=== PATIENT | male | born 1955 | race Caucasian/White ===

== ENCOUNTER → 2017-12-12 02:30 | Outpatient (CLI) | payer OTHER, SELFPAY ==
[2017-12-12 07:43] LABS: Hemoglobin A1C 7.4 % (4.5-6.2)
[2017-12-12 08:28] LABS: CREATININE 0.93 mg/dL (0.70-1.30); Cholesterol 145 mg/dL (50-200); HDL Cholesterol 32 mg/dL (40-60); LDL CHOLESTEROL 45 mg/dL (<100); Potassium 4.5 mmol/L (3.5-5.1); Triglyceride 497 mg/dL (30-150)
== END ==
PROVIDERS: PCP Family Medicine; Visit Provider Family Medicine
DX: I10 Essential (primary) hypertension (principal); Z13.9 Encounter for screening, unspecified; E11.49 Type 2 diabetes mellitus with other diabetic neurological complication; E11.65 Type 2 diabetes mellitus with hyperglycemia
CPT/HCPCS: 36415; 80061; 83721; 82565; 83036; 84132

== ENCOUNTER 2018-02-07 07:37 | Outpatient (CLI) | payer OTHER, SELFPAY ==
[2018-02-07 12:57] LABS: Alkaline Phosphatase 112 U/L (46-116)
[2018-02-07 14:11] LABS: ESR 23 MM/HR (1-20)
[2018-02-07 14:34] LABS: Abs Immature Grans 0.01 k/cumm (0.0-0.09); Absolute Basophil Count 0.02 k/cumm (0.0-0.2); Absolute Eosinophil Count 0.14 k/cumm (0.0-0.7); Absolute Monocyte Count 0.34 k/cumm (0.11-0.7); Basophils % 0.5; Eosinophils % 3.2; HCT 36.7 % (40.0-50.0); Immature Grans % 0.2; Lymphocytes % 20.9; Mean Corp. HGB Concentration 35.4 g/dL (32.0-36.0); Mean Corpuscular Hemoglobin 32.7 pg (27.0-33.0); Mean Corpuscular Volume 92.2 fL (80-95); Monocytes % 7.9; Neutrophils % 67.3; Platelet Count 121 x1000/uL (130-400); RBC 3.98 m/cumm (4.50-6.00); RBC Distribution Width 13.5 % (11.8-14.1); White Blood Cell Count 4.31 k/cumm (4.4-10.8)
== END 2018-02-07 07:57 ==
PROVIDERS: PCP Family Medicine; Visit Provider Chiropractor Orthopedic
DX: M54.5 Low back pain (principal)
CPT/HCPCS: 36415; 85652; 84075; 85025

== ENCOUNTER 2018-02-07 13:45 | Outpatient (CLI) | payer OTHER, SELFPAY ==
--- NOTE | 2018-02-07 06:50 | DI.RAD_ITS ---
SYMPTOMS/DIAGNOSIS: LOW BACK AND LEFT LEG PAIN LUMBOSACRAL SPINE: AP and lateral projections of the lumbosacral spine are provided. The vertebral bodies are intact. At L1-2, there is disc space narrowing, discogenic sclerosis and hypertrophic spurring. Also, there is slight narrowing of the L5-S1 disc interspace and associated degenerative changes. The pedicles, spinous and transverse processes appear intact. The sacrum and sacroiliac joints as visualized are unremarkable. SUMMARY: Degenerative changes involving the lumbosacral spine as described above.
== END 2018-02-07 14:05 ==
PROVIDERS: PCP Family Medicine; Visit Provider Chiropractor Orthopedic
DX: M54.5 Low back pain (principal); M79.605 Pain in left leg; M51.17 Intervertebral disc disorders with radiculopathy, lumbosacral region
CPT/HCPCS: 72100

== ENCOUNTER 2018-02-17 00:50 | Outpatient (CLI) | payer OTHER, SELFPAY ==
--- NOTE | 2018-02-17 14:24 | DI.MRI_ITS ---
SYMPTOMS/DIAGNOSIS: LT SCIATICA LUMBOSACRAL SPINE MRI: MRI examination of the lumbosacral spine was performed according to the usual protocol. No significant bony signal abnormality is seen. There are moderate hypertrophic facet joint degenerative changes bilaterally at L 3 - 4, L 4 - 5 and L 5 - S 1. The conus medullaris appears intact. There are disc bulges from L 2 - 3 through the L 5 - S 1 level. There is board based mild disc herniation at L 4 - 5 most prominent centrally right paracentral and right lateral with possible impingement on the right L 5 nerve root. At L 5 - S 1 there is a central and left lateral disc herniation which could impinge the left S 1 nerve root. Correlation with the patient's neurologic examination requested. No other significant disc herniation identified in the lumbar region. The combination of disc bulge and facet hypertrophy at L 4 - 5 causes right lateral recess stenosis and there is borderline central canal spinal stenosis at this level. No neural foraminal stenosis seen. CONCLUSION: 1. Findings at L 4 - 5 of right lateral recess stenosis and borderline central canal spinal stenosis. Superimposed broad based right side disc herniation may impinge right L 5 nerve root. 2. Findings at L 5 - S 1 of mild left disc herniation, possibility of impingement on left S 1 nerve root is raised.
== END 2018-02-17 01:10 ==
PROVIDERS: PCP Family Medicine; Visit Provider Chiropractor Orthopedic
DX: M54.42 Lumbago with sciatica, left side (principal); M51.17 Intervertebral disc disorders with radiculopathy, lumbosacral region; M48.07 Spinal stenosis, lumbosacral region
CPT/HCPCS: 72148

== ENCOUNTER 2018-03-28 01:09 | Outpatient (CLI) | payer OTHER, SELFPAY ==
[2018-03-28 08:26] LABS: Platelet Count 101 x1000/uL (130-400)
== END 2018-03-28 01:29 ==
PROVIDERS: PCP Family Medicine; Visit Provider Nurse Practitioner Family
DX: D69.6 Thrombocytopenia, unspecified (principal); M51.27 Other intervertebral disc displacement, lumbosacral region
CPT/HCPCS: 36415; 85049

== ENCOUNTER → 2018-03-28 | Outpatient (CLI) | payer OTHER, SELFPAY ==
--- NOTE | 2018-03-28 06:00 | DI.RAD_ITS ---
SYMPTOM/DIAGNOSIS: LUMBAR RADICULOPATHY PAIN CLINIC: Fluoroscopy Time: 26 Fluoroscopy was utilized by Dr. Keenan during a spinal injection. Please refer to the procedure report for complete details.
[2018-03-28 09:31] VITALS: BP 126/86; PULSE 76; RESP 18; TEMP 36.2; O2SAT 97
[2018-03-28] MEDS: Omnipaque 240 MG/ML 50 ML BTL IJ (10:06)
--- NOTE | 2018-03-28 10:08 | PDOC.PAIN ---
Pain Clinic Procedure Note Current Active Problems Problem Status Onset Lumbar disc disease with radiculopathy Chronic LUMBAR / SACRAL TRANSFORAMINAL INJECTION HANH BARFIELD has been referred [facility] the [facility] for a transforaminal nerve root block and steroid injection. COMMENTS: Patient has left lower extremity disc protrusion and S1 nerve compression. His plts are 101 today. Patient was interviewed and the medical record reviewed. There were no medical, pharmacologic, radiographic or other structural contraindications to attempting fluoroscopically guided transforaminal nerve root block and epidural steroid injection. Risks and expected side effects as well as potential benefit of the procedure were reviewed and voiced concerns addressed. The printed consent form was signed and witnessed. Standard time-out procedure was performed. Patient was placed in the prone position on the fluoroscopy table and automated blood pressure cuff and pulse oximeter applied. Fluoroscopy was utilized to identify the { left } neural foramen at S1 . A skin wilfrid was made for the needle insertion site. A Chlorhexadine prep was carried out, and sterile drapes were applied. Local anesthesia was achieved in the skin and subcutaneous tissues. A 22 gauge curved tip spinal needle was then inserted, advanced with fluoroscopic guidance into the neural foramen, confirmed on the lateral view. After negative aspiration, 2 ml of Omnipaque 240 was injected confirming position in A/P and lateral views. This showed a good spread of dye transforaminally into the epidural space. There was no vascular update with contrast injection under continuous fluoroscopy and digital substraction. 40 mg of Depo-Medrol was injected, followed by 0.5 ml of 1% Xylocaine flush for the nerve root block, as well. There was no unusual discomfort expressed.The needle was withdrawn. The patient tolerated the procedure well. A Band-Aid was applied. Vital signs were stable throughout the procedure and were as recorded in nursing records. If given, dosages of intravenous drugs for anxiolysis and analgesia were documented in nursing records. Follow up plans and appointments were discussed. Post procedure instruction was given as documented in nursing records and patient was discharged in the care of an identified furniture delivery driver. COMMENTS: Pain went from 10/02-06/04. He will follow-up as needed. He does not get significant relief he will follow-up with Angélica Bruce the office. He was to watch his Blood glucose to be elevated his platelets are 101 CC: Naga Keys
[2018-03-28 10:12] VITALS: BP 124/91; PULSE 81; RESP 22; O2SAT 96
[2018-03-28] MEDS: methylPREDNISolone ACETATE 40 MG/ML VIAL IJ (10:12)
--- NOTE | 2018-03-28 10:19 | PDOC.PAIN_ITS ---
Pain Clinic Procedure Note Current Active Problems Problem Status Onset Lumbar disc disease with radiculopathy Chronic LUMBAR / SACRAL TRANSFORAMINAL INJECTION HANH BARFIELD has been referred to the [facility] for a transforaminal nerve root block and steroid injection. COMMENTS: Patient has left lower extremity disc protrusion and S1 nerve compression. His plts are 101 today. Patient was interviewed and the medical record reviewed. There were no medical , pharmacologic, radiographic or other structural contraindications to attempting fluoroscopically guided transforaminal nerve root block and epidural steroid injection. Risks and expected side effects as well as potential benefit of the procedure were reviewed and voiced concerns addressed. The printed consent form was signed and witnessed. Standard time-out procedure was performed. Patient was placed in the prone position on the fluoroscopy table and automated blood pressure cuff and pulse oximeter applied. Fluoroscopy was utilized to identify the { left } neural foramen at S1 . A skin wilfrid was made for the needle insertion site. A Chlorhexadine prep was carried out, and sterile drapes were applied. Local anesthesia was achieved in the skin and subcutaneous tissues. A 22 gauge curved tip spinal needle was then inserted, advanced with fluoroscopic guidance into the neural foramen, confirmed on the lateral view. After negative aspiration, 2 ml of Omnipaque 240 was injected confirming position in A/P and lateral views. This showed a good spread of dye transforaminally into the epidural space. There was no vascular update with contrast injection under continuous fluoroscopy and digital substraction. 40 mg of Depo-Medrol was injected, followed by 0.5 ml of 1% Xylocaine flush for the nerve root block, as well. There was no unusual discomfort expressed.The needle was withdrawn. The patient tolerated the procedure well. A Band-Aid was applied. Vital signs were stable throughout the procedure and were as recorded in nursing records. If given, dosages of intravenous drugs for anxiolysis and analgesia were documented in nursing records. Follow up plans and appointments were discussed. Post procedure instruction was given as documented in nursing records and patient was discharged in the care of an identified personal driver. COMMENTS: Pain went from 10/02-06/04. He will follow-up as needed. He does not get significant relief he will follow-up with Angélica Bruce the office. He was to watch his Blood glucose to be elevated his platelets are 101 CC: Naga Keys
== END ==
PROVIDERS: PCP Family Medicine; Visit Provider Anesthesiology Pain Medicine
DX: M51.16 Intervertebral disc disorders with radiculopathy, lumbar region (principal); G89.29 Other chronic pain
CPT/HCPCS: 64483; 72200; J1030; Q9967

== ENCOUNTER 2018-03-31 09:30 | Day surgery (SDC) | payer OTHER, SELFPAY ==
[2018-03-31 10:08] VITALS: BP 154/86; PULSE 69; RESP 16; TEMP 36.5; O2SAT 98
[2018-03-31] MEDS: Lactated Ringers 1,000 ML 30 ML IV (10:32)
--- NOTE | 2018-03-31 11:08 | ENDO_ITS ---
Date of service: 03/31/18 Endoscopy Report DATE OF PROCEDURE: 03/31/18 PRE-OP DIAGNOSIS: Dysphasia POST-OP DIAGNOSIS: other (Gastritis) PROCEDURE: EGD with biopsies by lisette mena SURGEON: Jayme Tillman ANESTHESIA: MAC (Allie Mathis CRNA; ASA 3 Mallampati class) ESTIMATED BLOOD LOSS: 1 PATHOLOGY: other (Gastric antral biopsies) COMPLICATIONS: None DISPOSITION: same day INDICATIONS: A pleasant 62 y/o male with history of GERD, DM Type II, Obesity, COPD, Fatty liver, and DARIANA arrives with complaints of dysphagia since 03/16/18. He reports that while he was taking his pills one got stuck he drank water and attempted to eat some food to help the pill go down with no change in the sensation the a pill was stuck in his throat. He touches the base of his neck near the sternal notch when describing the location. He reports this sensation has persisted since that day and when he swallows or inhales the pain radiates into his epigastric region and sometimes into his upper back. He states If I could just throw up, I think it would feel better. He is constantly feeling nausea's which has not effected his eating. He is able to eat and drink as normal with no restrictions at this time. He states that he has had previous upper endoscopies in 2002 (mild, chronic duodenitis) and 2005 ( reflux esophagitis without evidence of Moser's esophagus). FINDINGS: In examining the upper gastrointestinal tract from the oropharynx to the third portion of the duodenum, the patient was noted to have some inflammation in the gastric antrum with inflamed rugal folds. Multiple biopsies were taken of this. The duodenum and esophagus appeared grossly normal Z line was seen in the esophagus at 39 cm it was regular PROCEDURE DESCRIPTION: The patient was brought to the procedure room. Monitoring for telemetry, end-tidal CO2, O2 saturation, blood pressure were applied. An appropriate timeout was taken reviewing the patient's identification, allergies, medications,and procedure. A bite was placed, and sedation was titrated for effect by the TRANSCRIPTION SPECIALIST. An Olympus variable stiffness endoscope was advanced from the oropharynx to the third portion of the duodenum without difficulty. The scope was then withdrawn in circumferential manner from the duodenum back to the oropharynx. In performing withdrawal of the scope, the duodenum appeared grossly normal. The scope was withdrawn into the gastric antrum and retroflexed to examine the entire stomach. And the gastric antrum there is significant amount of inflammatory changes seen no brianne ulcerations linear rise of the rugae appeared dilated and inflamed multiple biopsies were taken of these the remainder of the stomach appeared grossly normal. The scope was then withdrawn to the GE junction which I measured at 39 cm The Z line was at 39 cm and appeared regular. I withdrew the scope through the remainder of the esophagus all which appear grossly normal. No evidence of narrowing or obstruction was noted in the esophagus scope was then withdrawn terminating the upper endoscopy. Plan: We will await pathology before making further recommendations.
--- NOTE | 2018-03-31 11:45 | STOM_PTH ---
PATIENT: Nick Beebe LOC: [facility] U#:[id number] AGE/SX: 62/M ROOM: RE03/31/[address]: Jayme Tillman DO : 1955 BED: DIS: 03/31/2018 SPEC #: [id number] RECD: 03/31/18 12:31 STATUS: HERSON REQ #: [id number] NATALIO: 03/31/18 11:[address]: Jayme Tillman DEPT: Surgical Specimen RECD BY: Kenya Justin ENTERED: 03/31/18 12:31 SP TYPE: STOMACH OTHR DR: Naga Keys MD Tissues: 1 - STOMACH BIOPSY Procedures: GROSS AND MICRO LEVEL 4 IMMUNOPEROXIDASE STAIN Comments: [id number]
[2018-03-31 12:32] VITALS: BP 140/71; PULSE 69; RESP 18; TEMP 36.1; O2SAT 96
--- NOTE | 2018-03-31 12:53 | W.PM.DSUDISC ---
Discharge Plan Discharge Details Reason For Visit: DYSPHAGIA Attending Provider: Jayme Tillman Primary Care Provider: Naga Keys Home Meds and New Rx's Prescriptions: Continue ibuprofen 800 mg tablet 800 mg PO TID PRN (Reason: pain) Qty: 90 RF: 2 acetaminophen 500 MG tablet 2 tab PO PRN RF: 0 multivitamin 1 EACH capsule 1 ea PO DAILY RF: 0 aspirin [Aspirin Low-Strength] 81 MG tablet,chewable 81 mg PO DAILY RF: 0 olopatadine [Pataday] 2.5 ML drops 1 drp Ophthalmic DAILY RF: 0 triamcinolone acetonide 15 GM cream 1 applic Topical BID PRNQty: 45 RF: 2 fluticasone 16 GM spray,suspension 2 spry NS DAILY Qty: 3 RF: 3 dulaglutide [Trulicity] 1.5 MG/0.5 ML pen injector 1.5 mg SQ weekly Qty: 4 RF: 3 pantoprazole 40 MG tablet,delayed release (DR/EC) 40 mg PO BID Qty: 180 RF: 3 irbesartan [Avapro] 150 MG tablet 1 tab PO DAILY Qty: 90 RF: 3 furosemide [Lasix] 20 MG tablet 1 tab PO DAILY Qty: 90 RF: 3 blood sugar diagnostic [Accu-Chek Leanne Plus test strp] 1 EACH strip 1 ea Miscellaneous DAILY Qty: 100 RF: 3 atorvastatin 40 MG tablet 40 mg PO DAILY Qty: 90 RF: 4 propranolol [Inderal LA] 60 MG capsule,extended release 24 hr 60 mg PO DAILY Qty: 90 RF: 3 insulin aspart U-100 [Novolog Flexpen U-100 Insulin] 100 UNIT/1 ML insulin pen 20 - 50 units SQ TID Qty: 10 RF: 4 quinine sulfate [Qualaquin] 324 MG capsule 1 tab PO HS PRNQty: 90 RF: 3 insulin regular hum U-500 conc [Humulin R U-500 (Conc) Kwikpen] 500 UNIT/1 ML insulin pen SQ TID Qty: 3 RF: 5 diphenhydramine HCl 25 MG capsule 50 mg PO QID PRN PRNRF: 0 carboxymethylcellulose sodium [Refresh Plus] 30 EA dropperette 1 ea OU QID PRN PRNQty: 1 RF: 0 loratadine 10 mg Capsule 10 mg PO DAILY PRNRF: 0 Discharge Instructions Instructions: Upper Endoscopy (DC) Stand Alone Forms: DSU Post EGD Instructions, Jef Gamble (DSU) Activity:: Activity as Tolerated Diet:: As Tolerated DS: Diagnosis Discharge Diagnosis (1) Dysphagia: Status: Acute Asessment and Plan: Esophagogastroduodenoscopy performed: Endoscopy Report DATE OF PROCEDURE: 03/31/18 PRE-OP DIAGNOSIS: Dysphasia POST-OP DIAGNOSIS: other (Gastritis) PROCEDURE: EGD with biopsies by cold forcep SURGEON: Jayme Tillman ANESTHESIA: MAC (Allie Mathis CRNA; ASA 3 Mallampati class) ESTIMATED BLOOD LOSS: 1 PATHOLOGY: other (Gastric antral biopsies) COMPLICATIONS: None DISPOSITION: same day INDICATIONS: A pleasant 62 y/o male with history of GERD, DM Type II, Obesity, COPD, Fatty liver, and DARIANA arrives with complaints of dysphagia since 03/16/18. He reports that while he was taking his pills one got stuck he drank water and attempted to eat some food to help the pill go down with no change in the sensation the a pill was stuck in his throat. He touches the base of his neck near the sternal notch when describing the location. He reports this sensation has persisted since that day and when he swallows or inhales the pain radiates into his epigastric region and sometimes into his upper back. He states If I could just throw up, I think it would feel better. He is constantly feeling nausea's which has not effected his eating. He is able to eat and drink as normal with no restrictions at this time. He states that he has had previous upper endoscopies in 2002 (mild, chronic duodenitis) and 2005 (reflux esophagitis without evidence of Moser's esophagus). FINDINGS: In examining the upper gastrointestinal tract from the oropharynx to the third portion of the duodenum, the patient was noted to have some inflammation in the gastric antrum with inflamed rugal folds. Multiple biopsies were taken of this. The duodenum and esophagus appeared grossly normal Z line was seen in the esophagus at 39 cm it was regular PROCEDURE DESCRIPTION: The patient was brought to the procedure room. Monitoring for telemetry, end-tidal CO2, O2 saturation, blood pressure were applied. An appropriate timeout was taken reviewing the patient's identification, allergies, medications,and procedure. A bite was placed, and sedation was titrated for effect by the COMFORT FILLER. An Olympus variable stiffness endoscope was advanced from the oropharynx to the third portion of the duodenum without difficulty. The scope was then withdrawn in circumferential manner from the duodenum back to the oropharynx. In performing withdrawal of the scope, the duodenum appeared grossly normal. The scope was withdrawn into the gastric antrum and retroflexed to examine the entire stomach. And the gastric antrum there is significant amount of inflammatory changes seen no brianne ulcerations linear rise of the rugae appeared dilated and inflamed multiple biopsies were taken of these the remainder of the stomach appeared grossly normal. The scope was then withdrawn to the GE junction which I measured at 39 cm The Z line was at 39 cm and appeared regular. I withdrew the scope through the remainder of the esophagus all which appear grossly normal. No evidence of narrowing or obstruction was noted in the esophagus scope was then withdrawn terminating the upper endoscopy. Plan: We will await pathology before making further recommendations.
== END 2018-03-31 12:50 | disposition home or self-care (01) ==
LOC: SUR 09:30
PROVIDERS: PCP Family Medicine; Visit Provider Surgery
PROC: 0DJ68ZZ Inspection of Stomach, Via Natural or Artificial Opening Endoscopic (ICD-10-PCS; CPT 43235; principal; 2018-03-31 11:15)
DX: R13.10 Dysphagia, unspecified (principal); K29.60 Other gastritis without bleeding; K31.89 Other diseases of stomach and duodenum; E11.9 Type 2 diabetes mellitus without complications; Z79.4 Long term (current) use of insulin; K21.9 Gastro-esophageal reflux disease without esophagitis; J44.9 Chronic obstructive pulmonary disease, unspecified; G47.33 Obstructive sleep apnea (adult) (pediatric)
CPT/HCPCS: 43239; 88305; 88361

== ENCOUNTER 2018-05-03 08:18 | Outpatient (CLI) | payer OTHER, SELFPAY ==
[2018-05-03 08:35] VITALS: BP 153/84; PULSE 78; RESP 18; TEMP 36.8; O2SAT 98
[2018-05-03 09:49] LABS: Platelet Count 95 x1000/uL (130-400)
[2018-05-03] MEDS: methylPREDNISolone ACETATE 40 MG/ML VIAL IJ (10:35)
[2018-05-03] MEDS: Omnipaque 240 MG/ML 50 ML BTL IJ (10:35)
[2018-05-03] MEDS: Bupivacaine 0.5% Pres-Free 30 ML VIAL IJ (10:35)
--- NOTE | 2018-05-03 10:40 | DI.RAD_ITS ---
SYMPTOM/DIAGNOSIS: LUMBAR RADICULOPATHY, EPIDURAL STEROID INJECTION C-ARM: Fluoroscopy Time: 40 sec 49.27mGy Fluoroscopy was utilized by Dr. Keenan during the performance of a transforaminal epidural steroid injection. Please refer to the procedure report for complete details.
--- NOTE | 2018-05-03 10:42 | PDOC.PAIN ---
Pain Clinic Procedure Note Current Active Problems Problem Status Onset Lumbar radiculitis Acute LUMBAR / SACRAL TRANSFORAMINAL INJECTION HANH BARFIELD has been referred to the [facility] for a transforaminal nerve root block and steroid injection. COMMENTS: Patient has left laterral recess disc herniation at L5-S1. He is status post a transforaminal injection at S1 transient relief. He his platelets on the last visit were 101. He tells me he does not have a diagnosis why his platelets are low. Patient was interviewed and the medical record reviewed. There were no medical, pharmacologic, radiographic or other structural contraindications to attempting fluoroscopically guided transforaminal nerve root block and epidural steroid injection. Risks and expected side effects as well as potential benefit of the procedure were reviewed and voiced concerns addressed. The printed consent form was signed and witnessed. Standard time-out procedure was performed. Patient was placed in the prone position on the fluoroscopy table and automated blood pressure cuff and pulse oximeter applied. Fluoroscopy was utilized to identify the { left/ L5} neural foramen between L5 and S1 . A skin wilfrid was made for the needle insertion site. A Chlorhexadine prep was carried out, and sterile drapes were applied. Local anesthesia was achieved in the skin and subcutaneous tissues. A 22 gauge curved tip spinal needle was then inserted, advanced with fluoroscopic guidance into the neural foramen, confirmed on the lateral view. After negative aspiration, 2 ml of Omnipaque 240 was injected confirming position in A/P and lateral views. This showed a good spread of dye transforaminally into the epidural space. There was no vascular update with contrast injection under continuous fluoroscopy and digital substraction. 60 mg of Depo-Medrol was injected, followed by 0.5 ml of 1% Xylocaine flush for the nerve root block, as well. There was no unusual discomfort expressed.The needle was withdrawn. The patient tolerated the procedure well. A Band-Aid was applied. Vital signs were stable throughout the procedure and were as recorded in nursing records. If given, dosages of intravenous drugs for anxiolysis and analgesia were documented in nursing records. Follow up plans and appointments were discussed. Post procedure instruction was given as documented in nursing records and patient was discharged in the care of an identified garbage truck driver. COMMENTS: Pain went from 6/10-0/10. He will follow-up as needed. I have made a referral to [facility] to see Dr. Rogers in the spine center if he is not better. I have also told him he needs to follow-up with his PCP and possibly hematology to evaluate his thrombocytopenia. CC: Naga Keys MD
[2018-05-03 10:43] VITALS: BP 149/92; PULSE 82; RESP 21; O2SAT 95
--- NOTE | 2018-05-03 10:46 | PDOC.PAIN_ITS ---
Pain Clinic Procedure Note Current Active Problems Problem Status Onset Lumbar radiculitis Acute LUMBAR / SACRAL TRANSFORAMINAL INJECTION HANH BARFIELD has been referred to the [facility] for a transforaminal nerve root block and steroid injection. COMMENTS: Patient has left laterral recess disc herniation at L5-S1. He is status post a transforaminal injection at S1 transient relief. He his platelets on the last visit were 101. He tells me he does not have a diagnosis why his platelets are low. Patient was interviewed and the medical record reviewed. There were no medical, pharmacologic, radiographic or other structural contraindications to attempting fluoroscopically guided transforaminal nerve root block and epidural steroid injection. Risks and expected side effects as well as potential benefit of the procedure were reviewed and voiced concerns addressed. The printed consent form was signed and witnessed. Standard time-out procedure was performed. Patient was placed in the prone position on the fluoroscopy table and automated blood pressure cuff and pulse oximeter applied. Fluoroscopy was utilized to identify the { left/ L5} neural foramen between L5 and S1 . A skin wilfrid was made for the needle insertion site. A Chlorhexadine prep was carried out, and sterile drapes were applied. Local anesthesia was achieved in the skin and subcutaneous tissues. A 22 gauge curved tip spinal needle was then inserted, advanced with fluoroscopic guidance into the neural foramen, confirmed on the lateral view. After negative aspiration, 2 ml of Omnipaque 240 was injected confirming position in A/P and lateral views. This showed a good spread of dye transforaminally into the epidural space. There was no vascular update with contrast injection under continuous fluoroscopy and digital substraction. 60 mg of Depo-Medrol was injected, followed by 0.5 ml of 1% Xylocaine flush for the nerve root block, as well. There was no unusual discomfort expressed.The needle was withdrawn. The patient tolerated the procedure well. A Band-Aid was applied. Vital signs were stable throughout the procedure and were as recorded in nursing records. If given, dosages of intravenous drugs for anxiolysis and analgesia were documented in nursing records. Follow up plans and appointments were discussed. Post procedure instruction was given as documented in nursing records and patient was discharged in the care of an identified local hazmat driver. COMMENTS: Pain went from 6/10-0/10. He will follow-up as needed. I have made a referral to [facility] [place] Dr. Rogers in the spine center if he is not better. I have also told him he needs to follow-up with his PCP and possibly hematology to evaluate his thrombocytopenia. CC: Naga Keys MD
== END 2018-05-03 08:38 ==
PROVIDERS: PCP Family Medicine; Visit Provider Anesthesiology Pain Medicine
DX: M54.16 Radiculopathy, lumbar region (principal)
CPT/HCPCS: 64483; 36415; 72100; 85049; J1030; Q9967

== ENCOUNTER 2018-06-06 01:58 | Outpatient (CLI) | payer OTHER, SELFPAY ==
--- NOTE | 2018-06-06 07:29 | DI.CT_ITS ---
SYMPTOM/DIAGNOSIS: LT SIDED ABD PAIN, R10.[address]: CT scan of the abdomen and pelvis was performed following the uneventful administration of intravenous and oral contrast material. Comparison CT of the chest is 08/19/15. The visualized lung bases are clear. There does appear to be diffuse decreased attenuation of the liver suggesting fatty infiltration. The liver also has a lobulated contour with an enlarged left lobe suggesting hepatic cirrhosis. No hepatic mass is seen. The portal, superior mesenteric and splenic veins are all patent. The patient is status post cholecystectomy. No biliary ductal dilatation is present. The pancreas is unremarkable. The spleen appears mildly enlarged. The adrenal glands are unremarkable. The kidneys show normal and symmetric enhancement. There are cysts seen on the left kidney. No solid renal mass is present. The urinary bladder is intact. The reproductive organs are unremarkable. There is atherosclerosis of the abdominal aorta but no aneurysmal dilatation is present. No significant abdominal or pelvic adenopathy, ascites or pneumoperitoneum is present. There is diverticulosis seen in the descending and sigmoid colon but no evidence of acute diverticulitis. There is a normal appendix present. The bowel shows no evidence of obstruction or inflammation. IMPRESSION: No evidence of an acute abdomen. Colonic diverticulosis but no evidence of acute diverticulitis. Hepatic steatosis. Hepatosplenomegaly. Findings suggestive of hepatic cirrhosis.
[2018-06-06 08:04] LABS: CREATININE 1.05 mg/dL (0.70-1.30)
[2018-06-06 08:07] LABS: Hemoglobin A1C 9.3 % (4.5-6.2)
[2018-06-06] MEDS: Omnipaque 350 MG/ML 100 ML BTL IJ (08:58)
[2018-06-06] MEDS: Omnipaque 350 MG/ML 50 ML BTL PO (08:59)
[2018-06-06] MEDS: Breeza Beverage 473 ML BTL PO ×2 (08:59→09:00)
== END 2018-06-06 02:18 ==
PROVIDERS: PCP Family Medicine; Visit Provider Family Medicine
DX: R10.32 Left lower quadrant pain (principal); K57.30 Diverticulosis of large intestine without perforation or abscess without bleeding; K76.0 Fatty (change of) liver, not elsewhere classified; K74.60 Unspecified cirrhosis of liver; R16.2 Hepatomegaly with splenomegaly, not elsewhere classified; E11.65 Type 2 diabetes mellitus with hyperglycemia
CPT/HCPCS: 36415; 74177; 82565; 83036; J3490; Q9967

== ENCOUNTER 2018-06-13 00:38 | Outpatient (CLI) | payer OTHER, SELFPAY ==
[2018-06-13 11:16] LABS: Prothrombin Time 10.3 sec (9.3-11.0)
[2018-06-13 12:05] LABS: Anion Gap 10.4 mmol/L (3-11); BUN 13 mg/dL (7-18); CO2 25.6 mmol/L (21.0-32.0); Chloride 101 mmol/L (98-107); Glucose 350 mg/dL (70-100); Sodium 137 mmol/L (136-145)
== END 2018-06-13 00:58 ==
PROVIDERS: PCP Family Medicine; Visit Provider Orthopaedic Surgery Orthopaedic Surgery of the Spine
DX: M51.16 Intervertebral disc disorders with radiculopathy, lumbar region (principal)
CPT/HCPCS: 36415; 80048; 85610

== ENCOUNTER 2018-09-13 08:51 | Outpatient (CLI) | payer MEDICARE, OTHER, MEDICAID, SELFPAY ==
[2018-09-13 13:43] LABS: Hemoglobin A1C 6.9 % (4.5-6.2)
== END 2018-09-13 09:11 ==
PROVIDERS: PCP Family Medicine; Visit Provider Family Medicine
DX: E11.49 Type 2 diabetes mellitus with other diabetic neurological complication (principal); E11.65 Type 2 diabetes mellitus with hyperglycemia
CPT/HCPCS: 36415; 83036

== ENCOUNTER → 2018-10-05 13:08 | Outpatient (BNVA) | payer MEDICARE, OTHER, MEDICAID, SELFPAY | PROVIDERS: PCP Family Medicine; Referring Provider Family Medicine; Visit Provider Orthopaedic Surgery | DX: M75.81 Other shoulder lesions, right shoulder (principal); E66.01 Morbid (severe) obesity due to excess calories | CPT/HCPCS: 20610; 99211; 99212; J1040 ==

== ENCOUNTER 2019-02-16 10:47 | Outpatient (CLI) | payer MEDICARE, OTHER, SELFPAY ==
--- NOTE | 2019-02-16 09:56 | DI.RAD_ITS ---
EXAM: XR KNEE LT 4V AP,LAT,VICTORINA,PAT CLINICAL HISTORY: L knee pain TECHNIQUE: COMPARISON: LEFT KNEE LIMITED 1 OR 2 VIEWS from 06/06/2014 FINDINGS: Four views were obtained. There are prominent enthesophytes of the patella unchanged appearance from examination of May 2014. Mild marginal osteophyte formation noted at the patellofemoral joint as well. No other significant bony abnormality seen. IMPRESSION:
--- NOTE | 2019-02-16 09:56 | DI.RAD_ITS ---
EXAM: XR SHOULDER RT COMPLETE 2+V CLINICAL HISTORY: R shoulder pain TECHNIQUE: COMPARISON: No exams were available for comparison FINDINGS: Three views were obtained. There are prominent hypertrophic degenerative changes of acromioclavicula r and glenohumeral joints. Moderate narrowing of cartilaginous joint space of the glenohumeral joint appears to be present. No other significant bony or soft tissue abnormality seen. IMPRESSION: Moderate degenerative changes of glenohumeral and AC joints.
== END 2019-02-16 11:07 ==
PROVIDERS: PCP Family Medicine; Referring Provider Family Medicine; Visit Provider Student in an Organized Health Care Education/Training Program
DX: M25.511 Pain in right shoulder (principal); M75.81 Other shoulder lesions, right shoulder; M19.011 Primary osteoarthritis, right shoulder; M17.32 Unilateral post-traumatic osteoarthritis, left knee
CPT/HCPCS: 20610; 99214; J7318; 73030; 73564

== ENCOUNTER 2019-02-27 01:22 | Outpatient (CLI) | payer MEDICARE, OTHER, SELFPAY ==
--- NOTE | 2019-02-27 14:35 | DI.MRI_ITS ---
EXAM: MR UPPER JOINT RT WO CLINICAL HISTORY: PAIN RT SHOULDER, M25.511. TECHNIQUE: Multiplanar multisequence MRI was performed. COMPARISON: XR SHOULDER RT COMPLETE 2+V from 02/16/2019 FINDINGS: Exam is limited by patient's body habitus. There is spurring at the AC joint which may mildly imping e on the distal supraspinatus muscle tendon junction. There is a small amount of fluid in the subacro mial, subdeltoid bursa. There is some thickening of the distal supraspinatus tendon but no focal tear . There is mild edema around the infraspinatus tendon but no focal tear. The subscapularis, biceps an d teres minor tendons appear intact. There is no significant muscle atrophy. No gross glenoid defects are seen. IMPRESSION: Thickening and irregularity of the supraspinatus tendon with increased signal could indicate partial tear versus severe tendinosis. Mild infraspinatus tendinosis is also seen.
== END 2019-02-27 01:42 ==
PROVIDERS: PCP Family Medicine; Visit Provider Student in an Organized Health Care Education/Training Program
DX: M25.511 Pain in right shoulder (principal); M75.81 Other shoulder lesions, right shoulder
CPT/HCPCS: 73221

== ENCOUNTER 2019-02-27 13:12 | Outpatient (CLI) | payer MEDICARE, OTHER, SELFPAY ==
[2019-02-27 13:50] LABS: Hemoglobin A1C 6.6 % (4.5-6.2)
== END 2019-02-27 13:32 ==
PROVIDERS: PCP Family Medicine; Visit Provider Family Medicine
DX: E11.9 Type 2 diabetes mellitus without complications (principal); M25.511 Pain in right shoulder; M75.81 Other shoulder lesions, right shoulder
CPT/HCPCS: 36415; 73221; 83036

== ENCOUNTER → 2019-03-08 12:16 | Outpatient (BNVA) | payer MEDICARE, OTHER, SELFPAY | PROVIDERS: PCP Family Medicine; Referring Provider Family Medicine; Visit Provider Student in an Organized Health Care Education/Training Program | DX: M75.81 Other shoulder lesions, right shoulder (principal); M75.21 Bicipital tendinitis, right shoulder; M75.41 Impingement syndrome of right shoulder; J44.9 Chronic obstructive pulmonary disease, unspecified; E11.42 Type 2 diabetes mellitus with diabetic polyneuropathy; Z79.4 Long term (current) use of insulin | CPT/HCPCS: 99213 ==

== ENCOUNTER → 2019-03-21 10:07 | Outpatient (BNVA) | payer MEDICARE, OTHER, SELFPAY | PROVIDERS: PCP Family Medicine; Referring Provider Family Medicine; Visit Provider Student in an Organized Health Care Education/Training Program | DX: M75.111 Incomplete rotator cuff tear or rupture of right shoulder, not specified as traumatic (principal); M75.51 Bursitis of right shoulder; M75.41 Impingement syndrome of right shoulder; M75.21 Bicipital tendinitis, right shoulder; M75.22 Bicipital tendinitis, left shoulder; M75.42 Impingement syndrome of left shoulder; M75.52 Bursitis of left shoulder; J44.9 Chronic obstructive pulmonary disease, unspecified; E11.42 Type 2 diabetes mellitus with diabetic polyneuropathy; I10 Essential (primary) hypertension | CPT/HCPCS: 99204; 99215 ==

== ENCOUNTER 2019-03-30 05:55 | Day surgery (SDC) | payer MEDICARE, OTHER, SELFPAY ==
[2019-03-30] VITALS (10 sets, daily range): BP systolic 109–128; BP diastolic 32–71; PULSE 72–84; RESP 16–26; TEMP 36.1–37.4; O2SAT 93–96
[2019-03-30] MEDS: Lactated Ringers 1,000 ML 100 ML IV (07:08)
[2019-03-30] MEDS: Bupivacaine LIPOSOME/PF 133 MG/10 ML VIAL IJ (07:19)
[2019-03-30] MEDS: Bupivacaine 0.5% Pres-Free 30 ML VIAL (07:19)
[2019-03-30] MEDS: ceFAZolin 3,000 MG in Normal Saline 100 ML 200 MG IVPB (07:35)
[2019-03-30] MEDS: EPINEPHrine 30 MG/30 ML VIAL (09:05)
--- NOTE | 2019-03-30 09:27 | HOME_ITS ---
Home Ventilator Equipment Home care company Reason: Obstructive Sleep Apnea Make: Respironics Model: Dreamstation Mask type: Face mask Mask size: Large Mode: CPAP Settings: 13 Oxygen bleed in (lpm): Condition: Fair Date last checked: 03/30/19 Year of last sleep study: Compliance Comments:
--- NOTE | 2019-03-30 10:26 | W.PM.DSUDISC ---
Discharge Plan Disposition Patient Disposition: HOME Condition: Stable Discharge Details Reason For Visit: Right shoulder surgery Attending Provider: Piter Farmer Primary Care Provider: Naga Keys Home Meds and New Rx's Prescriptions: New ondansetron 4 mg tablet,disintegrating 4 mg PO Q6H PRN (Reason: nausea and vomiting) Qty: 12 RF: 0 naproxen 250 mg tablet 250 - 500 mg PO BID PRN (Reason: pain, moderate) Qty: 60 RF: 0 oxycodone 5 mg tablet 5 - 10 mg PO Q4H PRN (Reason: pain, severe) Qty: 22 RF: 0 Continued fluticasone propionate 50 mcg/actuation spray,suspension 2 spray NS DAILY RF: 0 Humulin R U-500 (Conc) Kwikpen 500 unit/mL (3 mL) insulin pen 50 - 70 unit subcut TID RF: 0 triamcinolone acetonide 0.1 % cream 1 applic Topical BID PRN (Reason: ankle rash) Qty: 45 RF: 1 Novolog Flexpen U-100 Insulin 100 unit/mL insulin pen 20 - 50 unit subcut TID RF: 0 metoclopramide HCl [Reglan] 10 mg tablet 10 mg PO Q6H RF: 0 Jardiance 25 mg tablet 25 mg PO QAM Qty: 90 RF: 3 atorvastatin 40 mg tablet 40 mg PO DAILY Qty: 90 RF: 4 propranolol [Inderal LA] 60 mg capsule,extended release 24 hr 60 mg PO DAILY Qty: 90 RF: 3 furosemide [Lasix] 20 mg tablet 20 mg PO DAILY Qty: 90 RF: 3 irbesartan [Avapro] 150 mg tablet 150 mg PO DAILY Qty: 90 RF: 3 pantoprazole 40 mg tablet,delayed release (DR/EC) 40 mg PO BID Qty: 180 RF: 3 mometasone 0.1 % cream 1 applic TP DAILY Qty: 45 RF: 1 meclizine 12.5 mg tablet 12.5 mg PO TID PRN (Reason: dizziness) Qty: 30 RF: 3 acetaminophen 500 MG tablet 2 tab PO PRN RF: 0 multivitamin 1 EACH capsule 1 ea PO DAILY RF: 0 olopatadine [Pataday] 2.5 ML drops 1 drp Ophthalmic DAILY RF: 0 quinine sulfate [Qualaquin] 324 MG capsule 1 tab PO HS PRNQty: 90 RF: 3 (DME) Accu-Chek Leanne Plus test strp strip 1 ea Miscellaneous DAILY Qty: 100 RF: 3 Trulicity 1.5 mg/0.5 mL pen injector 1.5 mg subcut weekly Qty: 6 RF: 3 montelukast [Singulair] 10 mg tablet 10 mg PO DAILY Qty: 30 RF: 11 Refresh Plus 30 EA dropperette 1 ea OU QID PRN PRNQty: 1 RF: 0 Discharge Instructions Additional Instructions: Surgery: Shoulder arthroscopy with rotator cuff repair (subscapularis only) and arthroscopic biceps tenodesis Activity: You should keep your arm at your side in the strike zone at all times except for physical therapy. Limit external rotation to 30 degrees for 4 weeks as per physical therapy instructions. Do not try to lift or raise your arm using your own muscles for 6 weeks. You should use the sling whenever you are out of the house. You may have to adjust the abduction pillow or remove it for comfort. At home it is best to remove the sling and rest the arm on a pillow at your side or support the operative side with your other hand. You may allow the arm to dangle at your side. A physical therapy prescription will be provided separately. Prescriptions: Aspirin 81 mg take 1 daily to prevent a blood clot (resume tomorrow morning) Naproxen 250 mg take 1-2 every 12 hours with a meal as needed for moderate pain Oxycodone 5 mg take 1-2 every 4-6 hours as needed for severe pain You may use [id number] Tylenol (acetaminophen) as needed for mild pain. These pain medications may be taken all at once or in different combinations as needed. Zofran (ondansetron) 4 mg orally dissolving tablet as needed for nausea or vomiting. Also, recommend Colace (docusate) as a stool softener as surgery and pain medicine cause constipation. Dressings: Leave dressing in place for 2-3 days. May then remove and leave open to air or cover incisions with Band-Aids. Sutures will be removed in the office. May shower after 5 days. Follow-up: 10-14 days with an orthopedic physician certified surgical first assistant. Follow-up in [address] Farmer. Please call the office during business hours with any questions or concerns. Let us know right away if you develop any redness, drainage, fevers, chest pain, or trouble breathing. Do not drink alcohol or drive for at least 24 hours after anesthesia. Referrals: Piter Farmer MD [ [facility] STAFF PHYSICIAN] - Discharge Orders Discharge Orders: Discharge Order (Routine); Ordered 03/30/19 Ordered By: Piter Farmer DS: Diagnosis Discharge Diagnosis (1) Tendonitis of long head of biceps brachii of right shoulder: Status: Acute (2) Impingement syndrome of right shoulder: Status: Acute (3) Bursitis of right shoulder: Status: Acute (4) Rotator cuff tear, right: Status: Acute
--- NOTE | 2019-03-30 10:36 | W.PM.OP ---
Date of service: 03/30/19 Time of Service: 10:26 Operative Note Operative Note DATE OF PROCEDURE: 03/30/19 PRE-OP DIAGNOSIS: Right: 1. Rotator cuff tear 2. LHB tendinopathy 3. Bursitis 4. Impingement POST-OP DIAGNOSIS: same PROCEDURE: Right: 1. Extensive debridement, CPT# 16201. This involved using arthroscopic hand instruments, power instruments, and radiofrequency instruments to debride areas of labral tearing, synovitis, and chondromalacia within the glenohumeral joint anteriorly and posteriorly. 2. Arthroscopic biceps tenodesis, CPT# 87185. This involved arthroscopically suturing and reattaching the long head of the biceps tendon to the proximal humerus at the superior margin of the bicipital groove with a screw at the correct tension. 3. Subacromial decompression with partial acromioplasty, CPT# 22926. This involved using arthroscopic power instruments and a radiofrequency wand to complete a bursectomy and remove bone spurs on the undersurface of the acromion. 4. Rotator cuff repair, CPT# 44972. This involved repair of the subscapularis using anchor and sutures to reattach the rotator cuff back to the footprint of the lesser tuberosity. The assistant professor of chemistry was medically required in order to help assist in techniques above, which require positioning the arm, holding the arthroscope, and manipulating 2 to 4 instruments and sutures at the same time. This cannot be done without the help of an experienced assistant professor of chemistry. SURGEON: Piter Farmer INJECTION MOLDING MACHINE OPERATOR: Pal Castillo ANESTHESIA: GETA and regional ESTIMATED BLOOD LOSS: 15 PATHOLOGY: none sent COMPLICATIONS: None Patient was transported to: PACU Patient's condition: stable Implants: Arthrex: 4.75mm SwiveLocks x 1 Indications: The patient was diagnosed with the above conditions and appropriately indicated for surgical intervention. Please see complete medical record for details. Findings: Exam under anesthesia: Forward flexion limited to 155 degrees and exaggerated external rotation on the operative side. Glenohumeral joint: Significant chondromalacia anteriorly and posteriorly on the humeral head. Also centrally in the glenoid. Extensive labral fraying anteriorly superiorly and posteriorly. Significant synovitis anteriorly superiorly and posteriorly. Nearly full-thickness subscapularis tear with exposed lesser tuberosity. Long head of the biceps tendinitis. Partial articular sided supraspinatus and infraspinatus tearing involving approximately 5% of the articular margin. Subacromial space: Very extensive bursitis. Thinning of the rotator cuff far laterally. Minor supraspinatus fraying on the bursal side laterally. Moderate subacromial bone spur. Procedure Description: The patient was taken to the operating room and transferred to the operating room table. General anesthesia was induced. While under anesthesia, bilateral shoulders were examined. The patient was positioned in the beachchair position. All bony prominences were well-padded. Preoperative antibiotics were administered. The shoulder was prepped and draped in the usual sterile fashion. The correct patient, procedure, and side of the procedure were all verified prior to incision. Starting through the posterior portal a standard complete diagnostic arthroscopy was performed of the glenohumeral joint including inspection of the long head of the biceps, anterior and superior labrum, subscapularis tendon, supraspinatus and infraspinatus tendons, and axillary recess. The glenoid and humeral head cartilage as well as the posterior labrum were inspected from an anterior viewing portal. Significant findings noted above. . An arthroscopic biceps tenodesis was performed using a Loop N Tack method with a SutureTape FiberLink through an anterior rotator interval portal. The sutures were retracted and the biceps was tenotomized and the labrum using a radiofrequency ablator. The subscapularis was retracted off of the lesser tuberosity. The lesser tuberosity footprint was prepared using hand and power instruments for tendon healing. A rigid cannula was inserted anteriorly. The arm was positioned in neutral. Using a second lower anterior portal technique, a suture lasso was used to pass a suture tape fiber link through the lateral and superior subscapularis. This stitch was used for traction and passing of a fiber tape more medially and centrally in the subscapularis tendon body. A tap was used to localize placement of the anchor for both the arthroscopic biceps tenodesis and the subscapularis pair. All sutures were passed through the anchor eyelet and the anchor was brought down to the bone with the sutures tensioned appropriately. The arm was brought through full external rotation demonstrating no restricted motion from the repair and secure fixation of the tendon and anchor down to bone. Starting through the posterior portal, the arthroscope was directed into the subacromial space. A lateral 50 yard line lateral portal was created. A combination of power instruments and a radiofrequency ablator were used to debride bursitis anteriorly, posteriorly, and laterally as well as expose and smooth bone spurring on the undersurface of the acromion. The coracoacromial ligament was preserved. The bursectomy was completed viewing laterally and working from posteriorly and the rotator cuff was thoroughly inspected with findings noted above. The shoulder was drained of arthroscopic fluid. All portal sites were copiously irrigated. These incisions were closed using 3-0 nylon in a portal [id number] fashion, covered with Xeroform, dry gauze, and ABDs. The dressings were covered and secured with foam tape. The operative extremity was placed into a sling for immobilization. The patient awoke from anesthesia without complication and was transferred to the recovery room in a stable condition.
[2019-03-30] MEDS: Insulin REGULAR-Human 100 UNITS/ML UNIT 10 UNITS IV ×2 (10:59→13:01)
== END 2019-03-30 14:40 | disposition home or self-care (01) ==
PROVIDERS: PCP Family Medicine; Visit Provider Student in an Organized Health Care Education/Training Program
PROC: (CPT 29827; principal; 2019-03-30 07:30)
PROC: (CPT 23430; 2019-03-30 07:30)
DX: M75.21 Bicipital tendinitis, right shoulder (principal); M75.41 Impingement syndrome of right shoulder; M75.51 Bursitis of right shoulder; M75.111 Incomplete rotator cuff tear or rupture of right shoulder, not specified as traumatic; M94.211 Chondromalacia, right shoulder; G89.18 Other acute postprocedural pain; M65.811 Other synovitis and tenosynovitis, right shoulder; E11.42 Type 2 diabetes mellitus with diabetic polyneuropathy; I10 Essential (primary) hypertension; J44.9 Chronic obstructive pulmonary disease, unspecified; K21.9 Gastro-esophageal reflux disease without esophagitis; G47.33 Obstructive sleep apnea (adult) (pediatric); Z87.891 Personal history of nicotine dependence; Z79.4 Long term (current) use of insulin
CPT/HCPCS: 29827; 29823; 29828; 29826; 76942; J0690; J1100; J1885; J2250; J2405; L3670

== ENCOUNTER 2019-04-11 15:00 | Outpatient (CLI) | payer MEDICARE, OTHER, SELFPAY | END 2019-04-11 15:20 | PROVIDERS: PCP Family Medicine | DX: Z47.89 Encounter for other orthopedic aftercare (principal); M25.511 Pain in right shoulder; I10 Essential (primary) hypertension; J44.9 Chronic obstructive pulmonary disease, unspecified; E11.9 Type 2 diabetes mellitus without complications; Z79.4 Long term (current) use of insulin; Z87.891 Personal history of nicotine dependence ==

== ENCOUNTER → 2019-05-01 13:11 | Outpatient (BNVA) | payer MEDICARE, OTHER, SELFPAY | PROVIDERS: PCP Family Medicine; Referring Provider Family Medicine; Visit Provider Student in an Organized Health Care Education/Training Program | DX: Z47.89 Encounter for other orthopedic aftercare (principal); I10 Essential (primary) hypertension; J44.9 Chronic obstructive pulmonary disease, unspecified; E11.42 Type 2 diabetes mellitus with diabetic polyneuropathy; Z79.4 Long term (current) use of insulin; Z87.891 Personal history of nicotine dependence ==

== ENCOUNTER 2019-05-21 06:32 | Outpatient (CLI) | payer MEDICARE, OTHER, SELFPAY ==
--- NOTE | 2019-05-21 09:16 | DI.MRI_ITS ---
EXAM: MR BRAIN WO CLINICAL HISTORY: PERSISTENT VERTIGO, H81.1. TECHNIQUE: Multiplanar multisequence MRI was performed. COMPARISON: HEAD WITHOUT CONTRAST from 04/02/2011 FINDINGS: There are small air-fluid levels in both maxillary sinuses. There is minimal ethmoid sinus mucosal t hickening. There is mild cerebral atrophy. There are a few tiny scattered high signal lesions in th e white matter. No acute infarct, hemorrhage or mass is seen. The vascular flow voids appear intact . The mastoid air cells appear clear. The internal auditory canals are unremarkable. IMPRESSION: Atrophy and mild white matter changes of small vessel disease. Bilateral maxillary sinusitis.
== END 2019-05-21 06:52 ==
PROVIDERS: PCP Family Medicine; Visit Provider Family Medicine
DX: H81.10 Benign paroxysmal vertigo, unspecified ear (principal); J32.0 Chronic maxillary sinusitis; G31.89 Other specified degenerative diseases of nervous system
CPT/HCPCS: 70551

== ENCOUNTER → 2019-05-23 13:35 | Outpatient (BNVA) | payer MEDICARE, OTHER, SELFPAY | PROVIDERS: PCP Family Medicine; Referring Provider Family Medicine; Visit Provider Psychiatry & Neurology Neurology | DX: H81.10 Benign paroxysmal vertigo, unspecified ear (principal); E11.42 Type 2 diabetes mellitus with diabetic polyneuropathy; J44.9 Chronic obstructive pulmonary disease, unspecified | CPT/HCPCS: 99205; 99215 ==

== ENCOUNTER 2019-06-11 07:22 | Outpatient (CLI) | payer MEDICARE, OTHER, SELFPAY ==
[2019-06-11 12:59] LABS: Hemoglobin A1C 7.1 % (3.8-5.6)
== END 2019-06-11 07:42 ==
PROVIDERS: PCP Family Medicine; Visit Provider Family Medicine
DX: E11.9 Type 2 diabetes mellitus without complications (principal)
CPT/HCPCS: 36415; 82652; 83036

== ENCOUNTER → 2019-06-19 10:24 | Outpatient (BNVA) | payer MEDICARE, OTHER, SELFPAY | PROVIDERS: PCP Family Medicine; Referring Provider Family Medicine; Visit Provider Student in an Organized Health Care Education/Training Program | DX: Z47.89 Encounter for other orthopedic aftercare (principal); M75.01 Adhesive capsulitis of right shoulder ==

== ENCOUNTER 2019-08-24 01:56 | Outpatient (CLI) | payer MEDICARE, OTHER, SELFPAY ==
[2019-08-24 08:28] LABS: Hemoglobin A1C 6.5 % (3.8-5.6)
[2019-08-24 09:14] LABS: COMMENT (LAB VIEW ONLY) 113.62 mg/dL; Microalb ug/mg Crea 24.7 ug/mg Cr
[2019-08-24 09:41] LABS: ALT 56 U/L (16-63); AST 54 U/L (15-37); Albumin 3.8 g/dL (3.4-5.0); Alkaline Phosphatase 212 U/L (46-116); Anion Gap 8.2 mmol/L (3-11); BUN 15 mg/dL (7-18); CO2 26.8 mmol/L (21.0-32.0); CREATININE 1.07 mg/dL (0.70-1.30); Calcium 8.8 mg/dL (8.5-10.1); Chloride 104 mmol/L (98-107); Cholesterol 141 mg/dL (<200); Glucose 162 mg/dL (74-106); HDL Cholesterol 28 mg/dL (40-60); Potassium 4.5 mmol/L (3.5-5.1); Sodium 139 mmol/L (136-145); TSH 2.09 uIU/mL (0.36-3.74); Total Protein 6.9 g/dL (6.4-8.2); Triglyceride 486 mg/dL (<150)
[2019-08-24 09:51] LABS: LDL CHOLESTEROL 46 mg/dL (<100)
[2019-08-27 09:47] LABS: Vitamin D 25 Total 26.8 ng/ml (30-100)
== END 2019-08-24 02:16 ==
PROVIDERS: PCP Family Medicine; Visit Provider Internal Medicine Endocrinology, Diabetes & Metabolism
DX: E11.40 Type 2 diabetes mellitus with diabetic neuropathy, unspecified (principal); E78.2 Mixed hyperlipidemia; E55.9 Vitamin D deficiency, unspecified
CPT/HCPCS: 36415; 80053; 80061; 82306; 83721; 82043; 82565; 82570; 82652; 83036; 84156; 84443

== ENCOUNTER → 2019-09-18 10:15 | Outpatient (BNVA) | payer MEDICARE, OTHER, SELFPAY | PROVIDERS: PCP Family Medicine; Referring Provider Family Medicine; Visit Provider Student in an Organized Health Care Education/Training Program | DX: M75.01 Adhesive capsulitis of right shoulder (principal); Z47.89 Encounter for other orthopedic aftercare; J44.9 Chronic obstructive pulmonary disease, unspecified; E11.42 Type 2 diabetes mellitus with diabetic polyneuropathy | CPT/HCPCS: 99213 ==

== ENCOUNTER 2019-09-27 04:30 | Outpatient (CLI) | payer MEDICARE, OTHER, SELFPAY ==
--- NOTE | 2019-09-27 14:45 | DI.RAD_ITS ---
EXAM: XR CHEST 2V PA LATERAL CLINICAL HISTORY: SOB, R06.02, ? CHF TECHNIQUE: 2D digital imaging was performed. COMPARISON: CR CHEST 2 VIEWS PA,LAT from 01/31/2011 FINDINGS: The heart is not enlarged. The lungs are clear and well expanded. No pleural effusion seen. Mediastin al contours appear intact. IMPRESSION Normal chest
[2019-09-27 15:27] LABS: Abs Immature Grans 0.01 k/cumm (0.0-0.09); Absolute Basophil Count 0.02 k/cumm (0.0-0.2); Absolute Eosinophil Count 0.17 k/cumm (0.0-0.7); Absolute Lymphocyte Count 0.86 k/cumm (1.2-3.4); Absolute Monocyte Count 0.52 k/cumm (0.11-0.7); Absolute Neutrophil Count 2.69 k/cumm (1.2-6.7); Basophils % 0.5; HCT 40.3 % (40.0-50.0); HGB 13.9 g/dL (13.5-17.5); Immature Grans % 0.2 %; Lymphocytes % 20.1; Mean Corp. HGB Concentration 34.5 g/dL (32.0-36.0); Mean Corpuscular Hemoglobin 31.7 pg (27.0-33.0); Mean Corpuscular Volume 91.8 fL (80-95); Mean Platelet Volume 9.8 fL (8.0-11.0); Monocytes % 12.2; Platelet Count 110 x1000/uL (130-400); RBC 4.39 m/cumm (4.50-6.00); RBC Distribution Width 14.2 % (11.8-14.1); White Blood Cell Count 4.27 k/cumm (4.4-10.8)
[2019-09-27 15:38] LABS: Hemoglobin A1C 6.3 % (3.8-5.6)
[2019-09-27 16:24] LABS: NT-proBNP 36 pg/mL (<300)
[2019-09-27 16:27] LABS: ALT 65 U/L (16-63); AST 79 U/L (15-37); Albumin 3.9 g/dL (3.4-5.0); Alkaline Phosphatase 160 U/L (46-116); Anion Gap 7.2 mmol/L (3-11); BUN 22 mg/dL (7-18); CO2 27.8 mmol/L (21.0-32.0); CREATININE 1.18 mg/dL (0.70-1.30); Calcium 9.3 mg/dL (8.5-10.1); Chloride 107 mmol/L (98-107); Ferritin 178 ng/mL (26-388); Glucose 99 mg/dL (74-106); Potassium 4.1 mmol/L (3.5-5.1); Sodium 142 mmol/L (136-145); Total Protein 7.2 g/dL (6.4-8.2)
[2019-10-04 02:15] LABS: 1,25-Dihydroxyvitamin D 32 pg/mL (18-64)
== END 2019-09-27 04:50 ==
PROVIDERS: PCP Family Medicine; Visit Provider Nurse Practitioner Family
DX: R06.02 Shortness of breath (principal); R60.0 Localized edema; R73.9 Hyperglycemia, unspecified; E55.9 Vitamin D deficiency, unspecified; D64.9 Anemia, unspecified; E11.40 Type 2 diabetes mellitus with diabetic neuropathy, unspecified; E78.2 Mixed hyperlipidemia
CPT/HCPCS: 36415; 80048; 80053; 80061; 71046; 82043; 82570; 82652; 82728; 83036; 83880; 84443; 85025

== ENCOUNTER 2019-10-08 01:23 | Outpatient (CLI) | payer MEDICARE, OTHER, SELFPAY ==
--- NOTE | 2019-10-08 13:42 | DI.US_ITS ---
APPROVED REPORT EXAM: Comprehensive 2D, Doppler, and color-flow Echocardiogram Patient Location: Out-Patient Voicer: Wendy Bay RDCS (AE) Other Information Study Quality: Fair. Technically limited study due to body habitus. Conclusion This is a technically limited study. Left Ventricle : The left ventricle is normal size. The left ventricular systolic function is normal. The left ventricular ejection fraction is within the normal range. There is normal left ventricular wall thickness. There is normal LV segmental wall motion. The left ventricular diastolic function is normal. LVEF is 50%. Right Ventricle : Right ventricle is not well visualized. Right ventricular systolic function could n ot be assessed. The RVSP is 30.5mmHg. Atria : The left atrium size is normal. The right atrium size is normal. Valves: There are no hemodynamically significant valvular lesions. Great Vessels : The IVC collapses <50% with inspiration. There is no prior echocardiogram available for comparison. Wall motion Left Ventricle The left ventricle is normal size. The left ventricular systolic function is normal. The left ventric ular ejection fraction is within the normal range. There is normal left ventricular wall thickness. T here is normal LV segmental wall motion. The left ventricular diastolic function is normal. There is no ventricular septal defect visualized. LVEF is 50%. Right Ventricle Right ventricle is not well visualized. Right ventricular systolic function could not be assessed. Th e RVSP is 30.5mmHg. Atria The left atrium size is normal. The right atrium size is normal. The interatrial septum is intact wit h no evidence for an atrial septal defect. Aortic Valve Aortic valve is trileaflet. There is no aortic valvular stenosis. No aortic regurgitation is present. Mitral Valve There is mitral annular calcification. No evidence of mitral valve stenosis. Trace mitral regurgitati on. Tricuspid Valve The tricuspid valve is normal in structure. There is no tricuspid valve stenosis. Trace tricuspid reg urgitation. Pulmonic Valve Pulmonic valve is not well visualized. There is no pulmonic valvular stenosis. There is no pulmonic v alvular regurgitation. Great Vessels The aortic root is normal in size. The ascending aorta is normal in size. The IVC collapses <50% with inspiration. Pericardium Prominent anterior epicardial fat pad is present. 2D Dimensions IVSD d PLAX 1.10 cm M: 0.6-1.2 LV Vol A2C d MOD 83.9 mL LVPW d PLAX 1.13 cm M: 0.6 - 1.2 LV Vol A4C d MOD 70.7 mL LVID d PLAX 4.83 cm M: 4.2 - 5.8 LA vol/ BSA A2C s A-L 17.6 mL/m2 LVDs 3.60 cm M: 2.5 - 4.0 LA vol/ BSA A4C s A-L 11.7 mL/m2 Ao Root d 2.69 cm M: 3.1 - 3.7 LA Vol/ BSA Biplane s A-L 15.0 mL/m2 RA Area A4C 15.80 cm2 LA Area A4C s MOD 12.82 cm2 RA Vol/ BSA A4C s A-L 17.4 mL/m2 LA Area A2C s MOD 16.41 cm2 Ao Asc Diam d 3.20 cm M: 2.6 - 3.4 LV EF A4C MOD 50.9 % LV EF Teichholz 49.4 % LV EF A2C MOD 52.1 % LVEF (Borjas's) 51.99 % M: 52 - 72 LV EF Biplane MOD 52.0 % LV Volume 55.44 mL M: 62 - 150 SV 40.94 mL LV Volume Index 22.62 mL/m2 M: 34 - 74 SV Index 16.71 mL/m2 LV Vol Biplane MOD 78.7 mL FS 24.95 % M-Mode TAPSE 2.11 cm (M/F) >1.7 LV Diastology MV E' medial 0.096 (>0.07 m/s) E/A Ratio 0.9 LV E/e MED 6.15 (<14) MV E Vmax 0.59 (0.4-1.3 m/s) MV E' lateral 0.088 (>0.1 m/s) MV A Vmax 0.65 (0.4-1.3 m/s) LV E/e LAT 6.70 (<14) MV E/A Ratio 0.86 MV E/E' medial 6.19 MV E/E' lateral 6.74 Aortic Valve LVOT Area 3.08 cm2 AoV Area Vmax 1.98 cm2 LVOT Vmax 1.08 m/s AoV Area/ BSA (Vmax) 0.81 cm2/m2 LVOT Mean Salvador. 0.69 m/s KAN Mean Salvador. 1.92 cm2 LVOT Peak Grad 4.7 mmHg KAN Mean Salvador. Index 0.78 cm2/m2 LVOT Mean Grad 2.2 mmHg LVOT VTI 0.199 m LVOT Diam s 1.95 cm AoV Vmax 1.68 m/s Velocity Ratio 0.64 AoV Mean Salvador. 1.10 m/s AoV Peak Grad 11.3 mmHg LVOT SV 61.30 mL AoV Mean Grad 5.6 mmHg AoV VTI 0.292 m AoV Area VTI 2.10 cm2 AoV Area/ BSA (VTI) 0.86 cm/m2 Mitral Valve MV DT 293 (160-240 msec) MV PHT 85 msec MV Area PHT 2.59 cm2 Pulmonary Valve PV Vmax 1.23 (0.5-1.5 m/s) RVOT Peak Gr. 1.48 mmHg PV Peak Grad 6.1 mmHg RVOT Mean Gr. 0.80 mmHg PV Mean Grad 3.6 mmHg RVOT VTI 0.136 m PV VTI 0.245 m RVOT Vmax 0.61 m/s Tricuspid Valve TR Peak Grad 22.4 mmHg TR Vmax 2.37 m/s RA Pressure 8.00 mmHg RVSP (TR) 30.5 mmHg
== END 2019-10-08 01:43 ==
PROVIDERS: PCP Family Medicine; Visit Provider Family Medicine
DX: I10 Essential (primary) hypertension (principal); R06.02 Shortness of breath; R60.0 Localized edema; R63.5 Abnormal weight gain
CPT/HCPCS: 93306

== ENCOUNTER 2019-10-19 01:40 | Outpatient (CLI) | payer MEDICARE, OTHER, SELFPAY ==
[2019-10-19 13:03] LABS: Anion Gap 10.1 mmol/L (3-11); BUN 41 mg/dL (7-18); CO2 26.9 mmol/L (21.0-32.0); CREATININE 1.59 mg/dL (0.70-1.30); Calcium 9.3 mg/dL (8.5-10.1); Chloride 98 mmol/L (98-107); Estimated GFR 43.91 (mL/min/1.73m2); Glucose 115 mg/dL (74-106); Potassium 3.9 mmol/L (3.5-5.1); Sodium 135 mmol/L (136-145)
[2019-10-19 13:19] LABS: Ferritin 210 ng/mL (26-388); GGT 304 U/L (15-85)
[2019-10-22 10:53] LABS: HBs Antibody, Qual Negative (See Note); HBs Antibody, Quant 5.3 mIU/mL (See Note); Hepatitis B Core Antibody Negative (Negative); Hepatitis B surface Ag Negative (Negative); Hepatitis C Ab w Rflx HCV PCR Negative (Negative)
== END 2019-10-19 02:00 ==
PROVIDERS: Nurse Practitioner Family; PCP Family Medicine; Visit Provider Family Medicine
DX: R74.8 Abnormal levels of other serum enzymes (principal); E87.1 Hypo-osmolality and hyponatremia; D64.9 Anemia, unspecified
CPT/HCPCS: 36415; 80048; 86704; 86706; 86803; 87340; 82728; 82977

== ENCOUNTER 2019-11-16 01:45 | Outpatient (CLI) | payer MEDICARE, OTHER, SELFPAY ==
[2019-11-16 09:17] LABS: Anion Gap 9.3 mmol/L (3-11); BUN 27 mg/dL (7-18); CO2 29.7 mmol/L (21.0-32.0); CREATININE 1.53 mg/dL (0.70-1.30); Calcium 9.2 mg/dL (8.5-10.1); Chloride 102 mmol/L (98-107); Estimated GFR 45.91 (mL/min/1.73m2); Glucose 175 mg/dL (74-106); Potassium 3.8 mmol/L (3.5-5.1); Sodium 141 mmol/L (136-145)
[2019-11-16 10:20] LABS: GGT 284 U/L (15-85)
== END 2019-11-16 02:05 ==
PROVIDERS: PCP Family Medicine; Visit Provider Family Medicine
DX: E87.1 Hypo-osmolality and hyponatremia (principal)
CPT/HCPCS: 36415; 80048; 82977

== ENCOUNTER → 2019-12-19 10:28 | Outpatient (BNVA) | payer MEDICARE, OTHER, SELFPAY | PROVIDERS: PCP Family Medicine; Referring Provider Family Medicine; Visit Provider Student in an Organized Health Care Education/Training Program | DX: M75.01 Adhesive capsulitis of right shoulder (principal); Z98.890 Other specified postprocedural states; J44.9 Chronic obstructive pulmonary disease, unspecified; E11.9 Type 2 diabetes mellitus without complications; I10 Essential (primary) hypertension | CPT/HCPCS: 99213 ==

== ENCOUNTER 2020-01-23 05:28 | Outpatient (CLI) | payer MEDICARE, OTHER, SELFPAY ==
[2020-01-23 10:05] LABS: Hemoglobin A1C 6.3 % (<5.7)
[2020-01-23 10:26] LABS: ALT 57 U/L (16-63); AST 53 U/L (15-37); Albumin 3.8 g/dL (3.4-5.0); Alkaline Phosphatase 165 U/L (46-116); Anion Gap 3.4 mmol/L (3-11); BUN 21 mg/dL (7-18); Bilirubin, Total 0.9 mg/dL (0.2-1.0); CO2 31.6 mmol/L (21.0-32.0); CREATININE 1.04 mg/dL (0.70-1.30); Calcium 9.4 mg/dL (8.5-10.1); Chloride 104 mmol/L (98-107); GGT 363 U/L (15-85); Glucose 127 mg/dL (74-106); Potassium 4.3 mmol/L (3.5-5.1); Sodium 139 mmol/L (136-145); Total Protein 6.9 g/dL (6.4-8.2)
[2020-01-23 10:35] LABS: Bilirubin, Direct 0.27 mg/dL (0.00-0.20)
== END 2020-01-23 05:48 ==
PROVIDERS: PCP Family Medicine; Visit Provider Family Medicine
DX: R73.9 Hyperglycemia, unspecified (principal); E87.1 Hypo-osmolality and hyponatremia; R74.8 Abnormal levels of other serum enzymes; G72.89 Other specified myopathies
CPT/HCPCS: 36415; 80048; 80076; 82977; 83036

== ENCOUNTER 2020-01-30 15:24 | Outpatient (CLI) | payer MEDICARE, OTHER, SELFPAY ==
--- NOTE | 2020-01-30 15:00 | DI.RAD_ITS ---
EXAM: XR SHOULDER RT COMPLETE 2+V CLINICAL HISTORY: pain TECHNIQUE: COMPARISON: CR XR SHOULDER RT COMPLETE 2+V from 02/16/2019 FINDINGS: Two views were obtained. There is narrowing of the cartilaginous joint space of the joint. Moderate marginal osteophyte formation noted involving glenohumeral and acromioclavicular joints. No other s ignificant bony or soft tissue abnormality seen on this limited series. IMPRESSION: Degenerative changes as described above involving glenohumeral and acromioclavicular joints RADIATION DOSE DELIVERED: Total DLP
== END 2020-01-30 15:44 ==
PROVIDERS: PCP Family Medicine; Referring Provider Family Medicine; Visit Provider Student in an Organized Health Care Education/Training Program
DX: M19.011 Primary osteoarthritis, right shoulder (principal); Z47.89 Encounter for other orthopedic aftercare; M25.511 Pain in right shoulder; M75.01 Adhesive capsulitis of right shoulder; E11.40 Type 2 diabetes mellitus with diabetic neuropathy, unspecified; J44.9 Chronic obstructive pulmonary disease, unspecified; I10 Essential (primary) hypertension
CPT/HCPCS: 99214; 73030

== ENCOUNTER 2020-02-07 01:44 | Outpatient (CLI) | payer MEDICARE, OTHER, SELFPAY ==
--- NOTE | 2020-02-07 06:30 | DI.MRI_ITS ---
EXAM: MR UPPER JOINT RT WO CLINICAL HISTORY: Persistent pain after surgery,RT ROTATOR CUFF TEAR,BURSITIS,M75.51,M75.21. TECHNIQUE: Multiplanar multisequence MRI was performed. COMPARISON: MR MR UPPER JOINT RT WO from 02/27/2019 CR XR SHOULDER RT COMPLETE 2+V from 01/30/2020 FINDINGS: BONES: There is no fracture or contusion pattern. There is artifact from the orthopedic hardware. JOINTS: [id number] degenerative changes are seen at the acromioclavicular joint. The glenohume ral joint is normal. TENDONS: Supraspinatus: There is hyperintense signal seen in the supraspinatus tendon predominantly on the bur shane surface. Partial tear should be considered. Infraspinatus: Mild tendinosis of the infraspinatus tendon. Subscapularis: Unremarkable. Teres Minor: Unremarkable. Biceps: No evidence of a tear. MUSCLES: Mild fatty atrophy of the supraspinatus and infraspinatus muscles. GLENOID LABRUM: Unremarkable on this noncontrast examination. SOFT TISSUES: Unremarkable. LIGAMENTS: Unremarkable. OTHER: Small amount of fluid in the subacromial subdeltoid bursa. No evidence of a soft tissue mass. IMPRESSION: Findings suspicious for partial bursal surface tear of the supraspinatus tendon. Mild fatty atrophy of the supraspinatus and infraspinatus muscles. Mild tendinosis of the infraspinatus. Postsurgical changes in the humeral head. DATA REPOSITORY:
== END 2020-02-07 02:04 ==
PROVIDERS: PCP Family Medicine; Visit Provider Student in an Organized Health Care Education/Training Program
DX: M75.101 Unspecified rotator cuff tear or rupture of right shoulder, not specified as traumatic (principal); G89.18 Other acute postprocedural pain; M25.511 Pain in right shoulder; M75.51 Bursitis of right shoulder; M75.21 Bicipital tendinitis, right shoulder
CPT/HCPCS: 73221

== ENCOUNTER → 2020-02-27 09:28 | Outpatient (BNVA) | payer MEDICARE, OTHER, SELFPAY | PROVIDERS: PCP Family Medicine; Referring Provider Family Medicine; Visit Provider Student in an Organized Health Care Education/Training Program | DX: M19.011 Primary osteoarthritis, right shoulder (principal); M75.51 Bursitis of right shoulder; M75.21 Bicipital tendinitis, right shoulder; M75.41 Impingement syndrome of right shoulder; M75.01 Adhesive capsulitis of right shoulder; Z98.890 Other specified postprocedural states; R29.6 Repeated falls | CPT/HCPCS: 99214 ==

== ENCOUNTER 2020-03-04 08:26 | Outpatient (CLI) | payer MEDICARE, OTHER, SELFPAY ==
[2020-03-04 12:29] LABS: Anion Gap 11.1 mmol/L (3-11); BUN 22 mg/dL (7-18); CO2 25.9 mmol/L (21.0-32.0); CREATININE 1.35 mg/dL (0.70-1.30); Calcium 9.7 mg/dL (8.5-10.1); Chloride 101 mmol/L (98-107); Estimated GFR 53.04 (mL/min/1.73m2); Glucose 230 mg/dL (74-106); Potassium 4.3 mmol/L (3.5-5.1); Sodium 138 mmol/L (136-145)
[2020-03-04 12:45] LABS: GGT 399 U/L (15-85)
== END 2020-03-04 08:46 ==
PROVIDERS: PCP Family Medicine; Referring Provider Family Medicine; Visit Provider Family Medicine
DX: E87.1 Hypo-osmolality and hyponatremia (principal); K74.60 Unspecified cirrhosis of liver
CPT/HCPCS: 36415; 80048; 82977

== ENCOUNTER 2020-03-24 02:31 | Outpatient (CLI) | payer MEDICARE, OTHER, SELFPAY ==
[2020-03-25 21:06] LABS: COVID-19 RT-PCR Result NEGATIVE (Negative)
== END 2020-03-24 02:51 ==
PROVIDERS: PCP Family Medicine; Visit Provider Student in an Organized Health Care Education/Training Program
DX: Z11.59 Encounter for screening for other viral diseases (principal); Z01.818 Encounter for other preprocedural examination
CPT/HCPCS: U0003

== ENCOUNTER 2020-03-27 08:49 | Day surgery (SDC) | payer MEDICARE, OTHER, SELFPAY ==
[2020-03-27] VITALS (8 sets, daily range): BP systolic 108–122; BP diastolic 48–69; PULSE 66–71; RESP 13–25; TEMP 36–36.3; O2SAT 94–98
[2020-03-27] MEDS: Lactated Ringers 1,000 ML 100 ML IV (09:51)
[2020-03-27] MEDS: EPINEPHrine 30 MG/30 ML VIAL (12:09)
[2020-03-27] MEDS: ceFAZolin 3,000 MG in Normal Saline 100 ML 200 MG IVPB (12:09)
--- NOTE | 2020-03-27 13:48 | PDOC.DSDIS_ITS ---
Discharge Plan Disposition Patient Disposition: HOME Condition: Stable Discharge Details Reason For Visit: Right shoulder surgery Attending Provider: Piter Farmer Primary Care Provider: Naga Keys Home Meds and New Rx's Prescriptions: New celecoxib 200 mg capsule 200 mg PO DAILY PRN (Reason: pain) Qty: 90 RF: 0 aspirin 81 mg tablet,delayed release (DR/EC) 81 mg PO DAILY 14 Days Qty: 14 RF: 0 tramadol 50 mg Tablet 50 mg PO Q8H PRN PRN (Reason: severe pain) Qty: 12 RF: 0 ondansetron 4 mg tablet,disintegrating 4 mg PO Q6H PRN (Reason: nausea or vomiting) Qty: 5 RF: 0 Continued (DME) Comfort EZ Pen [place] 33 gauge x 3/16 needle See Rx Instructions .ROUTE .MEDSUPPLY Qty: 550 RF: 3 ondansetron HCl 4 mg tablet 4 mg PO Q8H PRN (Reason: nausea and vomiting) Qty: 20 RF: 1 meclizine 12.5 mg tablet 12.5 mg PO TID PRN (Reason: dizziness) Qty: 90 RF: 3 triamcinolone acetonide 0.1 % cream 1 applic Topical BID PRN (Reason: ankle rash) Qty: 45 RF: 1 irbesartan [Avapro] 150 mg tablet 150 mg PO DAILY Qty: 90 RF: 3 pantoprazole 40 mg tablet,delayed release (DR/EC) 40 mg PO BID Qty: 180 RF: 3 mometasone 0.1 % cream 1 applic TP DAILY Qty: 45 RF: 1 atorvastatin 40 mg tablet 40 mg PO DAILY Qty: 90 RF: 4 Jardiance 25 mg tablet 25 mg PO QAM Qty: 90 RF: 3 propranolol [Inderal LA] 60 mg capsule,extended release 24 hr 60 mg PO DAILY Qty: 90 RF: 3 Trulicity 1.5 mg/0.5 mL pen injector 1.5 mg subcut weekly Qty: 6 RF: 3 celecoxib 200 mg capsule 200 mg PO DAILY PRN (Reason: shoulder pain) Qty: 90 RF: 2 acetaminophen 500 MG tablet 2 tab PO PRN RF: 0 multivitamin 1 EACH capsule 1 ea PO DAILY RF: 0 olopatadine [Pataday] 2.5 ML drops 1 drp Ophthalmic DAILY RF: 0 quinine sulfate [Qualaquin] 324 MG capsule 1 tab PO HS PRNQty: 90 RF: 3 (DME) Accu-Chek Leanne Plus test strp Strip 1 ea Miscellaneous DAILY Qty: 260 RF: 4 (DME) Dexcom G6 Publicity Consultant Misc See Rx Instructions .ROUTE .MEDSUPPLY Qty: 1 RF: 0 (DME) Dexcom G6 Sensor Device See Rx Instructions .ROUTE .MEDSUPPLY Qty: 3 RF: 11 (DME) Dexcom G6 Transmitter Device See Rx Instructions .ROUTE .MEDSUPPLY Qty: 1 RF: 0 fluticasone propionate 50 mcg/actuation spray,suspension 2 spray NS DAILY Qty: 9.9 RF: 2 furosemide [Lasix] 20 mg tablet 20 - 40 mg PO DAILY Qty: 180 RF: 3 montelukast [Singulair] 10 mg tablet 10 mg PO DAILY Qty: 30 RF: 11 insulin lispro [Humalog KwikPen Insulin] 100 unit/mL insulin pen 40 - 60 unit SC TID Qty: 54 RF: 3 Refresh Plus 30 EA dropperette 1 ea OU QID PRN PRNQty: 1 RF: 0 Toujeo Max U-300 SoloStar 300 unit/mL (3 mL) insulin pen 160 unit SC TID RF: 0 metolazone 2.5 mg tablet 2.5 mg PO USEASDIRECTD RF: 0 Discharge Instructions Additional Instructions: Surgery: Shoulder arthroscopy with distal clavicle excision, revision extensive debridement, subacromial decompression, and manipulation under anesthesia Activity: You should gradually increase range of motion motion and use of your shoulder. Please perform daily stretching exercises right away. You may use your shoulder for all regular activities. Avoid heavy lifting, reaching overhead, and lifting away from body for approximately 6 to 8 weeks. You may use the sling whenever you are out of the house for a few weeks. You may have to adjust the abduction pillow or remove it for comfort. At home it is best to remove the sling and rest the arm on a pillow at your side or support the operative side with your other hand. You may allow the arm to dangle at your side. A physical therapy prescription will be sent electronically to start as planned next week. Prescriptions: Aspirin 81 mg take 1 daily to prevent a blood clot for 2 weeks Celecoxib (Celebrex) 200 mg take 1 every 24 hours as needed for moderate pain Tramadol 50 mg take 1 every 8 hours as needed for severe pain You may use [id number] Tylenol (acetaminophen) as needed for mild pain. These pain medications may be taken all at once or in different combinations as needed. Ondansetron (Zofran) 4 mg take 1 orally dissolving tablet every 6 hours as needed for nausea or vomiting Also, recommend Colace (docusate) as a stool softener as surgery and pain medicine cause constipation. Dressings: Remove shoulder bandage after 3 days. Leave the sticky Steri-Strips in place until they fall off or remove them after you shower. Cover the incisions with Band-Aids or leave them open to air. Follow-up: 10-[address] Farmer You may take off the leg compression stockings this evening at home. You may also leave them on a few days longer if you have a history of leg swelling or edema. Let us know right away if you develop any redness, drainage, fevers, chest pain, or trouble breathing. Do not drink alcohol or drive for at least 24 hours after anesthesia. Please call the office during business hours with any questions or concerns. Referrals: Piter Farmer MD [ [facility] STAFF PHYSICIAN] - Discharge Orders Discharge Orders: Discharge Order (Routine); Ordered 03/27/20 Ordered By: Piter Farmer DS: Diagnosis Discharge Diagnosis (1) Arthritis of right acromioclavicular joint: Status: Acute (2) Bursitis of right shoulder: Status: Acute (3) Biceps tendinitis of right shoulder: Status: Acute (4) Impingement syndrome of right shoulder: Status: Acute (5) Adhesive capsulitis of right shoulder: Status: Acute
--- NOTE | 2020-03-27 13:57 | W.PM.OP ---
Date of service: 03/27/20 Time of Service: 12:26 Operative Note Operative Note DATE OF PROCEDURE: 03/27/20 PRE-OP DIAGNOSIS: Right: 1. AC Joint Arthritis 2. LHB tendinopathy 3. Bursitis 4. Impingement 5. Adhesive capsulitis POST-OP DIAGNOSIS: same PROCEDURE: Right: 1. Arthroscopic distal clavicle excision, CPT# 94366. This involved arthroscopically exposing the underside of the acromioclavicular joint, smoothing out bone spurs, and using a nicola to remove approximately 5 mm of the distal clavicle so there was no bone left engaging the acromion. 2. Revision extensive debridement, CPT# 20257. This involved using arthroscopic hand instruments, power instruments, and radiofrequency instruments to release to release anterior and posterior capsular contracture and free the subscapularis from scar adhesion to capsule, debride areas of labral fraying, synovitis, minimal articular rotator cuff undersurface fraying, and chondromalacia about humeral head within the glenohumeral joint anteriorly, superiorly and posteriorly. 3. Revision subacromial decompression with partial acromioplasty, CPT# 53662. This involved using arthroscopic power instruments and a radiofrequency wand to complete a bursectomy and remove bone spurs on the undersurface of the acromion. 4. Shoulder manipulation under anesthesia, CPT #24741. Preoperative range of motion as expected was found to be quite stiff globally. Presurgical gentle guided manipulation anesthesia was quite successful in releasing contracture and restoring near full range of motion all planes. The certified nursing assistant instructor was medically required in order to help assist in techniques above, which require positioning the arm, holding the arthroscope, and manipulating multiple instruments and sutures at the same time. This cannot be done without the help of an experienced certified nursing assistant instructor. SURGEON: Piter Farmer CONSTRUCTION EQUIPMENT OPERATOR: Pal Castillo ANESTHESIA: GETA and regional ESTIMATED BLOOD LOSS: 10 PATHOLOGY: none sent COMPLICATIONS: None Patient was transported to: PACU Patient's condition: stable Implants: None Indications: The patient was diagnosed with the above conditions and appropriately indicated for surgical intervention. Please see complete medical record for details. Findings: Exam under anesthesia: Limited range of motion forward elevation 90 degrees, external rotation 30 degrees, internal rotation 45 degrees that was quite successfully released with manipulation and guided into near full motion and ranged repeatedly to complete release achieving forward elevation past 145 degrees, external rotation past 60 degrees, and internal rotation past 60 degrees. Glenohumeral joint: Profound hemorrhagic synovitis, capsular contracture and thickening anteriorly superiorly and posteriorly. Intact subscapularis repair. Subscapularis tendon scarred and adhesed to anterior capsule. Long head of the biceps tendon not visualized intra-articularly. Labral rim and fraying injection anteriorly superiorly and posteriorly. Moderate generalized chondromalacia with isolated cartilage fraying but no full-thickness cartilage lesion. Partial articular undersurface supraspinatus anterior fraying without significant tear. Subacromial space: Only mild residual bursitis posteriorly and laterally. Only mild residual subacromial bone spur more anteriorly and medially. Significant impinging distal clavicle inferiorly on rotator cuff and acromion. Fraying bursal side supraspinatus involving just a millimeter or 2 of tissue in a generalized region without any brianne tear or loss of trampoline effect. Procedure Description: In the operating room, general anesthesia was induced. Bilateral shoulders were examined. Manipulation under anesthesia performed as detailed above with excellent success restoring range of motion. The patient was positioned in the beachchair position. All bony prominences were well-padded. Preoperative antibiotics were administered. The shoulder was prepped and draped in the usual sterile fashion. The correct patient, procedure, and side of the procedure were all verified prior to incision. Starting through the posterior portal a standard complete diagnostic arthroscopy was performed of the glenohumeral joint including inspection of the long head of the biceps, anterior and superior labrum, subscapularis tendon, supraspinatus and infraspinatus tendons, and axillary recess. The glenoid and humeral head cartilage as well as the posterior labrum were inspected from an anterior viewing portal. Significant findings and debridement interventions noted above. Starting through the posterior portal, the arthroscope was directed into the subacromial space. A lateral 50 yard line lateral portal was created. A combination of power instruments and a radiofrequency ablator were used to debride bursitis anteriorly, posteriorly, and laterally as well as expose and smooth bone spurring on the undersurface of the acromion. The coracoacromial ligament was partially released. The bursectomy was completed viewing laterally and working from posteriorly and the rotator cuff was thoroughly inspected with findings noted above. The anterior portal was redirected towards the undersurface of the AC joint. A shaver and electrocautery device were used to clear soft tissue from the undersurface of the AC joint. A nicola was then inserted and used to remove the distalmost 5 mm of the distal clavicle. Care was taken to alternate between working through the anterior portal and viewing through the anterior portal to ensure that proper amount of bone was removed and there was no engaging bone left behind especially superiorly. The shoulder was drained of arthroscopic fluid. All portal sites were copiously irrigated. These incisions were closed using 3-0 Monocryl in a buried fashion, covered with Mastisol, Steri-Strips, Xeroform, dry gauze, and ABDs. The dressings were covered and secured with Medipore tape. The operative extremity was placed into a sling for immobilization. The patient awoke from anesthesia without complication and was transferred to the recovery room in a stable condition.
== END 2020-03-27 15:50 | disposition home or self-care (01) ==
PROVIDERS: PCP Family Medicine; Visit Provider Student in an Organized Health Care Education/Training Program
PROC: (CPT 29805; principal; 2020-03-27 10:45)
DX: M19.011 Primary osteoarthritis, right shoulder (principal); M75.51 Bursitis of right shoulder; M75.21 Bicipital tendinitis, right shoulder; M75.41 Impingement syndrome of right shoulder; M75.01 Adhesive capsulitis of right shoulder; M65.811 Other synovitis and tenosynovitis, right shoulder; M24.511 Contracture, right shoulder; M94.211 Chondromalacia, right shoulder; G89.18 Other acute postprocedural pain; I10 Essential (primary) hypertension; J44.9 Chronic obstructive pulmonary disease, unspecified; G47.33 Obstructive sleep apnea (adult) (pediatric); E11.65 Type 2 diabetes mellitus with hyperglycemia; E11.319 Type 2 diabetes mellitus with unspecified diabetic retinopathy without macular edema; Z79.4 Long term (current) use of insulin; E11.43 Type 2 diabetes mellitus with diabetic autonomic (poly)neuropathy; E66.01 Morbid (severe) obesity due to excess calories; Z68.41 Body mass index [BMI] 40.0-44.9, adult
CPT/HCPCS: 29823; 29826; 29824; 23700; 76942; J0690; J1100; J1885; J2250; J2405; J2704; L3650

== ENCOUNTER → 2020-04-09 10:29 | Outpatient (BNVA) | payer MEDICARE, OTHER, SELFPAY | PROVIDERS: PCP Family Medicine; Referring Provider Family Medicine; Visit Provider Student in an Organized Health Care Education/Training Program | DX: Z47.89 Encounter for other orthopedic aftercare (principal); M75.01 Adhesive capsulitis of right shoulder; M19.011 Primary osteoarthritis, right shoulder; M75.51 Bursitis of right shoulder; M75.21 Bicipital tendinitis, right shoulder; M75.41 Impingement syndrome of right shoulder ==

== ENCOUNTER 2020-05-12 02:28 | Outpatient (CLI) | payer MEDICARE, OTHER, SELFPAY ==
[2020-05-12 13:13] LABS: Hemoglobin A1C 6.8 % (<5.7)
== END 2020-05-12 02:48 ==
PROVIDERS: PCP Family Medicine; Visit Provider Family Medicine
DX: R73.9 Hyperglycemia, unspecified (principal)
CPT/HCPCS: 36415; 83036

== ENCOUNTER → 2020-06-04 10:59 | Outpatient (BNVA) | payer MEDICARE, OTHER, SELFPAY | PROVIDERS: PCP Family Medicine; Referring Provider Family Medicine; Visit Provider Student in an Organized Health Care Education/Training Program | DX: Z47.89 Encounter for other orthopedic aftercare (principal); M75.01 Adhesive capsulitis of right shoulder; Z98.890 Other specified postprocedural states; M19.011 Primary osteoarthritis, right shoulder; M75.51 Bursitis of right shoulder; M75.21 Bicipital tendinitis, right shoulder; M75.41 Impingement syndrome of right shoulder ==

== ENCOUNTER → 2020-07-11 09:02 | Outpatient (BNVA) | payer MEDICARE, OTHER, SELFPAY | PROVIDERS: PCP Family Medicine; Referring Provider Family Medicine; Visit Provider Physical Therapy Assistant | DX: K21.9 Gastro-esophageal reflux disease without esophagitis (principal); R13.10 Dysphagia, unspecified; Z86.010 Personal history of colon polyps | CPT/HCPCS: 99214 ==

== ENCOUNTER 2020-07-23 02:35 | Outpatient (CLI) | payer MEDICARE, OTHER, SELFPAY ==
[2020-07-23 10:38] LABS: Source Nasal/Nares
[2020-07-23 14:53] LABS: COVID-19 PCR Negative (Negative)
== END 2020-07-23 02:36 | disposition home or self-care (01) ==
LOC: LBO 02:35
PROVIDERS: PCP Family Medicine; Visit Provider Surgery
DX: Z20.822 Contact with and (suspected) exposure to COVID-19 (principal); Z01.818 Encounter for other preprocedural examination
CPT/HCPCS: 87635

== ENCOUNTER 2020-07-25 06:19 | Day surgery (SDC) | payer MEDICARE, OTHER, SELFPAY ==
[2020-07-25 06:37] VITALS: BP 121/56; PULSE 63; RESP 16; TEMP 36; O2SAT 98
[2020-07-25] MEDS: Lactated Ringers 1,000 ML 80 ML IV (07:08)
--- NOTE | 2020-07-25 07:46 | BOWEL_PTH ---
PATIENT: Nick Beebe LOC: [facility] U#:[id number] AGE/SX: 64/M ROOM: RE07/25/[address]: Rajwinder Oliveira : 1955 BED: DIS: 07/25/2020 SPEC #: [id number] RECD: 07/25/20 12:40 STATUS: HERSON RE #: [id number] NATALIO: 07/25/20 07:[address]: Rajwinder Oliveira DEPT: Surgical Specimen RECD BY: Kenya Justin ENTERED: 07/25/20 12:46 SP TYPE: Bowel OTHR DR: Naga Keys MD Tissues: 1 - BIOPSY BOWEL 2 - BIOPSY BOWEL 3 - STOMACH BIOPSY 4 - STOMACH BIOPSY 5 - STOMACH BIOPSY 6 - ESOPHAGUS BIOPSY 7 - ESOPHAGUS BIOPSY 8 - BIOPSY BOWEL 9 - BIOPSY BOWEL 10 - BIOPSY BOWEL 11 - BIOPSY BOWEL 12 - BIOPSY BOWEL 13 - BIOPSY BOWEL Procedures: GROSS AND MICRO LEVEL 4 Comments: [id number]
--- NOTE | 2020-07-25 08:51 | ENDO_ITS ---
Date of service: 07/25/20 Time of Service: 08:51 Endoscopy Report DATE OF PROCEDURE: 07/25/20 PRE-OP DIAGNOSIS: dysphagia POST-OP DIAGNOSIS: other (gastritis/hiatal hernia/small hiatal hernia ) SURGEON: Rajwinder Oliveira ANESTHESIA TYPE: General:No Airway ESTIMATED BLOOD LOSS: 1 PATHOLOGY: other COMPLICATIONS: None DISPOSITION: PACU PROCEDURE DESCRIPTION: After informed consent was obtained the patient was take to the procedure room and placed in a supine position. Monitors were applied and a time out was done. The patients name, date of , procedure type, allergies to medications and metal in their body was reviewed. A bite block was placed and the patient was sedated. Once sedated and comfortable the gastroscope was advanced through the oropharynx which was grossly normal into the esophagus. The proximal and mid-esophagus were nl. In the distal esophagus there was no varices or stricture. he does appear to have a small diverticulum adjacent to the GE junction. He does have a small hiatal hernia. There is irregularity to the mucosa that does appear that he could have either esophagitis or an early Moser's. The scope was advanced into the stomach and through the pylorus into the 3rd portion of the duodenum. The duodenum was noted to be Biopsies were done -all specimens retrieved and no bleeding is noted. the scope was retracted back into the stomach and biopsies were done to rule out H. pylori. There were no ulcers. From the antrum and the lower one third of the stomach is covered and a moderate gastritis in a striped pattern. The mucosa is erythematous and very friable. Biopsies are taken of the antrum the greater curvature and the cardia portion of the stomach. There are no polyps. There are no masses. The scope was retroflexed. The cardia and fundus were noted to be normal. There small a hiatal hernia noted. The scope was retracted back into the esophagus and biopsies were done of the GE junction to rule out Moser's. The Z line was irregular. The GE junction was at 38 cm. The scope was removed and the patient was woken up and taken back to [facility] in stable condition.
--- NOTE | 2020-07-25 08:56 | W.COLOREPORT ---
Date of service: 07/25/20 Time of Service: 08:56 Colonoscopy Report Date of procedure: 07/25/20 Pre-op diagnosis general: hx of polyps Post-op diagnosis procedure note: other (polys and diveritucla ) Procedure: polypectomy. x1- hot snare mult- cold polyectomy Surgeon: Rajwinder Oliveira Anesthesia Type: General:No Airway Estimated blood loss (mL): 2 Pathology: other Complications: None Disposition: same day Prep: Miralax/Dulcolax Retraction Time: 30 mins Procedure Description: After informed consent was obtained the patient was taken to the procedure room and placed in a left decubitous position. Monitors were applied and a time out was done. The patients name, date of , procedure, allergies to medications and metal in their body was reviewed. The patient was then sedated. Once sedated and comfortable a rectal exam was done. External exam was normal. Internal exam revealed a normal sphincter tone and no palpable masses. The scope was then introduced and retrofelexed. No internal hemorrhoids were identified. The scope was then advanced to the cecum w/out difficulty. The TI and appendiceal orifice were identified. The prep was adequate. The scope was then slowly retracted over 30 minutes back into the rectum. The cecum was very red and friable. A biopsy of this was taken. Polyps are removed at 80x2, 60 cm, 30 cm, and the rectum. These are all less than 5 mm and removed w/ a cold biting forcep in a single bite. 1 polyp at 30 cm is removed with a hot snare. It is approximately 1 cm. All specimens are retrieved and no bleeding is noted. He does have multiple large mouthed diverticuli. Most of these are confined to the sigmoid colon-moderate disease. However the diverticula do carry all the way to the cecum. There is no signs of active bleeding or infection. The scope was removed and the patient was woken up and taken back to Same day surgery in stable condition. The patient tolerated the procedure well and there were no immediate complications. Follow up: The patient should follow up in 3-5 years-path pending, unless they develop changes in bowel habits or other new gastrointestinal complaints.
[2020-07-25 09:15] VITALS: BP 153/98; PULSE 66; RESP 16; TEMP 36.5; O2SAT 97
--- NOTE | 2020-07-25 09:21 | W.PM.DSUDISC ---
Discharge Plan Disposition Patient Disposition: HOME Condition: Good Discharge Details Reason For Visit: egd and colon scope Attending Provider: Rajwinder Oliveira Primary Care Provider: Naga Keys Home Meds and New Rx's Prescriptions: Continued (DME) Comfort EZ Pen [place] 33 gauge x 3/16 needle See Rx Instructions .ROUTE .MEDSUPPLY Qty: 550 RF: 3 meclizine 12.5 mg tablet 12.5 mg PO TID PRN (Reason: dizziness) Qty: 90 RF: 3 celecoxib 200 mg capsule 200 mg PO DAILY PRN (Reason: pain) Qty: 30 RF: 0 bisacodyl [Dulcolax (bisacodyl)] 5 mg tablet,delayed release (DR/EC) 5 mg PO ONCE Qty: 4 RF: 0 triamcinolone acetonide 0.1 % cream 1 applic Topical BID PRN (Reason: ankle rash) Qty: 45 RF: 1 propranolol [Inderal LA] 60 mg capsule,extended release 24 hr 60 mg PO DAILY Qty: 90 RF: 3 Trulicity 1.5 mg/0.5 mL pen injector 1.5 mg subcut weekly Qty: 6 RF: 3 acetaminophen 500 MG tablet 2 tab PO PRN RF: 0 multivitamin 1 EACH capsule 1 ea PO DAILY RF: 0 olopatadine [Pataday] 2.5 ML drops 1 drp Ophthalmic DAILY RF: 0 quinine sulfate [Qualaquin] 324 MG capsule 1 tab PO HS PRNQty: 90 RF: 3 (DME) Accu-Chek Leanne Plus test strp Strip 1 ea Miscellaneous DAILY Qty: 260 RF: 4 (DME) Dexcom G6 Dental Hygiene Instructor Misc See Rx Instructions .ROUTE .MEDSUPPLY Qty: 1 RF: 0 (DME) Dexcom G6 Sensor Device See Rx Instructions .ROUTE .MEDSUPPLY Qty: 3 RF: 11 (DME) Dexcom G6 Transmitter Device See Rx Instructions .ROUTE .MEDSUPPLY Qty: 1 RF: 0 montelukast [Singulair] 10 mg tablet 10 mg PO DAILY Qty: 30 RF: 11 insulin lispro [Humalog KwikPen Insulin] 100 unit/mL insulin pen 40 - 60 unit SC TID Qty: 54 RF: 3 irbesartan [Avapro] 150 mg tablet 150 mg PO DAILY Qty: 90 RF: 3 Toujeo Max U-300 SoloStar 300 unit/mL (3 mL) insulin pen 160 unit SC TID Qty: 435 RF: 3 pantoprazole 40 mg tablet,delayed release (DR/EC) 40 mg PO BID Qty: 180 RF: 3 Jardiance 25 mg tablet 25 mg PO QAM Qty: 90 RF: 3 atorvastatin 40 mg tablet 40 mg PO DAILY Qty: 90 RF: 4 Refresh Plus 30 EA dropperette 1 ea OU QID PRN PRNQty: 1 RF: 0 furosemide [Lasix] 20 mg tablet 40 mg PO DAILY RF: 0 fluticasone propionate 50 mcg/actuation spray,suspension 2 spray NS DAILY PRNRF: 0 mometasone 0.1 % cream 1 applic TP DAILY PRNRF: 0 Discontinued polyethylene glycol 3350 17 gram/dose powder 238 g PO ONCE Qty: 238 RF: 0 Discharge Instructions Additional Instructions: Findings:gastritis/hiatal hernia: Protonix daily- Rx palced Continue with lifestyle modifications: no alcohol, tobacco products, Aspirin or NSAID's (ibuprofen, Motrin, Naprosyn, aleve, etc). Try to limit: soda pop/any carbonated beverages, caffeine (including tea & chocolate), and acidic foods, (tomatoes, citrus, onions, peppermints) spicy or fried/fatty foods. Do not lie down for 30 minutes after eating, and do not eat 2 hours prior to bedtime. Avoid wearing tight fitting clothing/ belts Colon : x6 polyps moderate diverticular Dx -no ASA/NSADI's for 5 days. Follow up: Repeat C scope in 3-5yrs depending on pathology. My office will send you a letter in 3 weeks time regarding the type of polyps and when to repeat the scope. Please call if you develop: fevers >101.5 Nausea or Vomiting Abdominal pain that is not transient DAY SURGERY UNIT POST COLONOSCOPY INSTRUCTIONS 1. Because there will be medication in your system for the next 24 hours, you may feel a little sleepy. Your coordination will be affected. Therefore: a. Do not drive or operate dangerous equipment for 24 hours. b. Do not drink alcohol beverages for 24 hours (not even beer). c. Plan to go home and rest for the day. 2. Generally there are no restrictions on your activity after a day or so has gone by, but you may feel a bit fatigued for a few days. 3 After you arrive home you may have a light meal and return to a normal diet as you can tolerate it without feeling sick to your stomach. 4. After surgery, you may feel pain or discomfort. This should be only transient, but if it persists please contact your doctor. 5. If there are any questions regarding the findings of your procedure, please feel free to contact your doctor. 6. If you are unable to contact your doctor with a problem, contact the hospital at [phone]. 7. Continue all your regular medications unless directed otherwise. I understand the above instructions and have no questions. Signature of Patient or Responsible Adult Escort Date/Time Name of Responsible Adult Escort Signature of Nurse Date/Time DIVERTICULAR DISEASE OVERVIEW ? A diverticulum is a pouch-like structure that can form through points of weakness in the muscular wall of the colon (ie, at points where blood vessels pass through the wall). Diverticulosis affects men and women equally. The risk of diverticular disease increases with age. It occurs throughout the world but is seen more commonly in developed countries. WHAT IS DIVERTICULAR DISEASE? Diverticulosis ? Diverticulosis merely describes the presence of diverticula. Diverticulosis is often found during a test done for other reasons, such as flexible sigmoidoscopy, colonoscopy, or barium enema. Most people with diverticulosis have no symptoms and will remain symptom free for the rest of their lives. A person with diverticulosis may have diverticulitis, or diverticular bleeding. Diverticulitis ? Inflammation of a diverticulum (diverticulitis) occurs when there is thinning and breakdown of the diverticular wall. This may be caused by increased pressure within the colon or by hardened particles of stool, which can become lodged within the diverticulum. The symptoms of diverticulitis depend upon the degree of inflammation present. The most common symptom is pain in the left lower abdomen. Other symptoms can include nausea and vomiting, constipation, diarrhea, and urinary symptoms such as pain or burning when urinating or the frequent need to urinate. Diverticulitis is divided into simple and complicated forms. ?Simple diverticulitis, which accounts for 75 percent of cases, is not associated with complications and typically responds to medical treatment without surgery. ?Complicated diverticulitis occurs in 25 percent of cases and usually requires surgery. Complications associated with diverticulitis can include the following: ?Abscess ? a localized collection of pus ?Fistula ? an abnormal tract between two areas that are not normally connected (eg, bowel and bladder) ?Obstruction ? a blockage of the colon ?Peritonitis ? infection involving the space around the abdominal organ ?Sepsis ? overwhelming body-wide infection that can lead to failure of multiple organs Diverticular bleeding ? Diverticular bleeding occurs when a small artery located within a diverticulum is eroded and bleeds into the colon. Diverticular bleeding usually causes painless bleeding from the rectum. In approximately 50 percent of cases, the person will see maroon or bright red blood with bowel movements. Is bleeding with a bowel movement normal? ? It is not normal to see blood in a bowel movement; this can be a sign of several conditions, most of which are not serious (eg, hemorrhoids) but some of which are serious and require immediate treatment. Anyone who sees blood after a bowel movement should consult with their healthcare provider to determine if further testing or evaluation is needed. DIVERTICULOSIS AND DIVERTICULITIS DIAGNOSIS ? Diverticulosis is often found during tests performed for other reasons. ?Barium enema ? This is an x-ray study that uses barium in an enema to view the outline of the lower intestinal tract. This is an older test and has been largely replaced by computed tomography (CT) scan. ?Flexible sigmoidoscopy ? This is an examination of the inside of the sigmoid colon with a thin, flexible tube that contains a camera. ?Colonoscopy ? This is an examination of the inside of the entire colon. ?CT scan ? A CT scan is often used to diagnose diverticulitis and its complications. If diverticulitis (not just diverticulosis) is suspected, the above three tests should not be used because of the risk of perforation. TREATMENT Diverticulosis ? People with diverticulosis who do not have symptoms do not require treatment. However, most clinicians recommend increasing fiber in the diet, which can help to bulk the stools and possibly prevent the development of new diverticula, diverticulitis, or diverticular bleeding. Fiber is not proven to prevent these conditions in all patients but may help to control recurrent episodes in some. Increase fiber ? Fruits and vegetables are a good source of fiber. Fiber content of packaged foods can be calculated by reading the nutrition label. Seeds and nuts ? Patients with diverticular disease have historically been advised to avoid whole pieces of fiber (such as seeds, corn, and nuts) because of concern that these foods could cause an episode of diverticulitis. However, this belief is completely unproven. We do not suggest that patients with diverticulosis avoid seeds, corn, or nuts. Diverticulitis ? Treatment of diverticulitis depends upon how severe your symptoms are. Home treatment ? If you have mild symptoms of diverticulitis (mild abdominal pain, usually left lower abdomen), you can be treated at home with a clear liquid diet and oral antibiotics. However, if you develop one or more of the following signs or symptoms, you should seek immediate medical attention: ?Temperature >100.1?F (38?C) ?Worsening or severe abdominal pain ?An inability to tolerate fluids Hospital treatment ? If you have moderate to severe symptoms, you may be hospitalized for treatment. During this time, you are not allowed to eat or drink; antibiotics and fluids are given into a vein. If you develop an abscess of the colon, you may require drainage of the abscess (usually performed by placing a drainage tube across the abdominal wall) or by surgically opening the affected area. Surgery ? If you develop a generalized infection in the abdomen (peritonitis), you will usually require an emergency operation. A two-part operation may be necessary in some cases. ?The first operation involves removal of the diseased colon and creation of a colostomy. A colostomy is an opening between the colon and the skin, where a bag is attached to collect waste from the intestine. The lower end of the colon is temporarily sewed closed to allow it to heal. ?Approximately three to six months later, a second operation is performed to reconnect the two parts of the colon and close the opening in the skin. You are then able to empty your bowels through the rectum. Sometimes patients require up to a year to recover from the first operation, depending on how sick they were. In non-emergency situations, the diseased area of the colon can be removed and the two ends of the colon can be reconnected in one operation, without the need for a colostomy. Surgery versus medical therapy ? An operation to remove the diseased area of the colon may be necessary if you do not improve with medical therapy. After an episode of uncomplicated diverticulitis, elective surgery is generally not required as the risk of another attack or requiring emergency surgery is low. However, patients with persistent symptoms attributable to diverticulitis, a history of complicated diverticulitis, or a compromised immune system should be evaluated for possible surgery to prevent another attack. In such patients, another attack has been associated with a higher risk of complications or . Of course, the decision will also depend in part upon your other medical conditions and ability to undergo surgery. In many cases, an elective operation can be performed laparoscopically, using small incisions, rather than the typical vertical (up and down) abdominal incision. Laparoscopic surgery usually allows you to recover more quickly and shortens the hospital stay. After diverticulitis resolves ? After an episode of diverticulitis resolves, if you have not had a recent colonoscopy, the entire length of the colon should be evaluated to determine the extent of disease and to rule out the presence of abnormal lesions such as polyps or cancer. Recommended tests include colonoscopy, barium enema and sigmoidoscopy, or CT colonography. Diverticular bleeding ? Most cases of diverticular bleeding resolve on their own. However, some people will need further testing or treatment to stop bleeding, which may include a colonoscopy, angiography (a treatment that blocks off the bleeding artery), bleeding scan, or surgery. DIVERTICULAR DISEASE PROGNOSIS Diverticulosis ? Over time, diverticulosis may cause no problems or it may cause episodes of bleeding and/or diverticulitis. Approximately 15 to 25 percent of people with diverticulosis will develop diverticulitis, while 5 to 15 percent will develop diverticular bleeding. Diverticulitis ? Approximately 85 percent of people with uncomplicated diverticulitis will respond to medical treatment, while approximately 15 percent of patients will need an operation. After successful treatment for a first attack of diverticulitis, one-third of patients will remain asymptomatic, one-third will have episodic cramps without diverticulitis, and one-third will go on to have a second attack of diverticulitis. The prognosis tends to remain similar following a second attack of diverticulitis. Only 10 percent of people remain symptom-free after a second attack. Subsequent attacks tend to be of similar severity, not increasing in severity as previously believed. High Fiber Diet What is Dietary Fiber? All fiber comes from plants, bushes, manisha or trees. Of course, the ones that we eat provide us with fruits, vegetables and grains. There are many different types of fiber but the three that are most important to the health of the body are: Insoluble Fiber This fiber does not dissolve in water, nor is it fermented by the bacteria residing in the colon. Rather, it retains water and in so doing, helps to promote a larger, bulkier and more regular bowel activity. This, in turn, may be important in preventing disorder such as diverticulosis and hemorrhoids, and in sweeping out certain toxins and cancer causing carcinogens. Sources of insoluble fiber are: ? whole grain wheat and other whole grains ? corn bran, including popcorn, unflavored and unsweetened ? nuts and seeds ? potatoes and the skins from most fruits from trees such as apples, bananas and avocados ? many green vegetables such as green beans, zucchini, celery and cauliflower ? some fruit plants such as tomatoes and kiwi Soluble Fiber These fibers are fermented or used by the colon bacteria as a food source or nourishment. When these good bacteria grow and thrive, many health benefits occur in both the colon and the body. Soluble fiber is present in some degree in most edible plant foods, but the ones with the most soluble fiber include: ? legumes such as peas and most beans, including soybeans ? oats, rye and barley ? many fruits such as berries, plums, apples bananas and pears ? certain vegetables such as broccoli and carrots ? most root vegetables ? psyllium husk supplement products Prebiotic Soluble Fiber These are relatively newly discovered soluble plant fibers. The technical name for this fiber is inulin or fructan. When these soluble fibers are fermented by the good colon bacteria, some further significant health benefits have been shown to occur by research in many medical centers. These soluble prebiotic fibers occur in significant amounts in: ? asparagus ? yams ? onions ? garlic ? bananas ? leeks ? agave ? chicory and other root vegetables such as [place] artichokes ? wheat, rye and barley (smaller amounts) Benefits of a High Fiber Diet The health benefits of a high fiber diet, consumed on a regular basis and reaching recommended amounts (below), are now fairly well-defined. There are some additional benefits in the early research stage with the prebiotic soluble fibers. What is now known regarding a high fiber diet include: Bowel Regularity A high fiber diet promotes regularity with a softer, bulkier and regular stool pattern. This decreases the chance of hemorrhoids, diverticulosis and perhaps colon cancer. Cholesterol and Reduced Triglycerides The soluble fibers are the ones that will reduce cholesterol levels when used on a regular basis. Psyllium husk and prebiotic soluble fiber will also reduce cholesterol. They may also reduce the incidence of coronary heart disease. Oats, flax seeds and legumes or beans are the recommended fibers. Colon Polyps and Cancer It is still not certain if a high fiber diet helps prevent colon cancer. Considerable research suggests that this may occur. Certainly it makes sense to increase regularity and so speed the movement of cancer causing carcinogens through the bowel. In addition, reducing a heavy meat diet reduces the bile flow from the liver in a favorable way. This, too, reduces the amount of carcinogens that reach and are manufactured in the colon. Finally, a high fiber diet, including prebiotic soluble fiber, increases the integrity and health of the wall of the colon. The risk of cancer may be reduced. Colon Wall Integrity A high fiber diet changes the bacterial makeup of the colon toward a more favorable balance. For instance, it is known that those people with obesity, diabetes type 2 and inflammatory bowel disease have a predominance of bad bacteria in the colon. This, in turn, may render the bowel wall weak and allow bacteria and, indeed, even toxins to seep through. A high fiber diet with a modest reduction in animal and meat products may return the bacterial makeup to a more positive balance. This, in particular, has been seen when the soluble fiber prebiotics are added to the diet. Blood Sugar Soluble fiber such as in legumes (beans), oats and in prebiotic fibers slows the absorption of blood sugar and so helps regulate the sugar in the blood. Insoluble fiber on a regular basis is associated with reduced risk of type 2 diabetes. Weight Loss High fiber diets are more filling and give a sense of fullness sooner than an animal and meat based diet does. In addition, the soluble prebiotic fibers have been shown to turn off the hunger hormones produced in the wall of the gut and to increase the hormones that give a sense of fullness. Those hormones are made in the wall of the gut. New medical research has shown that the bacterial makeup in the colon in overweight people is abnormal to the extent that they manufacture and absorb almost twice the number of calories through the colon wall as do normals. Prebiotic fibers (below) will help change this hormonal balancein a favorable way. Bacteria and the Function of the Colon The colon finishes the digestive process. Hopefully, the waste products move through in a nice regular manner. Insoluble fibers help this process by retaining water and so producing a bulkier, softer stool, which is easy to pass. The additional role of the colon is to provide a home for an enormous number of micro-organisms, mostly bacteria. Recent research has shown that there are over 1,000 species of bacteria with a total bacterial count ten times the number of cells in the body. These bacteria play a major role in keeping the colon wall itself healthy. In addition, these good bacteria produce a very strong immune system for the body. They significantly increase calcium absorption and bone density. They provide other documented benefits. It is the soluble fibers in the diet that are so effective in stimulating the growth of good colon bacteria. How Much is Enough? The amount of fiber in food is measured in grams. National nutritional authorities recommend the following amounts of dietary fiber daily. Under Age 50 Over Age 50 Men 38 grams 30 grams Women 25 grams 21 grams For a week or so, it is best to tally the amount of fiber you are consuming. Boxed and packaged foods will have the amount of fiber per serving on the nutrition label. Which Fibers and Which Foods are Best? As noted, healthy fiber is only found in plants. The three major categories are whole grains, fruits and vegetables. Whole Grains Wheat, oats, barley, wild or brown rice, amaranth, buckwheat, bulgur, corn, millet, quinoa, rye, sorghum, teff and triticals. By far, wheat, oats and wild or brown rice are most common. Always buy whole grain products. White bread, baked goods and rolls almost always are made from wheat flour. Wheat flour is white because most of the fiber, vitamins and other nutrients have been removed. Try not buy enriched grains. What this means is that simple white flour has had vitamins added to it by the director revenue. The word, enriched, implies a good and healthy product. On the contrary, enriched means that most of the fiber has been removed and a few vitamins added. Fruits Fruits come from trees such as apple and pear or from bushes or manisha. You should eat a wide variety of fruits, preferably with every meal. In many cases, the skin of a fruit such as apple will contain much of the insoluble fiber while the pulp contains most of the soluble fiber. To the extent possible, buy organic fruits as these will have little or no pesticides. Always wash fruit. Vegetables Eat a wide variety of vegetables. They should be a mainstay of lunch and dinners. Frozen vegetables retain as much nutrition and fiber as fresh vegetables. As with fruit, try to buy organic to reduce any residual pesticide ingestion. Wash fresh vegetables thoroughly. Cruciferous vegetables such as broccoli, [place] sprouts and cauliflower contain certain chemicals such as sulforaphane. This substance has very strong anti-cancer properties and should be eaten frequently. Legumes, Beans, Peas and Soybeans These vegetables have plenty of soluble fiber and should be part of a varied vegetable intake. Beans, in particular, contain a certain type of fiber that may lead to harmless gas or bloating. Nuts and Seeds These are rich sources of fiber and are a good substitute for sweets such as candies and baked sweet goods. While nuts and seeds are rich in fiber, they also contain vegetable fat and so can and do add calories. Read the Labels As noted, fresh and frozen foods are usually better. They have good nutrition and few, if any, chemicals added to them. When buying packaged foods and, in particular grains, look for three things: ? The first word on the label should be whole, such as whole wheat or whole grain. ? Check out the calories and the amount of fiber in a serving. ? How many and what other additives or chemicals are added. Fewer is always better. Do you know what each additive does? Some are added not for the benefit of the buyer agent but rather for manufacturers. These could and do include sugar, artificial flavor, chemicals to prevent oxidation and spoilage, emulsifiers to blend the product. You have to be a life enrichment director. Fiber Facts, Nuggets and Pearls ? For breakfast you can easily get the day started well by using a high fiber, whole grain cereal. Check the labels. Add fruit such as blueberries and bananas. If you are an egg eater, use whole wheat or grain toast. Adding wheat germ gives you a good fiber kick. ? Always use whole grain or wheat with rolls and sandwiches. Does your fast food store not have them? Perhaps you look elsewhere. Eating an occasional black bender or veggie burger provides variety. ? Snacks should consist of fruit and/or nuts. While nuts are loaded with fiber, they are an energy rich food, meaning they have a lot of calories in a small packet. ? Fruit juices should contain pulp. Clear juices such as clear orange, pear or apple juice contain little fiber and have a lot of fructose. Prune juice is usually high in fiber. ? Homemade soups ? adding fresh or frozen vegetables to a chicken or vegetable stock is a good way to start homemade soup. ? Salads ? adding cooked and then chilled vegetables provide great flavoring to almost any salad. Remember, a alvarez salad has lots of cooked corn in it. Small slices of apples or oranges and nuts such as chopped walnuts or sliced almonds always adds taste, variety and fiber to almost any salad. ? Fruit ? Try to eat fruit of some type with almost every meal. ? Rethink how you place the various foods on your dinner plate. Reducing the portions of the meat or animal food portion to the side with equal or more portions of vegetables, legumes and fruits portion always allows for more fiber. There was never anything magic about making the meat or animal food portion the main part of the dinner plate. Eating from smaller plates can, over time, trick your mind and rodent exterminator habit of using a dinner plate. Again, there is nothing magic in an 11, 12, or 13 inch dinner plate. Fiber Supplements There are a variety of fiber supplements available on the food or pharmacy shelves. Psyllium This soluble plant fiber has been used in [place] for over 2,000 years. It is a soluble fiber with mucilage in it. This acts to retain a lot of water and also is fermented by colon bacteria. When 7 grams a day are used, it does lower cholesterol. Metamucil in various forms is psyllium. Methyl Cellulose All the cellulose products come from finely ground wood chips which are then treated in a variety of ways such as boiling in acids. Methyl cellulose is an insoluble fiber which does dissolve in water. It is also an emulsifier, meaning it blends oils and water. Citrucel is methyl cellulose (MC). MC may not be appropriate for Crohn?s disease or ulcerative colitis as several medical studies have shown that certain emulsifiers dissolve the mucous lining of the colon in animals prone to Crohn?s disease. This then allows bacteria to invade the underlying tissue. Inulin Inulin is a soluble prebiotic fiber found in many foods and which are fermented mostly in the left side of the colon. It is available in a supplement as generic inulin and in Fiber Choice. Oligofructose FOS These are also prebiotic fibers. They are fermented very quickly in the right side of the colon. Prebiotin This product is a combination of oligofructose, which feeds the bacteria in the right side of the colon and inulin, which does the same in the left side of the colon. There seems to be a benefit for this particular formula based on medical research. Prebiotic Soluble Fiber These may be the healthiest of all the soluble fibers. They grow in many plants and have had a great deal of research done on them in the last 10-15 years. These fibers are found in asparagus, yams and other root vegetables such as chicory, garlic, onion, leeks and in smaller amounts in wheat. This research has shown the following: ? Increase in good and decrease in bad colon bacteria ? Increase calcium absorption and enhanced bone mass ? Enhanced immune system ? Appetite and weight control by changing the hormone appetite signals to the brain ? May decrease colon cancer incidence ? Reduce or correct a leaky colon Eating a wide variety of plant food up to the recommended amount will likely give you enough prebiotic fiber. Supplements such as Prebiotin can be added to the diet. Short Chain Fatty Acids (SCFA) Some rather remarkable research findings have shown that one of the benefits of ingesting a lot of soluble fiber, in particular the prebiotic ones, results in larger amounts of SCFAs in the colon. These SCFAs are made by the good bacteria in the colon such as Bifidobacter and Lactobacillus. These small molecules have been shown to do the following: ? Enhance the health and integrity of the colon wall ? Provide nourishment for the cells that actually line the colon ? Increases the acidity of the colon which is a very real health benefit ? Stabilize blood sugar for diabetics ? Reduce blood cholesterol and triglyceride ? Significantly enhance immunity ? May be a benefit for Crohn?s disease and ulcerative colitis patients Fiber and Gas Everyone has intestinal gas and that is a good thing. It means that bacteria, hopefully the good ones, are thriving. The normal amount of flatus passed each day depends on sex and what is eaten. The normal number of flatus is 10-20 times a day. When the bacteria that make intestinal gases are growing, it also means that other good bacteria are using the same fibers to grow and produce multiple health benefits, including the production of healthy short-chain fatty acids. These substances are produced quietly in the colon and produce many health-related outcomes. Soluble fiber should always be used in a gradual manner. If too much is consumed at any one time, then excess, but harmless, intestinal gas can occur. People with irritable bowel syndrome are particularly prone to bloating and mild cramping. In this instance, soluble fiber in the diet or supplement should be used in small doses and increased gradually. Finally, prebiotic fibers tend to cause the production of short-chain fatty acids which acidify the colon. This, in turn, reduces or stops the growth of bacteria that make the smelly hydrogen sulfide gases that produce noxious flatus. People who consume many vegetables with prebiotics or take a prebiotic fiber supplement often have non-odoriferous flatus. Fiber and Irritable Bowel Syndrome Irritable bowel syndrome (IBS) is one of the most common disorders of the lower digestive tract. The symptoms of IBS can be quite varied. They can be a mix of several symptoms such as constipation, diarrhea, crampy abdominal discomfort, bloating and gas. An attack of IBS can be triggered by emotional tension and anxiety, poor dietary habits and certain medications. It is now known that infections in the intestine can lead to long-term IBS symptoms. Increased amounts of fiber in the diet can help relieve the symptoms of irritable bowel syndrome by producing soft, bulky stools. This helps to normalize the time it takes for the stool to pass through the colon. Recent medical research with newer techniques has shown some surprising and dramatic findings for IBS patients. Specifically, there is a very significant and abnormal shift of bacteria from those that provide health benefits to those bad bacteria that we really do not want in the gut. The technical name for this bad group of bacteria is called Firmicutes. Along with this abnormal bacterial collection, there is a smoldering low-grade inflammation in the gut wall that may contribute to symptoms. The goal for IBS patients should be to gradually increase the soluble dietary fibers in the diet so as to promote the growth of good bacteria and so suppress the bad ones along with the associated inflammation. IBS patients need to be careful of the amount of soluble fiber they consume. The reason for this is that, while the good colon bacteria thrive on these fibers and produce health benefits, other gas-forming bacteria may generate excessive but harmless gas and subsequent bloating. Thus, soluble plant fibers or a dietary prebiotic supplement should be taken in small initial doses and then gradually increased to tolerance. Fiber and Colon Polyps/Cancer Colon cancer is a major health problem. This disease is most common in Western cultures. It is not seen very often in rural cultures where the diet is mostly plant based. Usually, colon cancer starts out as a colon polyp, a benign mushroom-shaped growth. In time it grows, and in some people it becomes cancerous. Colon cancer is usually always curable if polyps are removed when found or if surgery is performed at an early stage. It is now known that people can inherit the risk of developing colon cancer, but diet is important, too. As noted, there is a very low rate of colon cancer in residents of countries where grains are unprocessed and retain their fiber. It seems that in the [place] world, cancer-containing agents (carcinogens) remain in contact with the colon wall for a longer time and in higher concentrations. So, a large bulky stool may act to dilute these carcinogens by moving them through the bowel more quickly. Less carcinogenic exposure to the colon may mean fewer colon polyps and less cancer. A very current review of the entire world?s literature on the effect of fiber on colon polyps and cancer prevention has shown rather clearly that for every 10 grams of fiber added to the diet, there is a 10% reduction in incidence of colon cancer. So the recommended 30 gram fiber diet would result in a 30% less chance of getting these tumors. There are also substances produced in the colon by the good bacteria that seem to retard certain pre-cancer factors from developing. They are called short-chain fatty acids (SCFA). See above for description of SCFAs. A high fiber diet increases these substances. So, the combination of dietary fiber and the production of short-chain fatty acids have a clear health benefit. Fiber and Diverticulosis Prolonged, vigorous contraction of the colon over a long period of time may result in diverticulosis. This increased pressure causes small and, eventually, larger ballooning pockets to form. These pockets by themselves cause no problem. However, sometimes they become infected (diverticulitis) or even break open (perforate) causing infection or inflammation within the abdomen (peritonitis). A high fiber diet increases the bulk in the stool and thereby reduces the pressure within the colon. By so doing, the formation of pockets may be reduced or possibly even stopped. In the past, many physicians were fearful that seeds as in tomatoes, nuts or berries were harmful and could get inside these pockets and rattle around, causing damage. We now know that this has never been the case and that these foods contain lots of fiber and are actually beneficial for diverticulosis patients. Certain bulking agents such as psyllium are traditional types of bulk producing supplements. Psyllium is a soluble fiber. Combining it with insoluble fiber as in wheat bran or corn bran (no gluten) can enhance this bulking effect even more. A product containing a prebiotic, psyllium and wheat bran is probably a very good combination for bowel regularity. Prebiotin Regularity/Diverticulosis is one such product. Activity:: no lifting over 20#'s or strenuous activity x 72 hrs Diet:: small light meals x 24 hrs Discharge Orders Discharge Orders: Discharge Order (Routine); Ordered 07/25/20 Ordered By: Rajwinder Oliveira DS: Diagnosis Discharge Diagnosis (1) Personal history of colonic polyps: Status: Acute (2) Diverticulosis: Status: Acute (3) Esophageal reflux: Status: Acute
== END 2020-07-25 10:05 | disposition home or self-care (01) ==
PROVIDERS: PCP Family Medicine; Visit Provider Surgery
PROC: (CPT 45385; principal; 2020-07-25 07:30)
DX: J44.9 Chronic obstructive pulmonary disease, unspecified; I10 Essential (primary) hypertension; G47.33 Obstructive sleep apnea (adult) (pediatric); D12.4 Benign neoplasm of descending colon; D12.5 Benign neoplasm of sigmoid colon; K63.89 Other specified diseases of intestine; K31.89 Other diseases of stomach and duodenum; K57.30 Diverticulosis of large intestine without perforation or abscess without bleeding; K44.9 Diaphragmatic hernia without obstruction or gangrene; K29.70 Gastritis, unspecified, without bleeding; Z12.11 Encounter for screening for malignant neoplasm of colon; K22.5 Diverticulum of esophagus, acquired
CPT/HCPCS: 45385; 45380; 43239; 88305; J2001

== ENCOUNTER 2020-10-20 09:44 | Outpatient (CLI) | payer MEDICARE, OTHER, SELFPAY ==
[2020-10-20 13:03] LABS: D-Dimer 446 ng/mlFEU (<500)
== END 2020-10-20 09:45 | disposition home or self-care (01) ==
LOC: LOS 09:44
PROVIDERS: PCP Family Medicine; Referring Provider Nurse Practitioner Family; Visit Provider Nurse Practitioner Family
DX: R22.41 Localized swelling, mass and lump, right lower limb (principal); Z01.818 Encounter for other preprocedural examination; M79.89 Other specified soft tissue disorders
CPT/HCPCS: 36415; 85379; 93971

== ENCOUNTER 2020-10-20 13:20 | Outpatient (CLI) | payer MEDICARE, OTHER, SELFPAY ==
--- NOTE | 2020-10-20 10:31 | DI.US_ITS ---
Exam(s) US LOWER EXTREMITY VENOUS RT EXAM: US LOWER EXTREMITY VENOUS RT CLINICAL HISTORY: right lower extremity swelling, R22.41, preop examination, Z01.818, M79.89 TECHNIQUE: Grayscale, color, and doppler imaging of the deep venous system of the right lower extrem ity was performed. COMPARISON: US US OR ANESTHESIA from 03/27/2020 FINDINGS: There is no evidence of intraluminal thrombus and there is normal compression and augmentation demons trated within the common femoral vein, femoral vein, and popliteal vein. In the ipsilateral calf the interrogated veins also exhibit normal compression/ augmentation properti es. The ipsilateral saphenofemoral junction is patent. There are relatively superficial varicose veins noted in the area of redness and swelling in the post erior calf region. These do not appear thrombosed. There is some edema in the calf noted. IMPRESSION: 1. No evidence of DVT in the right lower extremity. 2. Posterior calf varicose veins which are not thrombosed. DATA REPOSITORY:
== END 2020-10-20 13:40 ==
PROVIDERS: PCP Family Medicine; Visit Provider Nurse Practitioner Family
DX: Z01.818 Encounter for other preprocedural examination (principal); R60.9 Edema, unspecified; M79.89 Other specified soft tissue disorders
CPT/HCPCS: 93971

== ENCOUNTER 2021-05-05 02:16 | Outpatient (CLI) | payer MEDICARE, OTHER, SELFPAY ==
[2021-05-05 09:29] LABS: Hemoglobin A1C 6.2 % (<5.7)
[2021-05-05 10:19] LABS: ALT 38 U/L (16-63); AST 54 U/L (15-37); Albumin 3.8 g/dL (3.4-5.0); Alkaline Phosphatase 171 U/L (46-116); Anion Gap 10.7 mmol/L (3-11); BUN 10 mg/dL (7-18); Bilirubin, Total 0.9 mg/dL (0.2-1.0); CO2 25.3 mmol/L (21.0-32.0); CREATININE 1.1 mg/dL (0.70-1.30); Calcium 9.1 mg/dL (8.5-10.1); Chloride 107 mmol/L (98-107); Glucose 137 mg/dL (74-106); Potassium 4.1 mmol/L (3.5-5.1); Sodium 143 mmol/L (136-145); Total Protein 7.4 g/dL (6.4-8.2)
[2021-05-05 17:20] LABS: GGT 286 U/L (15-85)
== END 2021-05-05 02:17 | disposition home or self-care (01) ==
LOC: LBO 02:16
PROVIDERS: PCP Family Medicine; Visit Provider Family Medicine
DX: R73.9 Hyperglycemia, unspecified (principal); L29.9 Pruritus, unspecified; R10.9 Unspecified abdominal pain; K76.0 Fatty (change of) liver, not elsewhere classified
CPT/HCPCS: 36415; 80053; 82977; 83036

== ENCOUNTER 2021-07-31 02:52 | Outpatient (CLI) | payer MEDICARE, OTHER, SELFPAY ==
[2021-07-31 12:01] LABS: Hemoglobin A1C 6.5 % (<5.7)
[2021-07-31 12:37] LABS: ALT 44 U/L (16-63); AST 59 U/L (15-37); Albumin 3.9 g/dL (3.4-5.0); Alkaline Phosphatase 167 U/L (46-116); Bilirubin, Direct 0.3 mg/dL (0.0-0.2); Bilirubin, Total 1.4 mg/dL (0.2-1.0); Total Protein 7.3 g/dL (6.4-8.2)
[2021-07-31 14:01] LABS: Lab Add On Test DONE
[2021-07-31 14:11] LABS: GGT 255 U/L (15-85)
== END 2021-07-31 02:53 | disposition home or self-care (01) ==
LOC: LBO 02:53
PROVIDERS: PCP Family Medicine; Visit Provider Family Medicine
DX: E11.65 Type 2 diabetes mellitus with hyperglycemia (principal); K76.0 Fatty (change of) liver, not elsewhere classified; G72.89 Other specified myopathies
CPT/HCPCS: 36415; 80076; 82977; 83036

== ENCOUNTER 2021-08-21 01:03 | Outpatient (CLI) | payer MEDICARE, OTHER, SELFPAY ==
[2021-08-21 12:58] LABS: CREATININE 1.1 mg/dL (0.70-1.30)
[2021-08-21] MEDS: Gadoterate meglumine 20 ML VIAL IVP (13:09)
--- NOTE | 2021-08-21 13:50 | DI.MRI_ITS ---
Exam(s) MR ABDOMEN WO/W EXAM: MR ABDOMEN WO/W CLINICAL HISTORY: pruritus and elevated bilirubin; no jaundiCE,HYPERTENSION,I10,L29.9 TECHNIQUE: Multiplanar multisequence MRA of the Abdomen was performed. MRCP sequences. CONTRAST MATERIAL: IV Contrast: mL of Dotarem contrast administered. COMPARISON: CT CT ABDOMEN PELVIS W from 06/06/2018 US US OR ANESTHESIA from 03/30/2019 US US OR ANESTHESIA from 03/27/2020 US US LOWER EXTREMITY VENOUS RT from 10/20/2020 FINDINGS: Exam is limited by respiratory motion and patient body habitus. Lung bases: Grossly clear. Liver: Enlargement of caudate lobe and left lobe. Similar configuration to prior scan. Pancreas: Unremarkable. Gallbladderand Bile Ducts: Status post cholecystectomy. No biliary dilatation. Adrenals: Unremarkable. Kidneys: Left renal cyst. Spleen: Enlarged at 18 cm in length. Mild increase in size when compared with previous exam. May no focal mass. Aorta: Unremarkable. Soft Tissues: Unremarkable. Bone: Unremarkable. Normal marrow signal. Lymph Nodes: Unremarkable. IMPRESSION: Enlargement of the caudate lobe and left lobe of the liver, similar to prior, suspicious for cirrhosi s. No focal mass. Splenomegaly. Status post cholecystectomy. No biliary dilatation. DATA REPOSITORY:
== END 2021-08-21 01:23 ==
PROVIDERS: PCP Family Medicine; Visit Provider Family Medicine
DX: I10 Essential (primary) hypertension (principal); L29.8 Other pruritus; E80.6 Other disorders of bilirubin metabolism; K76.89 Other specified diseases of liver; Z90.49 Acquired absence of other specified parts of digestive tract; R16.1 Splenomegaly, not elsewhere classified
CPT/HCPCS: 74183; 82565

== ENCOUNTER 2021-08-25 09:14 | Outpatient (CLI) | payer MEDICARE, OTHER, SELFPAY ==
--- NOTE | 2021-08-25 09:00 | DI.RAD_ITS ---
Exam(s) XR SHOULDER LT COMPLETE 2+V EXAM: XR SHOULDER LT COMPLETE 2+V CLINICAL HISTORY: left shoulder pain. TECHNIQUE: 2D digital imaging was performed. COMPARISON: CR XR SHOULDER RT COMPLETE 2+V from 01/30/2020 FINDINGS: Two views: No evidence of fracture or dislocation. Small calcification is noted in the subacromial space measur ing 2 x 1 millimeters. Also inferior ridge on the undersurface of the acromion causing impingement a s well as some impingement-type findings on the clavicular side of the AC joint. There are minimal degenerative changes in the glenohumeral joint. Bone density is normal. No osseou s lesions. IMPRESSION: There is mild diminution of the subacromial space height and there is a small 2 x 1 millimeter soft t issue calcification evident in subacromial space, consistent probable calcific rotator cuff tendiniti s. There are subacromial impingement findings as described above. DATA REPOSITORY: RADIATION DOSE DELIVERED:
--- NOTE | 2021-08-25 09:15 | DI.RAD_ITS ---
Exam(s) XR ELBOW LT COMPLETE EXAM: XR ELBOW LT COMPLETE CLINICAL HISTORY: left elbow pain. TECHNIQUE: 2D digital imaging was performed. COMPARISON: No exams were available for comparison FINDINGS: Four views There is a solitary fastener device the level of the lateral epicondyle. No evidence of osteomyeliti s. Appearance of the medial epicondyle most probably reflects chronic epicondylitis. Radial head an d neck appear unremarkable. Calcific densities noted posterior to the olecranon at the insertion sit e of triceps tendon. There is no joint effusion in the elbow joint and there is no significant swell ing of the olecranon bursa. The additional Coy[place] view reveals no obvious abnormality of the radial head and neck. IMPRESSION: DATA REPOSITORY: RADIATION DOSE DELIVERED:
== END 2021-08-25 09:15 | disposition home or self-care (01) ==
PROVIDERS: PCP Family Medicine; Referring Provider Family Medicine; Visit Provider Student in an Organized Health Care Education/Training Program
DX: M75.42 Impingement syndrome of left shoulder; M77.12 Lateral epicondylitis, left elbow; M75.52 Bursitis of left shoulder; M75.22 Bicipital tendinitis, left shoulder; M19.012 Primary osteoarthritis, left shoulder
CPT/HCPCS: 20550; 99214; 73030; 73080; J1030

== ENCOUNTER → 2021-10-20 08:21 | Outpatient (BNVA) | payer MEDICARE, OTHER, SELFPAY | PROVIDERS: PCP Family Medicine; Visit Provider Student in an Organized Health Care Education/Training Program | DX: M77.12 Lateral epicondylitis, left elbow (principal); M75.22 Bicipital tendinitis, left shoulder; M19.012 Primary osteoarthritis, left shoulder; E11.9 Type 2 diabetes mellitus without complications; M75.52 Bursitis of left shoulder | CPT/HCPCS: 20610; 99214; J1030 ==

== ENCOUNTER → 2021-12-22 08:48 | Outpatient (BNVA) | payer MEDICARE, OTHER, SELFPAY | PROVIDERS: PCP Family Medicine; Referring Provider Family Medicine; Visit Provider Student in an Organized Health Care Education/Training Program | DX: M75.22 Bicipital tendinitis, left shoulder (principal); M75.52 Bursitis of left shoulder; M19.012 Primary osteoarthritis, left shoulder; M77.12 Lateral epicondylitis, left elbow | CPT/HCPCS: 99213 ==

== ENCOUNTER 2022-04-07 16:02 | Outpatient (REF) | payer MEDICARE, OTHER, SELFPAY ==
[2022-04-07 12:47] LABS: Microalb ug/mg Crea 8.3 ug/mg Cr
== END 2022-04-07 16:03 | disposition home or self-care (01) ==
LOC: LBN 16:02
PROVIDERS: PCP Family Medicine; Visit Provider Family Medicine
DX: E11.9 Type 2 diabetes mellitus without complications (principal)
CPT/HCPCS: 82043; 82570

== ENCOUNTER → 2022-06-08 09:07 | Outpatient (BNVA) | payer MEDICARE, OTHER, SELFPAY | PROVIDERS: PCP Family Medicine; Referring Provider Family Medicine; Visit Provider Student in an Organized Health Care Education/Training Program | DX: M75.52 Bursitis of left shoulder (principal); M75.22 Bicipital tendinitis, left shoulder; M19.012 Primary osteoarthritis, left shoulder | CPT/HCPCS: 20610; 99213; J1030 ==

== ENCOUNTER 2022-07-14 02:04 | Outpatient (CLI) | payer MEDICARE, OTHER, SELFPAY ==
--- NOTE | 2022-07-14 07:45 | DI.MRI_ITS ---
Exam(s) MR UPPER JOINT LT WO EXAM: MR UPPER JOINT LT WO CLINICAL HISTORY: bursitis of left shoulder,TENDINITIS, M75.52,M75.22. TECHNIQUE: Multiplanar multisequence MRI was performed. COMPARISON: CR XR SHOULDER LT COMPLETE 2+V from 08/25/2021 FINDINGS: BONES: There is no fracture or contusion pattern. JOINTS: Degenerative changes of the acromioclavicular joint are present. The glenohumeral joint is n ormal. TENDONS: Supraspinatus: Tendinosis of the supraspinatus tendon but no evidence of a tear. Infraspinatus: Unremarkable. Subscapularis: Unremarkable. Teres Minor: Unremarkable. Biceps and [place]: Unremarkable. MUSCLES: Unremarkable. GLENOID LABRUM: Unremarkable on this noncontrast examination. SOFT TISSUES: Unremarkable. LIGAMENTS: Unremarkable. OTHER: Subacromial and subdeltoid bursae are unremarkable. IMPRESSION: 1. No evidence of a rotator cuff tear or labral tear on this noncontrast examination. 2. Supraspinatus tendinosis. 3. AC joint osteoarthritis. DATA REPOSITORY:
== END 2022-07-14 02:24 ==
LOC: DI 02:05
PROVIDERS: PCP Family Medicine; Visit Provider Student in an Organized Health Care Education/Training Program
DX: M75.52 Bursitis of left shoulder (principal); M75.22 Bicipital tendinitis, left shoulder; M19.012 Primary osteoarthritis, left shoulder
CPT/HCPCS: 73221

== ENCOUNTER → 2022-07-21 09:50 | Outpatient (BNVA) | payer MEDICARE, OTHER, SELFPAY | PROVIDERS: PCP Family Medicine; Referring Provider Family Medicine; Visit Provider Student in an Organized Health Care Education/Training Program | DX: M75.22 Bicipital tendinitis, left shoulder (principal); M19.012 Primary osteoarthritis, left shoulder; M75.52 Bursitis of left shoulder | CPT/HCPCS: 99213 ==

== ENCOUNTER 2022-08-06 01:26 | Outpatient (CLI) | payer MEDICARE, OTHER, SELFPAY ==
[2022-08-06 07:37] LABS: ALT 35 U/L (16-63); AST 31 U/L (15-37); Albumin 3.5 g/dL (3.4-5.0); Alkaline Phosphatase 163 U/L (46-116); Anion Gap 6.5 mmol/L (3-11); BUN 12 mg/dL (7-18); Bilirubin, Total 0.9 mg/dL (0.2-1.0); CO2 27.5 mmol/L (21.0-32.0); CREATININE 1.2 mg/dL (0.70-1.30); Calcium 9.1 mg/dL (8.5-10.1); Calculated LDL 34 mg/dL (<100); Chloride 111 mmol/L (98-107); Cholesterol 114 mg/dL (<200); Estimated GFR 65.87 (mL/min/1.73m2); Glucose 116 mg/dL (74-106); HDL Cholesterol 38 mg/dL (40-60); Sodium 145 mmol/L (136-145); Triglyceride 210 mg/dL (<150)
[2022-08-06 07:51] LABS: Hemoglobin A1C 6.1 % (<5.7)
== END 2022-08-06 01:27 | disposition home or self-care (01) ==
LOC: LBO 01:26
PROVIDERS: PCP Family Medicine; Visit Provider Family Medicine
DX: E78.5 Hyperlipidemia, unspecified (principal); R73.9 Hyperglycemia, unspecified; R10.9 Unspecified abdominal pain
CPT/HCPCS: 36415; 80053; 80061; 83036

== ENCOUNTER 2022-09-09 02:11 | Outpatient (CLI) | payer MEDICARE, OTHER, SELFPAY ==
--- NOTE | 2022-09-09 08:00 | DI.RAD_ITS ---
Exam(s) RF JOINT INJECTION FLUORO GUID EXAM: RF JOINT INJECTION FLUORO GUID CLINICAL HISTORY: L SHOULDER PAIN,fluoro guided injection,tendinitis,arthritis,m19.012,m75.22 TECHNIQUE: 2D and realtime digital imaging was performed. CONTRAST MATERIAL: Refer to procedure report. COMPARISON: No exams were available for comparison FINDINGS: Fluoroscopy was provided for Dr. Ga Parks during the performance of a left shoulder injection. Please refer to the procedure report for complete details. Ka,r=4.71 mGy IMPRESSION: RADIATION DOSE DELIVERED:
[2022-09-09] MEDS: methylPREDNISolone ACETATE 80 MG/ML VIAL IM (15:10)
[2022-09-09] MEDS: Bupivacaine 0.5% Pres-Free 10 ML VIAL 2 ML IJ (15:10)
[2022-09-09] MEDS: Omnipaque 300 MG/ML 10 ML BTL IJ (15:11)
== END 2022-09-09 02:31 ==
LOC: DI 02:12
PROVIDERS: PCP Family Medicine; Visit Provider Student in an Organized Health Care Education/Training Program
DX: M19.012 Primary osteoarthritis, left shoulder (principal); M75.22 Bicipital tendinitis, left shoulder
CPT/HCPCS: 20610; 77002; J1040

== ENCOUNTER → 2022-11-17 11:27 | Outpatient (BNVA) | payer MEDICARE, OTHER, SELFPAY | PROVIDERS: PCP Family Medicine; Referring Provider Family Medicine; Visit Provider Student in an Organized Health Care Education/Training Program | DX: M19.012 Primary osteoarthritis, left shoulder (principal); M75.52 Bursitis of left shoulder; M75.22 Bicipital tendinitis, left shoulder | CPT/HCPCS: 99214 ==

== ENCOUNTER 2022-11-25 05:56 | Day surgery (SDC) | payer MEDICARE, OTHER, SELFPAY ==
[2022-11-25] VITALS (12 sets, daily range): BP systolic 113–154; BP diastolic 52–79; PULSE 66–74; RESP 12–27; TEMP 36.1–36.7; O2SAT 94–100; BMI 39.4
--- NOTE | 2022-11-25 07:01 | W.ANESPRE ---
General Info Date of Service Date Performed: 11/25/22 Height: 5 ft 10 in Weight: 124.5 kg Body Mass Index (BMI): 39.4 Surgical Procedure: Operation Date: 11/25/22 08:25 Proposed Procedure Side Surgeon p Shoulder Rotator Cuff Arthroscopic w/Extensive Debridement, Biceps Tenodesis, Subacromial Decompression, Distal Clavicle Excision Left Piter Farmer MD Meds Allergies and Home Medications Allergies Allergy/AdvReac Type Severity Reaction Status Date / Time omega-3 acid ethyl esters AdvReac Severe FOUL Verified 11/25/22 06:03 [From Lovaza] TASTE, NAUSEA ondansetron AdvReac Intermediate nausea Verified 11/25/22 06:03 SEASONAL ALLERGIES Allergy Mild ITCHY Uncoded 11/24/22 11:56 WATERY EYES Home Medication Medication Instructions Recorded acetaminophen 500 mg tablet 2 tab PO PRN 08/01/12 multivitamin 1 ea PO DAILY 08/01/12 carboxymethylcellulose sodium 0.5 1 ea OU QID PRN PRN ##1 08/21/15 % eye drops in a dropperette (Refresh Plus) blood sugar diagnostic (Accu-Chek #260 strips 04/02/19 Leanne Plus test strips) pen needle, diabetic 33 gauge x #550 ea 06/07/1907/08 (Comfort EZ Pen [place]) blood-glucose meter,continuous #1 ea 08/15/19 (Dexcom G6 Air Conditioning Coil Assembler) blood-glucose sensor (Dexcom G6 #3 ea 08/15/19 Sensor device) blood-glucose transmitter (Dexcom #1 ea 08/15/19 G6 Transmitter device) mometasone 0.1 % topical cream 1 applic topical DAILY PRN 07/24/20 triamcinolone acetonide 0.1 % 1 applic topical BID PRN ankle 01/07/21 topical cream rash #45 grams irbesartan 150 mg tablet (Avapro) 150 mg PO DAILY #90 tab-caps 03/25/22 furosemide 20 mg tablet (Lasix) 20 - 40 mg PO DAILY #180 tabs 04/07/22 meclizine 25 mg tablet 25 - 50 mg PO TID PRN dizziness 04/07/22 #100 tabs montelukast 10 mg tablet 10 mg PO DAILY #90 tabs 04/07/22 (Singulair) insulin glargine U-300 conc 300 120 - 160 unit (0.4 - 0.5333 mL) 06/07/22 unit/mL (3 mL) subcutaneous pen subcut TID #435 mL (Toujeo Max U-300 SoloStar) empagliflozin 25 mg tablet 25 mg PO QAM #90 tabs 07/13/22 (Jardiance) propranolol 60 mg capsule,24 60 mg PO DAILY #90 tab-caps 07/13/22 hr,extended release (Inderal LA) insulin lispro-aabc 200 unit/mL (3 40 - 60 unit (0.2 - 0.3 mL) subcut 07/20/22 mL) subcutaneous pen (Lyumjev TID #81 mL KwikPen U-200 Insulin) atorvastatin 40 mg tablet 40 mg PO DAILY #90 tab-caps 08/12/22 esomeprazole magnesium 40 mg 40 mg PO DAILY PRN dyspepsia #90 08/12/22 capsule,delayed release (Nexium) caps tirzepatide 10 mg/0.5 mL 10 mg (0.5 mL) subcut QWEEK #2 mL 09/08/22 subcutaneous pen injector (Paola) aspirin 81 mg tablet,delayed 81 mg PO DAILY prevent blood clot 11/25/22 release 7 days #7 tabs naproxen 250 mg tablet 250 - 500 mg PO BID PRN #20 tabs 11/25/22 oxycodone 5 mg tablet 5 - 10 mg PO Q4H PRN moderate to 11/25/22 severe pain #7 tabs Current Visit Medications: Current Medications Generic Name Dose Route Start Last Admin Trade Name Freq PRN Reason Stop Dose Admin Ringer's Solution 1,000 mls @ 30 mls/hr 11/25/22 06:00 IV 11/25/22 16:00 INFUSION JOSEPH Cefazolin Sodium 3,000 mg/ 100 mls @ 200 mls/hr 11/25/22 06:00 Sodium Chloride IV 11/25/22 16:00 PREOP JOSEPH IV Miscellaneous Supplies 1 each 11/25/22 06:00 Iv Access IV 11/25/22 23:59 DIRECTED JOSEPH Sodium Chloride 0 ml 11/25/22 06:00 Normal Saline Flush 10 Ml Syr IV 11/25/22 23:59 PRN PRN Sodium Chloride 0 ml 11/25/22 06:00 Normal Saline 10 Ml Vial IJ 11/25/22 23:59 DIRECTED PRN Sterile Water 0 ml 11/25/22 06:00 Water,Injection,Sterile 10 Ml Vial IJ 11/25/22 23:59 DIRECTED PRN PFSH Active Problems Active Problems: Problem Status Onset Code Olfactory aura R43.1 Nose congestion R09.81 Preventative health care Z00.00 Tendinitis of long head of biceps brachii of left shoulder M75.22 Leg cramps R25.2 Nail dystrophy L60.3 Morbid obesity E66.01 Bursitis of left shoulder M75.52 Arthritis of left acromioclavicular joint M19.012 Arthritis of left shoulder region M19.012 Left lateral epicondylitis M77.12 Generalized pruritus L29.9 Chills R68.83 Leg pain, right M79.604 Tubular adenoma ~07/2020 D36.9 Personal history of colonic polyps Z86.010 Lumbar disc disease with radiculopathy M51.16 Age-related macular degeneration 06/16/12 H35.30 Benign hypertension 03/20/13 I10 Chronic obstructive lung disease J44.9 Cirrhosis of liver 11/23/12 K74.60 Diabetic retinopathy 05/22/15 E11.319 Diverticulosis K57.90 Esophageal reflux K21.9 Epistaxis 05/31/16 R04.0 Fatty liver 05/03/16 K76.0 Gastroesophageal reflux disease K21.9 Hyperlipidemia 03/20/13 E78.5 Increased body mass index R63.8 Obstructive sleep apnea syndrome G47.33 Polyneuropathy in diabetes 04/09/14 E11.42 Polyp of colon 03/24/05 K63.5 Rhinitis J31.0 Type II diabetes mellitus with neurological manifestations, uncontrolled E11.49, E11.65 Varicocele I86.1 Varicose veins of lower extremity I83.90 Dysphagia R13.10 Gastritis K29.70 Lumbar radiculitis M54.16 Abdominal pain R10.9 Gastroparesis K31.84 Nasal septal perforation J34.89 Pre-operative examination Z01.818 Status post vasectomy Z98.52 Status post cholecystectomy Z90.49 Pleural effusion 03/24/02 J90 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 Hypertension I10 Generalized osteoarthritis M15.9 Family history of malignant neoplasm of prostate Z80.42 Cellulitis of leg L03.119 Cataract H26.9 Carpal tunnel syndrome G56.00 Diabetes mellitus E11.9 Post-traumatic osteoarthritis of left knee M17.32 BPPV (benign paroxysmal positional vertigo) H81.10 Adhesive capsulitis of right shoulder M75.01 Elevated serum GGT level R74.8 Arthritis of right acromioclavicular joint M19.011 Rotator cuff tear, right M75.101 Bursitis of right shoulder M75.51 Biceps tendinitis of right shoulder M75.21 Impingement syndrome of right shoulder M75.41 Edema of both lower extremities R60.0 Morbid obesity E66.01 Status post arthroscopy of right shoulder 03/30/19 Z98.890 Scaly patch rash R21 Medical History Medical History Blindness of left eye COPD (chronic obstructive pulmonary disease) Diabetes type 2, controlled Diabetic neuropathy GERD (gastroesophageal reflux disease) Hiatal hernia History of colon polyps History of tobacco use Hyperlipidemia Hypertension Impingement syndrome of left shoulder Macular degeneration DARIANA (obstructive sleep apnea) Right shoulder tendonitis Rotator cuff impingement syndrome of right shoulder Septic arthritis of knee, left (06/28/13) Tendonitis of long head of biceps brachii of right shoulder Vestibular neuritis Surgical History Surgical History Arthroplasty of knee (08/01/15) DR. GOLDSTEIN; LEFT KNEE Pt. states not replacement but arthroscopy Cholecystectomy EGD - MAC (12/19/13) [facility] [place] H/O microdiscectomy 07/10/18; [facility] [place]; LEFT L5-S1-kb History of arthroscopy of knee (08/01/15) History of colonoscopy with polypectomy (~07/25/20) History of esophagogastroduodenoscopy History of esophagogastroduodenoscopy (EGD) (~03/31/18) 03/31/18 Dr Tillman, erosive gastritis, proceed with US if no better in 3 weeks. History of esophagogastroduodenoscopy (EGD) (~07/25/20) History of vein stripping S/P surgery on nasal septum (~06/19/18) 06/19/18 [facility] [place]; SEPTAL BUTTON PLACEMENT Status post arthroscopic surgery of left knee (06/28/13) Vasectomy VEIN STRIPPING LOWER RIGHT EXTREMITY Tobacco Smoking/Tobacco Use Status: Former Tobacco Use Smokeless tobacco user: other (Cigarettes) Passive smoking exposure: Yes Second hand exposure: Yes Alcohol Alcohol Intake: current Alcohol intake frequency: a few times a month Alcohol type: beer Substance Use Substance use: Never Substance use type: does not use Vital Signs and Lab Results Vital Signs Most Recent Vital Signs in EMR: Most Recent Vital Signs Temp Pulse Resp BP Pulse Ox 36.6 C 66 16 122/52 L 98 11/25/22 06:09 11/25/22 06:09 11/25/22 06:09 11/25/22 06:09 11/25/22 06:09 Lab Results Blood Type / Crossmatch: No Data to Display Complete Blood Count: No Data to Display Complete Metabolic Panel: No Data to Display Liver Function Panel: No Data to Display Coagulation Panel: No Data to Display Cardiac Panel: No Data to Display Arterial Blood Gas: No Data to Display Venous Blood Gas: No Data to Display Pancreas Panel: No Data to Display Thyroid Panel: No Data to Display Infectious Disease: No Data to Display Blood Cultures: No Data to Display Toxicology Panel: No Data to Display Imaging and Studies Imaging and Studies Study information below may be from another EMR and interpreted by another provider. Please see original notes in EMR for more complete details. Stress Test Summary: Date of study: 08/21/2015 (Report amended ) *PATIENT PRESENTATION* Height: 182.9cm (72in ) Blood Pressure: Weight: 115kg (253lb ) BSA: 2.45m^2 Summary: 1. Myocardial perfusion imaging: No myocardial perfusion defects noted. 2. The calculated left ventricular ejection fraction after stress: 63%. No left ventricular regional motion abnormality. Echocardiogram Summary: Date of Exam: 10/08/19ex: M Admission Date: 10/08/19 : 1955 Age: 64 Exam(s) a US:US echocardiogram APPROVED REPORT EXAM: Comprehensive 2D, Doppler, and color-flow Echocardiogram Patient Location: Out-Patient Radio Officer: Wendy Bay RDCS (AE) Other Information Study Quality: Fair. Technically limited study due to body habitus. Conclusion This is a technically limited study. Left Ventricle : The left ventricle is normal size. The left ventricular systolic function is normal. The left ventricular ejection fraction is within the normal range. There is normal left ventricular wall thickness. There is normal LV segmental wall motion. The left ventricular diastolic function is normal. LVEF is 50%. Right Ventricle : Right ventricle is not well visualized. Right ventricular systolic function could not be assessed. The RVSP is 30.5mmHg. Atria : The left atrium size is normal. The right atrium size is normal. Valves: There are no hemodynamically significant valvular lesions. Great Vessels : The IVC collapses <50% with inspiration. There is no prior echocardiogram available for comparison. Anesthesia Assessment and Plan Anesthesia History Personal History: No History of Anesthesia Complications Family History: No Family History of Anesthesia Complications Exercise Tolerance Exercise Tolerance: Metabolic Equivalents>4 Pertinent Negatives Pertinent Negatives: No Symptoms of GERD and No Major Cardiovascular Symptoms or Complaints Cardiac & Pulmonary Exam Cardiac Exam: Normal S1/S2 Heart Sounds Pulmonary Exam: Clear Bilateral Breath Sounds Implantable Cardiac Device Does patient have a Pacemaker or an ICD?: No Airway Exam Known Difficult Airway: No Mallampati Class: 3 Mouth Opening: Normal (> 3cm) Thyromental Distance: Greater than 3 cm Neck Range of Motion: Full ROM Neck Circumference: Normal Teeth Condition: Normal Dentition ASA Classification ASA Score: ASA 3 Emergency Case?: No NPO Status NPO Status: NPO Clears >2 hours, Solids >8 hours Anesthesia Plan Resuscitation Status: Full Code Anesthesia Technique: General Anesthesia Airway Planned: Endotracheal Tube Pain Management: Surgeon and patient request nerve block Monitors Used: Standard Monitors
[2022-11-25] MEDS: Lactated Ringers 1,000 ML 30 ML IV (07:05)
--- NOTE | 2022-11-25 07:15 | PDOC.DSDIS_ITS ---
Date of service: 11/25/22 Time of Service: 11:00 Discharge Plan Disposition Patient Disposition: Home Condition: Stable Discharge Details Attending Provider: Piter Farmer Primary Care Provider: Naga Keys Home Meds and New Rx's Prescriptions: New aspirin 81 mg tablet,delayed release (DR/EC) 81 mg PO DAILY 7 Days Qty: 7 0RF naproxen 250 mg tablet 250 - 500 mg PO BID PRNQty: 20 0RF Rx Instructions: take with a meal oxycodone 5 mg tablet 5 - 10 mg PO Q4H MDD 30 mg PRN (Reason: moderate to severe pain) Qty: 7 0RF Continued (DME) pen needle, diabetic [Comfort EZ Pen [place]] 33 gauge x 3/16 needle See Rx Instructions .ROUTE .MEDSUPPLY Qty: 550 3RF Rx Instructions: inject 6 times/day triamcinolone acetonide 0.1 % cream 1 applic Topical BID PRN (Reason: ankle rash) Qty: 45 1RF Rx Instructions: apply to rash on thighs and armpits as needed atorvastatin 40 mg tablet 40 mg PO DAILY Qty: 90 4RF esomeprazole magnesium [Nexium] 40 mg capsule,delayed release(DR/EC) 40 mg PO DAILY PRN (Reason: dyspepsia) Qty: 90 4RF furosemide [Lasix] 20 mg tablet 20 - 40 mg PO DAILY Qty: 180 3RF montelukast [Singulair] 10 mg tablet 10 mg PO DAILY Qty: 90 3RF Mounjaro 10 mg/0.5 mL pen injector 10 mg subcut QWEEK Qty: 2 5RF acetaminophen 500 MG tablet 2 tab PO PRN multivitamin 1 EACH capsule 1 ea PO DAILY (DME) Accu-Chek Leanne Plus test strp Strip 1 ea Miscellaneous DAILY Qty: 260 4RF Rx Instructions: Check blood sugar three times a day (DME) Dexcom G6 Dry Clipper Tender Misc See Rx Instructions .ROUTE .MEDSUPPLY Qty: 1 0RF Rx Instructions: As directed (DME) Dexcom G6 Sensor Device See Rx Instructions .ROUTE .MEDSUPPLY Qty: 3 11RF Rx Instructions: As directed (DME) Dexcom G6 Transmitter Device See Rx Instructions .ROUTE .MEDSUPPLY Qty: 1 0RF Rx Instructions: As directed irbesartan [Avapro] 150 mg tablet 150 mg PO DAILY Qty: 90 3RF meclizine 25 mg tablet 25 - 50 mg PO TID PRN (Reason: dizziness) Qty: 100 5RF Toujeo Max U-300 SoloStar 300 unit/mL (3 mL) insulin pen 120 - 160 unit SC TID Qty: 435 3RF Jardiance 25 mg tablet 25 mg PO QAM Qty: 90 3RF propranolol [Inderal LA] 60 mg capsule,extended release 24 hr 60 mg PO DAILY Qty: 90 3RF Lyumjev KwikPen U-200 Insulin 200 unit/mL (3 mL) insulin pen 40 - 60 unit subcut TID Qty: 81 3RF carboxymethylcellulose sodium [Refresh Plus] 30 EA dropperette 1 ea OU QID PRN PRNQty: 1 0RF mometasone 0.1 % cream 1 applic TP DAILY PRN Discharge Instructions Additional Instructions: Surgery: Left shoulder arthroscopy with biceps tenodesis, extensive debridement, distal clavicle excision, and subacromial decompression. Activity: You should gradually increase range of motion motion and use of your shoulder. You may use your shoulder for all regular activities while protecting biceps repair. Avoid any weighted elbow flexion or resisted supination for 6-8 weeks. No heavy lifting, reaching overhead, or lifting away from body for approximately 2-3 months. You may use the sling whenever you are out of the house for a few weeks. At home it is best to remove the sling and rest the arm on a pillow at your side or support the operative side with your other hand. A physical therapy prescription will be sent electronically to start in about 3 weeks. Prescriptions: Aspirin 81 mg take 1 daily to prevent a blood clot for 7 days Naproxen 250 mg take 1-2 every 12 hours with a meal as needed for moderate pain Oxycodone 5 mg take 1-2 every 4-6 hours as needed for severe pain You may use [id number] Tylenol (acetaminophen) as needed for mild pain. These pain medications may be taken all at once or in different combinations as needed. Also, recommend Colace (docusate) as a stool softener as surgery and pain medicine cause constipation. You may try [id number] diphenhydramine (Benadryl) 25-50 mg nightly as a sleep aid Dressings: Remove shoulder bandage after 3 days. Leave the sticky Steri-Strips in place until they fall off or remove them after you shower. Cover the incisions with Band-Aids or leave them open to air. You may shower after 5 days. Follow-up: 10-[address] Farmer You may take off the leg compression stockings this evening at home. You may also leave them on a few days longer if you have a history of leg swelling or edema. Let us know right away if you develop any redness, drainage, fevers, chest pain, or trouble breathing. Do not drink alcohol or drive for at least 24 hours after anesthesia. Please call the office during business hours with any questions or concerns. Discharge Orders Discharge Orders: Discharge Order (Routine); Ordered 11/25/22 Ordered By: Piter Farmer DS: Diagnosis Discharge Diagnosis (1) Arthritis of left shoulder region: Status: Acute
--- NOTE | 2022-11-25 07:18 | W.PM.OP ---
Date of service: 11/25/22 Time of Service: 07:45 Operative Note Operative Note DATE OF PROCEDURE: 11/25/22 PRE-OP DIAGNOSIS: Left: 1. AC joint arthritis 2. LHB tendinopathy 3. Bursitis POST-OP DIAGNOSIS: same PROCEDURE: Left: 1. Arthroscopic distal clavicle excision, CPT# 78610. This involved arthroscopically exposing the underside of the acromioclavicular joint, smoothing out bone spurs, and removing approximately 5 mm of the distal clavicle so there was no bone left engaging the acromion. 2. Arthroscopic biceps tenodesis, CPT# 37593. This involved arthroscopically suturing and reattaching the long head of the biceps tendon to the proximal humerus at the superior margin of the bicipital groove with a screw at the correct tension. 3. Extensive debridement, CPT# 27995. This involved using arthroscopic hand instruments, power instruments, and radiofrequency instruments to release the long head of the biceps tendon and debride areas of anterio and superior labral tearing, rotator interval and anterior synoviti[, release anterior capsule MGHL, and mild chondromalacia about the superior biceps groove working within the glenohumeral joint anteriorly, superiorly and posteriorly. 4. Subacromial decompression with partial acromioplasty, CPT# 15211. This involved using arthroscopic power instruments and a radiofrequency wand to complete a bursectomy and smooth the undersurface of the acromion. The expanded function dental assistant was medically required in order to help assist in techniques above, which require positioning the arm, holding the arthroscope, and manipulating multiple instruments and sutures at the same time. This cannot be done without the help of an experienced expanded function dental assistant. SURGEON: Piter Farmer PHYSICIAN INTERVENTIONAL CARDIOLOGIST: Raina Ch ANESTHESIA TYPE: General LMA/ETT and Primary Nerve Block Refer to Anesthesia Record ESTIMATED BLOOD LOSS: 10 PATHOLOGY: none sent COMPLICATIONS: None Patient was transported to: PACU Patient's condition: stable Implants: Arthrex: 4.75mm SwiveLocks x 1 Indications: The patient was diagnosed with the above conditions and appropriately indicated for surgical intervention. Please see complete medical record for details. Findings: Exam under anesthesia: Majority full range of motion, no instability, no significant mechanical symptoms Glenohumeral joint: Moderately significant anterior rotator interval synovitis, moderate anterior and superior labral fraying involving the biceps anchor as a SLAP tear. Minimal posterior labral fraying. Intact articular rotator cuff. Intact subscapularis. Small area maybe 8 x 12 moderate to high-grade chondromalacia at the superior aspect bicipital groove under inflamed injected biceps tendon. Remainder of glenoid and humeral head cartilage intact, which was surprising considering the joint space narrowing. Subacromial space: Moderate bursitis, injected/inflamed rotator cuff without any significant bursal structural tear. Impinging undersurface distal clavicle on medial cough as well as engaging on the acromion. Procedure Description: In the operating room, general anesthesia was induced. Bilateral shoulders were examined. The patient was positioned in the beachchair position. All bony prominences were well-padded. Preoperative antibiotics were administered. The shoulder was prepped and draped in the usual sterile fashion. The correct patient, procedure, and side of the procedure were all verified prior to incision. Starting through the posterior portal a standard complete diagnostic arthroscopy was performed of the glenohumeral joint including inspection of the long head of the biceps, anterior and superior labrum, subscapularis tendon, supraspinatus and infraspinatus tendons, and axillary recess. The glenoid and humeral head cartilage as well as the posterior labrum were inspected from an anterior viewing portal. Significant findings and interventions noted above. An all-arthroscopic suprapectoral biceps tenodesis was performed through an anterior portal using a Loop N Tack method with a SutureTape FiberLink cinched around and through the tendon. The biceps was tenotomized from the labrum and fixated with a suture anchor at the superior margin of the bicipital groove. The knotless repair stitch was then shuttled around the biceps tendon stump before being shuttled through the anchor mechanism adding excellent additional security to the already stable repair. Starting through the posterior portal, the arthroscope was directed into the subacromial space. A lateral 50 yard line lateral portal was created. A combination of power instruments and a radiofrequency ablator were used to debride bursitis anteriorly, posteriorly, and laterally as well as expose and smooth bone spurring on the undersurface of the acromion. The coracoacromial ligament was partially released. The bursectomy was completed viewing laterally and working from posteriorly and the rotator cuff was thoroughly inspected with findings noted above. The anterior portal was redirected towards the undersurface of the AC joint. A shaver and electrocautery device were used to clear soft tissue from the undersurface of the AC joint. The distalmost few millimeters of the distal clavicle and engaging medial aspect of the acromion was then removed and smoothed. Care was taken to alternate between working through the anterior portal and viewing through the anterior portal to ensure that proper amount of bone was removed and there was no engaging bone left behind especially superiorly. The shoulder was drained of arthroscopic fluid. All portal sites were copiously irrigated. These incisions were closed using 3-0 Monocryl in a buried fashion and then covered with Mastisol, Steri-Strips, Xeroform, dry gauze, and ABDs. The dressings were covered and secured with Medipore tape. The operative extremity was placed into a sling for immobilization. The patient awoke from anesthesia without complication and was transferred to the recovery room in a stable condition.
[2022-11-25] MEDS: ceFAZolin 3,000 MG in Normal Saline 100 ML 200 MG IV (07:48)
--- NOTE | 2022-11-25 08:32 | W.ANESNERVE ---
Nerve Block Single Injection Procedure Date and Time Date Performed: 11/25/22 Procedure Start: 07:32 Location Where Procedure Performed Procedure Location: Day Surgery Unit Reason Performed: Postoperative Analgesia Requesting Provider: Piter Farmer Timeout Performed Timeout Performed: Yes Monitoring Used ECG, Blood Pressure, SpO2 and See EMR for corresponding vital signs Sterility Sterility: Hand Hygiene, Surgical Cap, Surgical Mask, Sterile Gloves and Chlorhexidine Sedation Given During Procedure Sedation Given (Indicate Dose Given): Versed IV Dose:: 1mg Patient Mental Status Patient Mental Status: Sedate with meaningful communication Nerve Block 1st Nerve Block: Laterality: Left Block Type: Supraclavicular Ultrasound Image Saved?: Yes Needle / Catheter Used: 100mm SonoPlex II Local Anesthetic Bolus (Indicate Dose Given): Lidocaine used for local infiltration of skin, Injected in 3-5ml increments after negative blood aspiration, Bupivacaine 0.5% Dose:: 10ml and Exparel Dose:: 10ml Additives (Indicate Dose Given): None Ultrasound: Sterile probe cover and gel used Nerve Stimulator: Supplement to Ultrasound use, No twitch or parasthesia noted < 0.5 mA and Other (When needle just above nerve, did note a moment of shoulder twitch. Needle position adjusted to be safe) Paresthesia: None Procedure Tolerated: No Complications and Patient tolerated well Procedure Outcome: Successful Performed By: Wayne Sargent
[2022-11-25] MEDS: EPINEPHrine 30 MG/30 ML VIAL (09:00)
--- NOTE | 2022-11-25 10:21 | W.ANESPOSTOP ---
Postoperative Evaluation Date, Time and Location Date Performed: 11/25/22 Time Performed: 10:21 Patient Location: PACU Vital Signs Most Recent Imported Vital Signs: Most Recent Vital Signs Temp Pulse Resp BP Pulse Ox 36.2 C L 71 14 121/64 97 11/25/22 10:07 11/25/22 10:07 11/25/22 10:07 11/25/22 10:07 11/25/22 10:07 Pain Score Most Recent Pain Score: Most Recent Pain Score Pain Level 4 11/25/22 10:07 Assessment Mental Status: Awake (Alert & Oriented to Patient Baseline) Airway and Respiratory Function: Patent airway with normal (patient baseline) respiratory exam Cardiovascular Function: Hemodynamically Stable Hydration Status: Adequately Hydrated Nausea & Vomiting: No Nausea or Vomiting Pain: Pain is tolerable per patient Peripheral Nerve Block: Regional nerve block not resolved at time of post operative discharge Postoperative Comments:: Pt. appears comfortable and is conversive and smiling. Explained that the nerve block medication may continue to kick in over the next few hours. He denies any nausea.
[2022-11-25] MEDS: oxyCODONE 5 MG TAB PO (11:18)
== END 2022-11-25 11:44 | disposition home or self-care (01) ==
PROVIDERS: PCP Family Medicine; Visit Provider Student in an Organized Health Care Education/Training Program
PROC: (CPT 29827; principal; 2022-11-25 08:15)
DX: M19.012 Primary osteoarthritis, left shoulder (principal); E11.40 Type 2 diabetes mellitus with diabetic neuropathy, unspecified; G47.33 Obstructive sleep apnea (adult) (pediatric); J44.9 Chronic obstructive pulmonary disease, unspecified; K21.9 Gastro-esophageal reflux disease without esophagitis; M75.22 Bicipital tendinitis, left shoulder; M75.52 Bursitis of left shoulder
CPT/HCPCS: 29828; 29826; 29824; 29823; 76942; J0690; J1100; J1790; J2250; J2371; J2405; J2704

== ENCOUNTER → 2022-12-08 13:22 | Outpatient (BNVA) | payer MEDICARE, OTHER, SELFPAY | PROVIDERS: PCP Family Medicine; Referring Provider Family Medicine; Visit Provider Student in an Organized Health Care Education/Training Program | DX: Z47.89 Encounter for other orthopedic aftercare (principal); M75.52 Bursitis of left shoulder; M75.22 Bicipital tendinitis, left shoulder ==

== ENCOUNTER 2023-01-10 11:18 | Outpatient (CLI) | payer MEDICARE, OTHER, SELFPAY ==
--- NOTE | 2023-01-10 11:15 | RT.EKG_ITS ---
APPROVED REPORT Exam: Resting ECG Reason for Exam: Chest discomfort Patient Location: O HR:76 bpm ECG Measurements Heart Rate 76 AXIS UT 178 P 72 QRSd 101 QRS 65 QT 412 T 66 QTc 464 Conclusion Sinus rhythm...normal P axis, V-rate 50- 99 Possible anteroseptal infarct, age indeterminate...Q >35mS, T neg, V1-V2
== END 2023-01-10 11:19 | disposition home or self-care (01) ==
LOC: DI.CM 11:18
PROVIDERS: PCP Family Medicine; Visit Provider Nurse Practitioner Family
DX: R07.89 Other chest pain (principal)
CPT/HCPCS: 93010

== ENCOUNTER 2023-01-10 11:40 | Emergency (ER) | payer MEDICARE, OTHER, SELFPAY ==
[2023-01-10] VITALS (18 sets, daily range): BP systolic 112–144; BP diastolic 49–62; PULSE 74–86; RESP 18–40; TEMP 36.6; O2SAT 94–100
--- NOTE | 2023-01-10 11:30 | RT.EKG_ITS ---
APPROVED REPORT Exam: Resting ECG Reason for Exam: chest pain Patient Location: E HR:74 bpm ECG Measurements Heart Rate 74 AXIS DC 200 P 47 QRSd 108 QRS 64 QT 407 T 67 QTc 452 Conclusion normal Sinus rhythm...V-rate 60- [address] segment or T wave abnormalities to suggest occlusive AR
--- NOTE | 2023-01-10 12:30 | DI.US_ITS ---
Exam(s) US LOWER EXTREMITY VENOUS RT EXAM: US LOWER EXTREMITY VENOUS RT CLINICAL HISTORY: pain and swelling. TECHNIQUE: Lower extremity venous ultrasound performed using grayscale, color-flow, and spectral Do ppler analysis. COMPARISON: No exams were available for comparison FINDINGS: The common femoral, femoral and popliteal veins demonstrate normal compressibility, augmentation, and color Doppler. The posterior tibial veins are patent. No saphenous vein thrombosis or other superfi cial venous thrombosis is seen. No hematoma or Mishra's cyst is seen. IMPRESSION: Negative lower extremity ultrasound. No evidence of DVT. DATA REPOSITORY:
[2023-01-10 13:18] LABS: Abs Immature Grans 0.01 10^3/uL (0.0-0.06); Absolute Basophil Count 0.01 10^3/uL (0.0-0.2); Absolute Eosinophil Count 0.07 10^3/uL (0.0-0.7); Absolute Lymphocyte Count 0.26 10^3/uL (1.2-3.4); Absolute Monocyte Count 0.34 10^3/uL (0.1-0.8); Absolute Neutrophil Count 3.34 10^3/uL (1.2-6.7); Basophils % 0.2; Eosinophils % 1.7; HCT 33.6 % (40.0-50.0); HGB 11.7 g/dL (13.5-17.5); Immature Grans % 0.2; Lymphocytes % 6.5; MCH 31.4 pg (27.0-33.0); MCHC 34.8 % (32.0-36.0); MCV 90 fL (80-95); MPV 9.9 fL (8.0-11.0); Monocytes % 8.4; RBC 3.73 10^6/uL (4.36-5.78); RDW 14.6 % (11.8-14.1); WBC 4.03 10^3/uL (4.4-10.8)
[2023-01-10 13:36] LABS: Diff Comment Diff Reviewed; Platelet Count 58 10^3/uL (130-400)
[2023-01-10 13:37] LABS: RBC Morphology Normal
[2023-01-10 13:46] LABS: ALT 30 U/L (16-63); AST 40 U/L (15-37); Albumin 3.6 g/dL (3.4-5.0); Alkaline Phosphatase 121 U/L (46-116); Anion Gap 10.3 mmol/L (3-11); BUN 21 mg/dL (7-18); Bilirubin, Total 3.4 mg/dL (0.2-1.0); CO2 24.7 mmol/L (21.0-32.0); CREATININE 1.5 mg/dL (0.70-1.30); Calcium 9.4 mg/dL (8.5-10.1); Chloride 103 mmol/L (98-107); Glucose 170 mg/dL (74-106); Magnesium 1.9 mg/dL (1.8-2.4); NT-proBNP 114 pg/mL (<300); Potassium 3.2 mmol/L (3.5-5.1); Sodium 138 mmol/L (136-145); Total Protein 7.1 g/dL (6.4-8.2); Troponin I < 50 ng/L (<or=60)
--- NOTE | 2023-01-10 13:53 | DI.RAD_ITS ---
Exam(s) XR CHEST 2V PA LATERAL EXAM: XR CHEST 2V PA LATERAL CLINICAL HISTORY: shortness of breath TECHNIQUE: 2D digital imaging was performed. COMPARISON: CR XR CHEST 2V PA LATERAL from 09/27/2019 FINDINGS: HEART: Normal size. Aorta: Not dilated. PULMONARY VASCULATURE: Normal. LUNGS: Clear. PLEURAL SPACE: No pleural effusion or pneumothorax. BONE:Unremarkable for age. IMPRESSION: No acute abnormality. DATA REPOSITORY: RADIATION DOSE DELIVERED:
--- NOTE | 2023-01-10 13:56 | W.ED.GENAD ---
Discharge Plan Disposition Patient Disposition: Home Condition: Good Discharge Details Clinical Impression: Cellulitis, Chest pain Primary Care Provider: Naga Keys ED Provider: Harika Slater Home Meds and New Rx's Prescriptions: No Action (DME) pen needle, diabetic [Comfort EZ Pen [place]] 33 gauge x 3/16 needle See Rx Instructions .ROUTE .MEDSUPPLY Qty: 550 3RF Rx Instructions: inject 6 times/day triamcinolone acetonide 0.1 % cream 1 applic Topical BID PRN (Reason: ankle rash) Qty: 45 1RF Rx Instructions: apply to rash on thighs and armpits as needed atorvastatin 40 mg tablet 40 mg PO DAILY Qty: 90 4RF esomeprazole magnesium [Nexium] 40 mg capsule,delayed release(DR/EC) 40 mg PO DAILY PRN (Reason: dyspepsia) Qty: 90 4RF furosemide [Lasix] 20 mg tablet 20 - 40 mg PO DAILY Qty: 180 3RF montelukast [Singulair] 10 mg tablet 10 mg PO DAILY Qty: 90 3RF Mounjaro 10 mg/0.5 mL pen injector 10 mg subcut QWEEK Qty: 2 5RF Hold Instructions: Home Medication placed on hold at Doctor's office (DME) Dexcom G6 Sensor Device See Rx Instructions .ROUTE .MEDSUPPLY Rx Instructions: As directed Mounjaro 12.5 mg/0.5 mL pen injector 12.5 mg subcut QWEEK MDD 12.5 mg 28 Days Qty: 2 3RF Rx Instructions: Inject subcutaneously once weekly. acetaminophen 500 MG tablet 2 tab PO PRN multivitamin 1 EACH capsule 1 ea PO DAILY (DME) Accu-Chek Leanne Plus test strp Strip 1 ea Miscellaneous DAILY Qty: 260 4RF Rx Instructions: Check blood sugar three times a day ([facility] Dexcom G6 Bead Supervisor Misc See Rx Instructions .ROUTE .MEDSUPPLY Qty: 1 0RF Rx Instructions: As directed ([facility]) Dexcom G6 Transmitter Device See Rx Instructions .ROUTE .MEDSUPPLY Qty: 1 0RF Rx Instructions: As directed irbesartan [Avapro] 150 mg tablet 150 mg PO DAILY Qty: 90 3RF meclizine 25 mg tablet 25 - 50 mg PO TID PRN (Reason: dizziness) Qty: 100 5RF Toujeo Max U-300 SoloStar 300 unit/mL (3 mL) insulin pen 120 - 160 unit SC TID Qty: 435 3RF Jardiance 25 mg tablet 25 mg PO QAM Qty: 90 3RF propranolol [Inderal LA] 60 mg capsule,extended release 24 hr 60 mg PO DAILY Qty: 90 3RF Lyumjev KwikPen U-200 Insulin 200 unit/mL (3 mL) insulin pen 40 - 60 unit subcut TID Qty: 81 3RF carboxymethylcellulose sodium [Refresh Plus] 30 EA dropperette 1 ea OU QID PRN PRNQty: 1 0RF mometasone 0.1 % cream 1 applic TP DAILY PRN Jardiance 25 mg tablet Mounjaro 12.5 mg/0.5 mL pen injector SUBCUT Patient Comments: INJECT 0.5ML UDNER THE SKIN ONCE WEEKLY Discharge Instructions Instructions: Chest Pain (ED), Cellulitis (ED) Additional Instructions: Call your primary care doctor today to schedule an appointment for within the next 48 hours to follow up on your visit here. At this visit discuss your: 1. Chest pressure 2. High bilirubin (liver enzyme) 3. Low platelets (blood clotting) Return to the emergency department for new or worsening symptoms including abodminal pain, new rash espcially purple spots, falls or head injuries, recurrent chest pain or trouble breathing, nausea/vomiting, or if you have any other concerns. Medical Decision Making 67yo M with hx of HTN, COPD, DM, HLD, DARIANA, no prior history of blood clots, presenting for right leg pain. Initially presented to [facility] for right leg pain; there mentioned he has had chest pressure this morning as well as some shortness of breath yesterday evening. Vital signs reassuring. Exam with erythema and tenderness to RLE consistent with possible cellulitis vs DVT. Not concerned for sepsis or nec fasc. Low suspicion for ACS based on history. EKG NSR, appropriate intervals, no ST segment or T wave abnormaliteis to suggest occlusive VT. Labs reviewed as below, CBC with mild anemia and signifcant thrombocytopenia with platelets of 58. Patient reports history of low platelets in the past, not sure why. No infectious symptoms, no skin findings to suggest DIC, overall very well appearing. CMP with Cr 1.5 (baseline 1.1-1.2), new hyperbilirubinemia at 3.4 from normal baseline. Denies any ingestions or new medications. Unclear etiology of this; no RUQ tenderness on exam, no abdominal pain, AST/ALT/Alkphos reassuring. I am not concerned for acute gallbladder pathology. Hyperbili and thrombocytopenia unlikely to be related to presenting symptoms and patient has reassuring vital signs; these are very significant incidental findings however are appropriate for close outpatient followup. Will treat cellulits with amox/clauv (some concern for pseudomonas given DM). ACS workup reassuring; moderate risk heart score at baseline due to age and risk factors and considered admission however patient would prefer outpatient followup which is reasonable Discussed extensively with patient and importance of close outpatient followup stressed. Discharged home; discharge instructions including return precautions were reviewed with patient who verablized understanding. Alll questions were answered and they are in full agreement with the plan. Imaging Data Radiologic Study: Imaging: X-Ray Radiologist's impression: No acute abnormality Radiologic Study #2: Imaging: Ultrasound Radiologist's impression: No evidence of DVT Lab Data Lab results reviewed: Yes I reviewed the patient's lab results. Labs: Laboratory Tests Range/Units 01/10/23 01/10/23 01/10/23 12:32 12:32 12:32 WBC (4.4-10.8) 10^3/uL 4.03 L RBC (4.36-5.78) 10^6/uL 3.73 L Hgb (13.5-17.5) g/dL 11.7 L Hct (40.0-50.0) % 33.6 L MCV (80-95) fL 90 MCH (27.0-33.0) pg 31.4 MCHC (32.0-36.0) % 34.8 RDW (11.8-14.1) % 14.6 H Plt Count (130-400) 10^3/uL 58 L MPV (8.0-11.0) fL 9.9 Immature Gran % 0.2 Neutrophils % 83.0 Lymphocytes % 6.5 Monocytes % 8.4 Eosinophils % 1.7 Basophils % 0.2 Nucleated RBC % (0.0-0.3) % 0.0 Absolute Neutrophils (1.2-6.7) 10^3/uL 3.34 Absolute Lymphocytes (1.2-3.4) 10^3/uL 0.26 L Absolute Monocytes (0.1-0.8) 10^3/uL 0.34 Absolute Eosinophils (0.0-0.7) 10^3/uL 0.07 Absolute Basophils (0.0-0.2) 10^3/uL 0.01 RBC Morphology Normal Sodium (136-145) mmol/L 138 Potassium (3.5-5.1) mmol/L 3.2 L Chloride (98-107) mmol/L 103 Carbon Dioxide (21.0-32.0) mmol/L 24.7 Anion Gap (3-11) mmol/L 10.3 BUN (7-18) mg/dL 21 H Creatinine (0.70-1.30) mg/dL 1.5 H Est GFR (CKD-EPI 2020) (mL/min/1.73m2) 50.40 Glucose (74-106) mg/dL 170 H Calcium (8.5-10.1) mg/dL 9.4 Magnesium (1.8-2.4) mg/dL 1.9 Total Bilirubin (0.2-1.0) mg/dL 3.4 H AST (15-37) U/L 40 H ALT (16-63) U/L 30 Alkaline Phosphatase (46-116) U/L 121 H Troponin I Cancelled < 50 NT-Pro-B Natriuret Pep Cancelled 114 Total Protein (6.4-8.2) g/dL 7.1 Albumin (3.4-5.0) g/dL 3.6 HPI General Mode of arrival: ambulatory. Date/Time Provider Initiated Documentation: 01/10/23 12:15. Limitations to Documentation: no limitations. Information obtained by: patient. HPI Narrative: 67yo M with hx of HTN, COPD, DM, HLD, DARIANA, no prior history of blood clots, presenting for right leg pain. Initially presented to [facility] for right leg pain; there mentioned he has had chest pressure this morning as well as some shortness of breath yesterday evening. Pressure is dull, substernal, and has no alleviating or aggravating factors. Not pleuritic or exertional, no positional. No shortness of breath currently. Otherwise in his usual state of health with no fevers, chills, rash, nausea, vomiting, abdominal pain, recent falls, numbness, tingling, weakness, LE edema, palpitations, syncope, presycnope, or other concerns. Related Data Home Medications Medication Instructions Recorded Confirmed acetaminophen 500 mg tablet 2 tab PO PRN 08/01/12 01/10/23 multivitamin 1 ea PO DAILY 08/01/12 01/10/23 carboxymethylcellulose sodium 0.5 1 ea OU QID PRN PRN ##1 08/21/15 01/10/23 % eye drops in a dropperette (Refresh Plus) blood sugar diagnostic (Accu-Chek #260 strips 04/02/19 01/10/23 Leanne Plus test strips) pen needle, diabetic 33 gauge x #550 ea 06/07/19 01/10/2307/08 (Comfort EZ Pen [place]) blood-glucose meter,continuous #1 ea 08/15/19 01/10/23 (Dexcom G6 Bead Supervisor) blood-glucose transmitter (Dexcom #1 ea 08/15/19 01/10/23 G6 Transmitter device) mometasone 0.1 % topical cream 1 applic topical DAILY PRN 07/24/20 01/10/23 triamcinolone acetonide 0.1 % 1 applic topical BID PRN ankle 01/07/21 01/10/23 topical cream rash #45 grams irbesartan 150 mg tablet (Avapro) 150 mg PO DAILY #90 tab-caps 03/25/22 01/10/23 furosemide 20 mg tablet (Lasix) 20 - 40 mg PO DAILY #180 tabs 04/07/22 01/10/23 meclizine 25 mg tablet 25 - 50 mg PO TID PRN dizziness 04/07/22 01/10/23 #100 tabs montelukast 10 mg tablet 10 mg PO DAILY #90 tabs 04/07/22 01/10/23 (Singulair) insulin glargine U-300 conc 300 120 - 160 unit (0.4 - 0.5333 mL) 06/07/22 01/10/23 unit/mL (3 mL) subcutaneous pen subcut TID #435 mL (Toujeo Max U-300 SoloStar) empagliflozin 25 mg tablet 25 mg PO QAM #90 tabs 07/13/22 01/10/23 (Jardiance) propranolol 60 mg capsule,24 60 mg PO DAILY #90 tab-caps 07/13/22 01/10/23 hr,extended release (Inderal LA) insulin lispro-aabc 200 unit/mL (3 40 - 60 unit (0.2 - 0.3 mL) subcut 07/20/22 01/10/23 mL) subcutaneous pen (Lyumjev TID #81 mL KwikPen U-200 Insulin) atorvastatin 40 mg tablet 40 mg PO DAILY #90 tab-caps 08/12/22 01/10/23 esomeprazole magnesium 40 mg 40 mg PO DAILY PRN dyspepsia #90 08/12/22 01/10/23 capsule,delayed release (Nexium) caps tirzepatide 10 mg/0.5 mL 10 mg (0.5 mL) subcut QWEEK #2 mL 09/08/22 01/10/23 subcutaneous pen injector (Mounjaro) Mounjaro 12.5 mg/0.5 mL 12.5 mg (0.5 mL) subcut QWEEK 28 12/01/22 01/10/23 subcutaneous pen injector days #2 mL (tirzepatide) blood-glucose sensor (Dexcom G6 12/15/22 01/10/23 Sensor device) empagliflozin 25 mg tablet mg 01/10/23 01/10/23 (Jardiance) tirzepatide 12.5 mg/0.5 mL mg subcut 01/10/23 01/10/23 subcutaneous pen injector (Mounjaro) Previous Rx's Medication Instructions Recorded carboxymethylcellulose sodium 0.5 1 ea OU QID PRN PRN ##1 08/21/15 % eye drops in a dropperette (Refresh Plus) blood sugar diagnostic (Accu-Chek #260 strips 04/02/19 Leanne Plus test strips) pen needle, diabetic 33 gauge x #550 ea 06/07/1907/08 (Comfort EZ Pen [place]) blood-glucose meter,continuous #1 ea 08/15/19 (Dexcom G6 Bead Supervisor) blood-glucose transmitter (Dexcom #1 ea 08/15/19 G6 Transmitter device) triamcinolone acetonide 0.1 % 1 applic topical BID PRN ankle 01/07/21 topical cream rash #45 grams irbesartan 150 mg tablet (Avapro) 150 mg PO DAILY #90 tab-caps 03/25/22 furosemide 20 mg tablet (Lasix) 20 - 40 mg PO DAILY #180 tabs 04/07/22 meclizine 25 mg tablet 25 - 50 mg PO TID PRN dizziness 04/07/22 #100 tabs montelukast 10 mg tablet 10 mg PO DAILY #90 tabs 04/07/22 (Singulair) insulin glargine U-300 conc 300 120 - 160 unit (0.4 - 0.5333 mL) 06/07/22 unit/mL (3 mL) subcutaneous pen subcut TID #435 mL (Toujeo Max U-300 SoloStar) empagliflozin 25 mg tablet 25 mg PO QAM #90 tabs 07/13/22 (Jardiance) propranolol 60 mg capsule,24 60 mg PO DAILY #90 tab-caps 07/13/22 hr,extended release (Inderal LA) insulin lispro-aabc 200 unit/mL (3 40 - 60 unit (0.2 - 0.3 mL) subcut 07/20/22 mL) subcutaneous pen (Lyumjev TID #81 mL KwikPen U-200 Insulin) atorvastatin 40 mg tablet 40 mg PO DAILY #90 tab-caps 08/12/22 esomeprazole magnesium 40 mg 40 mg PO DAILY PRN dyspepsia #90 08/12/22 capsule,delayed release (Nexium) caps tirzepatide 10 mg/0.5 mL 10 mg (0.5 mL) subcut QWEEK #2 mL 09/08/22 subcutaneous pen injector (Mounjaro) Mounjaro 12.5 mg/0.5 mL 12.5 mg (0.5 mL) subcut QWEEK 28 12/01/22 subcutaneous pen injector days #2 mL (tirzepatide) Allergies Allergy/AdvReac Type Severity Reaction Status Date / Time omega-3 acid ethyl esters AdvReac Severe FOUL Verified 01/10/23 11:46 [From Lovaza] TASTE, NAUSEA ondansetron AdvReac Intermediate nausea Verified 01/10/23 11:46 SEASONAL ALLERGIES Allergy Mild ITCHY Uncoded 01/10/23 11:46 WATERY EYES General Stated Complaint: GenMedical SHAR: 3 Review of Systems Narrative: see HPI PFSH All Active Problems (Updated 01/10/23 @ 15:10 by Harika Slater MD) Cellulitis (Acute) Chest pain (Acute) Purulent rhinorrhea (Acute) Olfactory aura (Acute) Nose congestion (Acute) Preventative health care (Acute) Tendinitis of long head of biceps brachii of left shoulder (Acute) Leg cramps (Acute) Nail dystrophy (Acute) Morbid obesity (Acute) Bursitis of left shoulder (Acute) Arthritis of left acromioclavicular joint (Acute) Arthritis of left shoulder region (Acute) 40mg subacromial corticosteroid injection 10/18/21; 06/08/22 Left lateral epicondylitis (Acute) Generalized pruritus (Acute) Chills (Acute) Leg pain, right (Acute) Tubular adenoma (Acute ~07/2020) Personal history of colonic polyps (Acute) Lumbar disc disease with radiculopathy (Chronic) unclear if related to his work, but certainly could be, 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 BARRERA Esophageal reflux (Acute) EGD 2002,2005, hiatal hernia Epistaxis (Acute 05/31/16) Fatty liver (Acute 05/03/16) u/s 09/04 Gastroesophageal reflux disease (Acute) EGD 2002,2005, hiatal hernia Hyperlipidemia (Acute 03/20/13) hypertriglyceridemia Increased body mass index (Acute) Obstructive sleep apnea syndrome (Acute) C-PAP Polyneuropathy in diabetes (Acute 04/09/14) Polyp of colon (Acute 03/24/05) 2005 hyperplastic 09/06/11 DR. HATFIELD; 2 TUBULAR ADENOMAS 03/15/15;BENIGN Rhinitis (Acute) Type II diabetes mellitus with neurological manifestations, uncontrolled (Acute) +Microalbumin Peripheral neuropathy Varicocele (Acute) LEFT Varicose veins of lower extremity (Acute) [facility] 07/06/11 RIGHT LOWER EXTREMITY VEIN STRIPPING Dysphagia (Acute) Endoscopy as soon as possible. No new medication. 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) Hypertension (Acute) Generalized osteoarthritis (Acute) Family history of malignant neoplasm of prostate (Acute) Cellulitis of leg (Acute) Cataract (Acute) Carpal tunnel syndrome (Acute) Diabetes mellitus (Chronic) Post-traumatic osteoarthritis of left knee (Acute) s/p L knee infection with L knee arthroscopy Durolane injection: 02/16/2019; 08/15/2018; 01/12/2018 BPPV (benign paroxysmal positional vertigo) (Acute) Adhesive capsulitis of right shoulder (Acute) Elevated serum GGT level (Acute) Arthritis of right acromioclavicular joint (Acute) Rotator cuff tear, right (Acute) Bursitis of right shoulder (Acute) Biceps tendinitis of right shoulder (Acute) Impingement syndrome of right shoulder (Acute) Edema of both lower extremities (Acute) Morbid obesity (Acute) Status post arthroscopy of right shoulder (Acute 03/30/19) Status post extensive debridement, arthroscopic biceps tenodesis, partial acromioplasty and rotator cuff repair involving subscapularis Scaly patch rash (Acute) ? seborrheic dermatitis Medical History Blindness of left eye COPD (chronic obstructive pulmonary disease) Diabetes type 2, controlled Diabetic neuropathy GERD (gastroesophageal reflux disease) Hiatal hernia History of colon polyps History of tobacco use Hyperlipidemia Hypertension Impingement syndrome of left shoulder Macular degeneration DARIANA (obstructive sleep apnea) Right shoulder tendonitis Rotator cuff impingement syndrome of right shoulder Septic arthritis of knee, left (06/28/13) Tendonitis of long head of biceps brachii of right shoulder Vestibular neuritis Surgical History Arthroplasty of knee (08/01/15) DR. GOLDSTEIN; LEFT KNEE Pt. states not replacement but arthroscopy Cholecystectomy EGD - MAC (12/19/13) [facility] H/O microdiscectomy 07/10/18; [facility]; LEFT L5-S1-kb History of arthroscopy of knee (08/01/15) History of colonoscopy with polypectomy (~07/25/20) History of esophagogastroduodenoscopy History of esophagogastroduodenoscopy (EGD) (~03/31/18) 03/31/18 Dr Barrera, erosive gastritis, proceed with US if no better in 3 weeks. History of esophagogastroduodenoscopy (EGD) (~07/25/20) History of vein stripping S/P surgery on nasal septum (~06/19/18) 06/19/18 [facility]; SEPTAL [employer]AC[employer] Status post arthroscopic surgery of left knee (06/28/13) Vasectomy VEIN STRIPPING LOWER RIGHT EXTREMITY Family History Mother Diabetes Kidney disease Father Colon cancer Hypertension Macular degeneration Brother Hypertension Sister Hypertension Thyroid disease Social History Smoking/Tobacco Use Status: Former Tobacco Use tobacco type: cigarettes Quit Date: 11/23/08 Tobacco: How many years used: 40 Smokeless tobacco user: other (Cigarettes) Quit status: quit date established Second Hand Exposure: Yes Smoking risk assessment performed?: Yes Alcohol Intake: current Alcohol Intake frequency: holidays/special occasions only Alcohol type: beer Drug use: Never Substance use type: does not use Caregiver/Support person: Yes Household members: spouse Housing: house Communication Needs: Blind Do you need help understanding health information?: Rarely current occupation: Retired Pets and animals: Yes Pets and animals: cat(s) and dog(s) Sexually active: No Do you think of yourself as: straight/heterosexual Current gender identity: male What is your relationship status?: How often do you talk on the phone with friends or family?: twice per week How often do you get together with friends or relatives?: once per week How often do you attend jainism or gnosticism services?: decline to answer Do you belong to any clubs or organized social groups?: no Panel score (0-1 are the most socially isolated patients): 2 What type of physical activity do you participate in: none Frequency: does not exercise [place]/Gnosticism: Anabaptism Special ch[place] needs: No Seatbelt use: always Drive intox or ride w/intox pick up driver: No Do you feel safe at home: Yes Do you feel safe in your relationship?: Yes Exam Narrative Exam Narrative: General: Alert, well appearing, well nourished, in no acute distress. Head: Normocephalic, atraumatic Neck: Trachea midline, Neck supple. ENT: MMM. No oropharygeal lesions or exudate. Cardiac: RRR, no murmurs appreciated Resp: No respiratory distress. CTAB. Abd: Soft, non-distended, nontender. No RUQ tenderness. : No suprapubic tenderness. No CVA tenderness. Extremities: No deformities. No peripheral edema. Neurologic: GCS 15. Moves all extremities freely against gravity Skin: 5cm area of warmth and erythema to right anterior-medial thigh. No skin breakdown. No other lesions or purpura. Course Vital Signs Vital signs: Vital Signs Temperature 36.6 C 01/10/23 11:42 Pulse 74 01/10/23 11:42 Respiratory Rate 18 01/10/23 11:42 Blood Pressure 112/62 01/10/23 11:42 Pulse Oximetry 100 01/10/23 11:42 Temperature 36.6 C 01/10/23 11:42 Temperature Source Skin 01/10/23 11:42 Pulse 74 01/10/23 11:42 Respiratory Rate 20 01/10/23 12:29 Respiratory Effort Normal 01/10/23 12:29 Respiratory Depth Normal 01/10/23 12:29 Respiratory Pattern Normal 01/10/23 12:29 Blood Pressure 112/62 01/10/23 11:42 Blood Pressure Position Sitting 01/10/23 11:42 Pulse Oximetry 100 01/10/23 11:42 Oxygen Delivery Method Room Air 01/10/23 11:42 Oxygen Flow Rate 0 01/10/23 11:42 Pain Level 4 01/10/23 11:42 Lab/Test Results Lab/Test Results: Laboratory Tests Range/Units 01/10/23 01/10/23 01/10/23 12:32 12:32 12:32 WBC (4.4-10.8) 10^3/uL 4.03 L RBC (4.36-5.78) 10^6/uL 3.73 L Hgb (13.5-17.5) g/dL 11.7 L Hct (40.0-50.0) % 33.6 L MCV (80-95) fL 90 MCH (27.0-33.0) pg 31.4 MCHC (32.0-36.0) % 34.8 RDW (11.8-14.1) % 14.6 H Plt Count (130-400) 10^3/uL 58 L MPV (8.0-11.0) fL 9.9 Immature Gran % 0.2 Neutrophils % 83.0 Lymphocytes % 6.5 Monocytes % 8.4 Eosinophils % 1.7 Basophils % 0.2 Nucleated RBC % (0.0-0.3) % 0.0 Absolute Neutrophils (1.2-6.7) 10^3/uL 3.34 Absolute Lymphocytes (1.2-3.4) 10^3/uL 0.26 L Absolute Monocytes (0.1-0.8) 10^3/uL 0.34 Absolute Eosinophils (0.0-0.7) 10^3/uL 0.07 Absolute Basophils (0.0-0.2) 10^3/uL 0.01 RBC Morphology Normal Sodium (136-145) mmol/L 138 Potassium (3.5-5.1) mmol/L 3.2 L Chloride (98-107) mmol/L 103 Carbon Dioxide (21.0-32.0) mmol/L 24.7 Anion Gap (3-11) mmol/L 10.3 BUN (7-18) mg/dL 21 H Creatinine (0.70-1.30) mg/dL 1.5 H Est GFR (CKD-EPI 2020) (mL/min/1.73m2) 50.40 Glucose (74-106) mg/dL 170 H Calcium (8.5-10.1) mg/dL 9.4 Magnesium (1.8-2.4) mg/dL 1.9 Total Bilirubin (0.2-1.0) mg/dL 3.4 H AST (15-37) U/L 40 H ALT (16-63) U/L 30 Alkaline Phosphatase (46-116) U/L 121 H Troponin I Cancelled < 50 NT-Pro-B Natriuret Pep Cancelled 114 Total Protein (6.4-8.2) g/dL 7.1 Albumin (3.4-5.0) g/dL 3.6
--- NOTE | 2023-01-10 15:06 | ED.PROG_ITS ---
Date of service: 01/10/23 Time of Service: 15:07 Medical Decision Making I received signout on this 67-year-old male with a history of diabetes and chest pain. He is pending a delta troponin. He is also had some groin redness concerning for cellulitis for which she is receiving outpatient antibiotic. If repeat troponin is negative he has been written for continued discharge instructions. 8:24 PM Patient was discharged by his original provider. I did not see this patient nor participate in his care in the ED. Discharge Plan Disposition Patient Disposition: Home Condition: Good Discharge Details Clinical Impression: Cellulitis, Chest pain Primary Care Provider: Naga Keys ED Provider: Harika Slater Home Meds and New Rx's Prescriptions: New amoxicillin-pot clavulanate 875-125 mg tablet 1 tab PO BID Qty: 14 0RF No Action (DME) pen needle, diabetic [Comfort EZ Pen Monroe] 33 gauge x 3/16 needle See Rx Instructions .ROUTE .MEDSUPPLY Qty: 550 3RF Rx Instructions: inject 6 times/day triamcinolone acetonide 0.1 % cream 1 applic Topical BID PRN (Reason: ankle rash) Qty: 45 1RF Rx Instructions: apply to rash on thighs and armpits as needed atorvastatin 40 mg tablet 40 mg PO DAILY Qty: 90 4RF esomeprazole magnesium [Nexium] 40 mg capsule,delayed release(DR/EC) 40 mg PO DAILY PRN (Reason: dyspepsia) Qty: 90 4RF furosemide [Lasix] 20 mg tablet 20 - 40 mg PO DAILY Qty: 180 3RF montelukast [Singulair] 10 mg tablet 10 mg PO DAILY Qty: 90 3RF Mounjaro 10 mg/0.5 mL pen injector 10 mg subcut QWEEK Qty: 2 5RF Hold Instructions: Home Medication placed on hold at Doctor's office (DME) [employer] G6 Sensor Device See Rx Instructions .ROUTE .MEDSUPPLY Rx Instructions: As directed Mounjaro 12.5 mg/0.5 mL pen injector 12.5 mg subcut QWEEK MDD 12.5 mg 28 Days Qty: 2 3RF Rx Instructions: Inject subcutaneously once weekly. acetaminophen 500 MG tablet 2 tab PO PRN multivitamin 1 EACH capsule 1 ea PO DAILY (DME) Accu-Chek Leanne Plus test strp Strip 1 ea Miscellaneous DAILY Qty: 260 4RF Rx Instructions: Check blood sugar three times a day (DME) Dexcom G6 Sales [employer]ing Misc See Rx Instructions .ROUTE .MEDSUPPLY Qty: 1 0RF Rx Instructions: As directed (DME) Dexcom G6 Transmitter Device See Rx Instructions .ROUTE .MEDSUPPLY Qty: 1 0RF Rx Instructions: As directed irbesartan [Avapro] 150 mg tablet 150 mg PO DAILY Qty: 90 3RF meclizine 25 mg tablet 25 - 50 mg PO TID PRN (Reason: dizziness) Qty: 100 5RF Toujeo Max U-300 SoloStar 300 unit/mL (3 mL) insulin pen 120 - 160 unit SC TID Qty: 435 3RF Jardiance 25 mg tablet 25 mg PO QAM Qty: 90 3RF propranolol [Inderal LA] 60 mg capsule,extended release 24 hr 60 mg PO DAILY Qty: 90 3RF Lyumjev KwikPen U-200 Insulin 200 unit/mL (3 mL) insulin pen 40 - 60 unit subcut TID Qty: 81 3RF carboxymethylcellulose sodium [Refresh Plus] 30 EA dropperette 1 ea OU QID PRN PRNQty: 1 0RF mometasone 0.1 % cream 1 applic TP DAILY PRN Jardiance 25 mg tablet Mounjaro 12.5 mg/0.5 mL pen injector SUBCUT Patient Comments: INJECT 0.5ML UDNER THE SKIN ONCE WEEKLY Discharge Instructions Instructions: Chest Pain (ED), Cellulitis (ED) Additional Instructions: Call your primary care doctor today to schedule an appointment for within the next 48 hours to follow up on your visit here. At this visit discuss your: 1. Chest pressure 2. High bilirubin (liver enzyme) 3. Low platelets (blood clotting) Return to the emergency department for new or worsening symptoms including abodminal pain, new rash espcially purple spots, falls or head injuries, recurrent chest pain or trouble breathing, nausea/vomiting, or if you have any other concerns. Discharge Data Discharge Date/Time-TO BE ENTERED AT DEPARTURE: 01/10/23 16:34
[2023-01-10] MEDS: Amoxicillin 875/Clav. 125 TAB PO (15:08)
[2023-01-10 16:03] LABS: Troponin I < 50 ng/L (<or=60)
== END 2023-01-10 16:34 | disposition home or self-care (01) ==
PROVIDERS: Emergency Provider Student in an Organized Health Care Education/Training Program; PCP Family Medicine
DX: L03.314 Cellulitis of groin (principal); R07.89 Other chest pain; E11.9 Type 2 diabetes mellitus without complications; J44.9 Chronic obstructive pulmonary disease, unspecified; I10 Essential (primary) hypertension; E80.6 Other disorders of bilirubin metabolism; R06.02 Shortness of breath
CPT/HCPCS: 80053; 93005; 99285; 71046; 83735; 83880; 84484; 85025; 93010; 93971; 99284

== ENCOUNTER → 2023-01-17 01:38 | Outpatient (CLI) | payer MEDICARE, OTHER, SELFPAY ==
--- NOTE | 2023-01-17 07:00 | DI.CT_ITS ---
Exam(s) CT ABDOMEN PELVIS WO EXAM: CT ABDOMEN PELVIS WO CLINICAL HISTORY: abd. distension/hx of cirrhosis,k74.60. TECHNIQUE: Imaging Protocol: Axial computed tomography images with coronal and sagittal reformatted images were created and reviewed CONTRAST MATERIAL: Intravenous: none Oral: None COMPARISON: CT CHEST FOR PULMONARY EMBOLUS from 08/19/[address] ABDOMEN PELVIS W from 06/06/2018 FINDINGS: VISUALIZED LUNG BASES: No nodules nor pleural effusions evident. ABDOMEN: There is no ascites. LIVER: Cirrhotic appearing liver again noted. On this noninfused study there is an abnormal 1.6 x 1. 7 cm hypodensity in the right hepatic lobe noted, not evident on the previous study and therefore pily picious for possible neoplasm. GALLBLADDER/BILIARY: Gallbladder again noted be surgically absent. CBD is not dilated. PANCREAS: Some haziness around the pancreatic head may be related to element of pancreatitis. There is no distinct fluid collection. Pancreatic duct is not dilated. There are no pancreatic calcificat ions. SPLEEN: Spleen is enlarged. Cephalocaudal length is 17 cm. There are no discrete focal lesions in t he spleen evident. ADRENALS: There are no significant adrenal masses. KIDNEYS:Benign cyst in the left kidney again noted. No other focal renal findings. No solid renal m asses. No calculi. No hydronephrosis.. ABDOMINAL AORTA: Abdominal aorta is not enlarged. LYMPH NODES: There is slightly enlarged retroperitoneal nodes. No para-aortic adenopathy. ABDOMINAL WALL: Symmetrical subcutaneous density over both sides of the anterior abdominal wall which are possibly related to cellulitis or multi injections. There is no drainable fluid collection. GI: There is no evidence of bowel obstruction, free air, nor abscess. PELVIS: LYMPH NODES: There is no intrapelvic nor inguinal adenopathy. GI: No evidence of appendicitis.There is sigmoid diverticulosis again evident. No obvious acute dive rticulitis. URINARY BLADDER: No calculi nor obvious masses evident REPRODUCTIVE: Prostate size normal. OSSEOUS: No significant osseous lesions. IMPRESSION: 1. Compared to prior contrast infused CT scan of March 2019 there is again noted a cirrhotic appea ring liver and splenomegaly. There is, however, now a 1.7 x 1.6 cm hypodensity in the right hepatic lobe evident, somewhat difficult to define on a noncontrast study but suspicious for neoplasm in the liver given and that it was not present on the prior contrast infused study. Recommend follow-up con trast infused multiphase CT study or MRI with contrast (although the patient may not be able to perfo rm adequate long breath holds for post contrast sequences and MRI). 2. There is some haziness in the mesentery but no true discernible ascites at this time. 3. Mild haziness around the pancreatic head region slightly more than elsewhere which may indicate an element of subtle pancreatitis. Pancreatic duct is not dilated. There are no pancreatic parenchyma l calcifications. 4. Extensive sigmoid diverticulosis again noted but no evidence of acute diverticulitis. RADIATION DOSE DELIVERED: 1,244.12mGy.cm Total DLP DATA REPOSITORY: All CT scans at this facility are submitted to the National Radiology Data Registry (NRDR) Dose Index Registry (DIR) with the [employer] (ACR). RADIATION OPTIMIZATION: All CT scans at this facility use at least one of these dose optimization te chniques: automated exposure control; mA and/or kV adjustment per patient size (includes targeted exa ms where dose is matched to clinical indication); or iterative reconstruction.
== END ==
PROVIDERS: PCP Family Medicine; Visit Provider Family Medicine
DX: R93.3 Abnormal findings on diagnostic imaging of other parts of digestive tract; R16.2 Hepatomegaly with splenomegaly, not elsewhere classified; K57.30 Diverticulosis of large intestine without perforation or abscess without bleeding
CPT/HCPCS: 74176

== ENCOUNTER → 2023-01-26 13:29 | Outpatient (BNVA) | payer MEDICARE, OTHER, SELFPAY | PROVIDERS: PCP Family Medicine; Referring Provider Family Medicine; Visit Provider Student in an Organized Health Care Education/Training Program | DX: Z47.89 Encounter for other orthopedic aftercare (principal); M75.22 Bicipital tendinitis, left shoulder ==

== ENCOUNTER 2023-02-01 13:47 | Outpatient (CLI) | payer MEDICARE, OTHER, SELFPAY ==
[2023-02-01 14:16] LABS: HCT 32.2 % (40.0-50.0); HGB 10.9 g/dL (13.5-17.5); MCH 30.9 pg (27.0-33.0); MCHC 33.9 % (32.0-36.0); MCV 91 fL (80-95); MPV 9.4 fL (8.0-11.0); Platelet Count 58 10^3/uL (130-400); RBC 3.53 10^6/uL (4.36-5.78); RDW 14.2 % (11.8-14.1); RDW-SD 47.2 fL
[2023-02-01 14:46] LABS: WBC 1.83 10^3/uL (4.4-10.8)
[2023-02-01 14:57] LABS: ALT 25 U/L (16-63); AST 35 U/L (15-37); Albumin 3.5 g/dL (3.4-5.0); Alkaline Phosphatase 131 U/L (46-116); BUN 13 mg/dL (7-18); Bilirubin, Total 1.5 mg/dL (0.2-1.0); CREATININE 1.1 mg/dL (0.70-1.30); Calcium 9.8 mg/dL (8.5-10.1); Chloride 108 mmol/L (98-107); Estimated GFR 73.12 (mL/min/1.73m2); Glucose 108 mg/dL (74-106); Potassium 4.8 mmol/L (3.5-5.1); Sodium 140 mmol/L (136-145); Total Protein 6.9 g/dL (6.4-8.2)
[2023-02-01 17:58] LABS: Abs Immature Grans 0.01 10^3/uL (0.0-0.06); Absolute Basophil Count 0.02 10^3/uL (0.0-0.2); Absolute Eosinophil Count 0.08 10^3/uL (0.0-0.7); Absolute Lymphocyte Count 0.35 10^3/uL (1.2-3.4); Absolute Monocyte Count 0.23 10^3/uL (0.1-0.8); Basophils % 1.1; Eosinophils % 4.5; Immature Grans % 0.6; Lymphocytes % 19.6; Monocytes % 12.8; Neutrophils % 61.4
[2023-02-04 14:37] LABS: Lab Add On Test DONE
== END 2023-02-01 13:48 | disposition home or self-care (01) ==
LOC: LBO 13:47
PROVIDERS: PCP Family Medicine; Visit Provider Family Medicine
DX: D69.6 Thrombocytopenia, unspecified; D72.819 Decreased white blood cell count, unspecified
CPT/HCPCS: 36415; 80053; 85027; 85007; 85025

== ENCOUNTER 2023-02-03 14:09 | Outpatient (CLI) | payer MEDICARE, OTHER, SELFPAY ==
[2023-02-03 12:50] LABS: Abs Immature Grans 0.01 10^3/uL (0.0-0.06); Absolute Basophil Count 0.01 10^3/uL (0.0-0.2); Absolute Eosinophil Count 0.09 10^3/uL (0.0-0.7); Absolute Lymphocyte Count 0.41 10^3/uL (1.2-3.4); Absolute Monocyte Count 0.29 10^3/uL (0.1-0.8); Absolute Neutrophil Count 1.27 10^3/uL (1.2-6.7); Basophils % 0.5; Eosinophils % 4.3; HCT 34.8 % (40.0-50.0); HGB 11.8 g/dL (13.5-17.5); Immature Grans % 0.5; Lymphocytes % 19.7; MCH 30.6 pg (27.0-33.0); MCHC 33.9 % (32.0-36.0); MCV 90 fL (80-95); MPV 9.4 fL (8.0-11.0); Monocytes % 13.9; Neutrophils % 61.1; RBC 3.86 10^6/uL (4.36-5.78); RDW 14.4 % (11.8-14.1); Reticulocyte 2.6 % (0.5-2.4); WBC 2.08 10^3/uL (4.4-10.8)
[2023-02-03 13:10] LABS: Platelet Count 62 10^3/uL (130-400)
[2023-02-03 13:11] LABS: Diff Comment PLT Morph Reviewed; RBC Morphology Normal
[2023-02-03 14:05] LABS: ALT 29 U/L (16-63); AST 34 U/L (15-37); Albumin 3.7 g/dL (3.4-5.0); Alkaline Phosphatase 140 U/L (46-116); Anion Gap 7.4 mmol/L (3-11); BUN 11 mg/dL (7-18); Bilirubin, Total 1.1 mg/dL (0.2-1.0); CO2 26.6 mmol/L (21.0-32.0); Calcium 9.9 mg/dL (8.5-10.1); Chloride 106 mmol/L (98-107); Estimated GFR 81.98 (mL/min/1.73m2); Ferritin 34 ng/mL (26-388); Glucose 124 mg/dL (74-106); Potassium 3.7 mmol/L (3.5-5.1); Sodium 140 mmol/L (136-145); Total Protein 7.6 g/dL (6.4-8.2); Vitamin B12 837 pg/mL (193-986)
[2023-02-03 14:08] LABS: Folate > 20.0 ng/mL (8.6-20.0)
[2023-02-04 09:22] LABS: IgA 395 mg/dL (85-499); IgG 1123 mg/dL (610-1616); IgM 130 mg/dL (35-242); Kappa Free Light Chain 4.18 mg/dL (0.33-1.94); Lambda Free Light Chain 2.71 mg/dL (0.57-2.63)
[2023-02-04 09:41] LABS: AFP Tumor Marker 4.7 ng/mL (<8.1)
[2023-02-04 12:49] LABS: Albumin 57.5 % (55.8-66.1); Albumin g/dL 4.1 g/dL (3.6-5.2); Total Protein 7.2 g/dL (6.3-8.2)
== END 2023-02-03 14:10 | disposition home or self-care (01) ==
LOC: LBO 14:09
PROVIDERS: PCP Family Medicine; Visit Provider Internal Medicine Hematology & Oncology
DX: D64.9 Anemia, unspecified (principal); D61.818 Other pancytopenia; R93.2 Abnormal findings on diagnostic imaging of liver and biliary tract
CPT/HCPCS: 36415; 80053; 82784; 82105; 82607; 82728; 82746; 83883; 84165; 85025; 85045

== ENCOUNTER → 2023-02-14 03:05 | Outpatient (CLI) | payer MEDICARE, OTHER, SELFPAY ==
--- NOTE | 2023-02-14 06:30 | DI.MRI_ITS ---
Exam(s) MR ABDOMEN WO/W EXAM: MR ABDOMEN WO/W CLINICAL HISTORY: assess rt lobe liver lesion seen on CT,K76.9 TECHNIQUE: Multiplanar multisequence MRI was performed with both pre and post contrast infused seque nces. Contrast injected sequences were performed following IV injection of 20 cc of Dotarem. COMPARISON: MR MR ABDOMEN WO/W from 08/21/[address] ABDOMEN PELVIS WO from 01/17/2023 FINDINGS: Limitation: Abundant motion artifact VISUALIZED LUNG BASES: No pleural effusions evident. There is small amount of perihepatic-perisplenic ascites. LIVER: Liver exhibit cirrhotic appearance. The recent recently described lesion on CT scan in the ri ght hepatic lobe is noted but somewhat difficult to assess because the amount of motion artifact here . Nevertheless, it does not exhibit signal characteristics of a typical cyst nor hemangioma and foll owing contrast injection does not behaving like a typical hemangioma. This was also not evident on p rior MRI scan of 08/21/2021. BILIARY: Gallbladder is again noted be surgically absent. The CBD is not dilated. PANCREAS: There is streaking/fluid signal around the pancreas consistent with pancreatitis, as seen o n recent CT scan. No distinct pseudocyst. Pancreatic duct is not dilated. There is no obvious panc reatic mass, solid nor cystic. SPLEEN: Splenomegaly is again noted. No intrasplenic lesions. ADRENALS: There are no significant adrenal masses. KIDNEYS: Benign cysts in left kidney again noted. No solid renal masses. No hydronephrosis. ABDOMINAL AORTA: Not enlarged and there is no significant para-aortic adenopathy. ANTERIOR ABDOMINAL WALL/GI: There is no evidence of significant anterior abdominal wall hernia in the field of view of this study.Is no evidence of obvious bowel obstruction. OSSEOUS: There are no lytic osseous lesions in the field of view of this study. IMPRESSION: 1. Peripancreatic streaking noted consistent with pancreatitis. There is no formed pseudocyst. Panc reatic duct is not dilated. No pancreatic mass evident. 2. Gallbladder surgically absent. CBD not dilated. 3. The recently described 1.7 x 1.6 cm lesion in the right hepatic lobe seen on recent CT scan is not ed on this study. Does not exhibit signal characteristics of a typical hemangioma nor of a typical c yst and therefore may be neoplastic. It was also not evident on prior MRI scan of 08/21/2021. 4. Given the amount of motion artifact here I feel that performing contrast infused multiphase CT sc an would be helpful, as CT scan would be less affected by motion artifact, particularly following con trast injection. DATA REPOSITORY:
[2023-02-14] MEDS: Normal Saline - Diluent 50 ML VIAL 25 ML IJ (08:25)
[2023-02-14] MEDS: Gadoterate meglumine 20 ML VIAL IVP (08:26)
== END ==
PROVIDERS: PCP Family Medicine; Visit Provider Family Medicine
DX: K76.9 Liver disease, unspecified (principal); J34.1 Cyst and mucocele of nose and nasal sinus; D16.4 Benign neoplasm of bones of skull and face; K85.90 Acute pancreatitis without necrosis or infection, unspecified
CPT/HCPCS: 74183

== ENCOUNTER → 2023-02-14 03:06 | Outpatient (CLI) | payer MEDICARE, OTHER, SELFPAY ==
--- NOTE | 2023-02-14 07:28 | DI.CT_ITS ---
Exam(s) CT SINUS WO EXAM: CT SINUS WO CLINICAL HISTORY: purulent rhinorrhea,NASAL CONGESTION,R09.81,J34.89. TECHNIQUE: Imaging Protocol: Axial computed tomography images with coronal and sagittal reformatted images were created and reviewed. No IV Contrast COMPARISON: No exams were available for comparison FINDINGS: MAXILLARY SINUSES: Left maxillary sinus unremarkable. There is mucosal thickening in the floor and roof of the right ma xillary sinus, probably post inflammatory retention cysts. There is no evidence of bone dehiscence. OSTIOMEATAL UNITS: Patent bilaterally ETHMOIDAL AIR CELLS: Well aerated. No mucosal thickening nor fluid levels. Small osteoma noted in r ight-sided ethmoidal air cells, this measuring 4 x 3 mm. SPHENOID SINUSES: Well aerated. No mucosal thickening nor fluid levels. FRONTAL SINUSES: Well aerated. No mucosal thickening nor fluid levels. NASAL SEPTUM AND TURBINATES:Nasal septum is relatively midline. There is a small nonobstructive left -sided nasal septal spur. There is no evidence of jamilah bullosa. IMPRESSION: 1. Post inflammatory retention cysts or polyps in the right maxillary sinus, not associated with flu id level nor bone dehiscence. Left maxillary sinus is clear. Small medial wall defect noted in the left maxillary sinus. Correlation with any prior endoscopic surgery recommended. 2. Small osteoma incidentally noted in a right ethmoidal air cell, this measuring 4 x 3 mm. RADIATION DOSE DELIVERED: Total DLP DATA REPOSITORY: All CT scans at this facility are submitted to the National Radiology Data Registry (NRDR) Dose Index Registry (DIR) with the [employer] (ACR). RADIATION OPTIMIZATION: All CT scans at this facility use at least one of these dose optimization te chniques: automated exposure control; mA and/or kV adjustment per patient size (includes targeted exa ms where dose is matched to clinical indication); or iterative reconstruction.
== END ==
PROVIDERS: PCP Family Medicine; Visit Provider Otolaryngology
DX: J34.89 Other specified disorders of nose and nasal sinuses (principal); R09.81 Nasal congestion
CPT/HCPCS: 74183; 70486

== ENCOUNTER 2023-03-03 02:11 | Outpatient (CLI) | payer MEDICARE, OTHER, SELFPAY ==
[2023-03-03 10:28] LABS: Absolute Lymphocyte Count 0.47 10^3/uL (1.2-3.4); HCT 35.8 % (40.0-50.0); Lymphocytes % 22.4; MCH 30.7 pg (27.0-33.0); MCHC 33.5 % (32.0-36.0); MCV 92 fL (80-95); MPV 9.9 fL (8.0-11.0); Monocytes % 14.3; Neutrophils % 57.1; RBC 3.91 10^6/uL (4.36-5.78); RDW 14.2 % (11.8-14.1); RDW-SD 47.7 fL
[2023-03-03 10:29] LABS: Absolute Basophil Count 0.03 10^3/uL (0.0-0.2); Basophils % 1.4; Diff Comment Diff Reviewed; Eosinophils % 4.8
[2023-03-03 10:30] LABS: Platelet Count 66 10^3/uL (130-400)
== END 2023-03-03 02:12 | disposition home or self-care (01) ==
LOC: LBO 02:12
PROVIDERS: PCP Family Medicine; Visit Provider Internal Medicine Hematology & Oncology
DX: D61.818 Other pancytopenia (principal)
CPT/HCPCS: 36415; 85025

== ENCOUNTER 2023-04-27 14:49 | Outpatient (CLI) | payer MEDICARE, OTHER, SELFPAY ==
--- NOTE | 2023-04-27 14:00 | DI.RAD_ITS ---
Exam(s) XR SHOULDER LT COMPLETE 2+V EXAM: XR SHOULDER LT COMPLETE 2+V CLINICAL HISTORY: evaluate shoulder. TECHNIQUE: 2D digital imaging was performed. Three views. COMPARISON: CR XR SHOULDER LT COMPLETE 2+V from 08/25/2021 FINDINGS: BONES: No acute fracture is present. No bony destructive lesion is seen. JOINTS: No dislocation present. The no significant inferior spurring at AC joint. Mild spurring at the glenoid. Glenohumeral joint space is maintained. Humeral head normally positioned. SOFT TISSUE: Normal. IMPRESSION: Unrem mild degenerative changes. DATA REPOSITORY: RADIATION DOSE DELIVERED:
== END 2023-04-27 14:50 | disposition home or self-care (01) ==
LOC: DIORS 14:49
PROVIDERS: PCP Family Medicine; Referring Provider Family Medicine; Visit Provider Student in an Organized Health Care Education/Training Program
DX: M75.22 Bicipital tendinitis, left shoulder (principal); M77.12 Lateral epicondylitis, left elbow
CPT/HCPCS: 20550; 73030; J1030

== ENCOUNTER 2023-05-09 05:31 | Outpatient (CLI) | payer MEDICARE, OTHER, SELFPAY ==
[2023-05-09 11:47] LABS: Abs Immature Grans 0.01 10^3/uL (0.0-0.06); Absolute Basophil Count 0.02 10^3/uL (0.0-0.2); Absolute Eosinophil Count 0.06 10^3/uL (0.0-0.7); Absolute Lymphocyte Count 0.43 10^3/uL (1.2-3.4); Absolute Monocyte Count 0.31 10^3/uL (0.1-0.8); Absolute Neutrophil Count 1.68 10^3/uL (1.2-6.7); Basophils % 0.8; Eosinophils % 2.4; HCT 37.9 % (40.0-50.0); HGB 13.1 g/dL (13.5-17.5); Immature Grans % 0.4; Lymphocytes % 17.1; MCH 30.5 pg (27.0-33.0); MCHC 34.6 % (32.0-36.0); MCV 88 fL (80-95); Monocytes % 12.4; Neutrophils % 66.9; RBC 4.29 10^6/uL (4.36-5.78); RDW 14.6 % (11.8-14.1); RDW-SD 46.5 fL; Reticulocyte 1.6 % (0.5-2.4); WBC 2.51 10^3/uL (4.4-10.8)
[2023-05-09 11:52] LABS: INR 1.2 (0.9-1.1); Prothrombin Time 11.9 sec (9.1-11.1)
[2023-05-09 11:59] LABS: Platelet Count 68 10^3/uL (130-400)
[2023-05-09 12:09] LABS: Magnesium 2.2 mg/dL (1.8-2.4)
[2023-05-09 12:40] LABS: ALT 37 U/L (16-63); AST 38 U/L (15-37); Albumin 3.9 g/dL (3.4-5.0); Alkaline Phosphatase 134 U/L (46-116); Anion Gap 7.9 mmol/L (3-11); BUN 12 mg/dL (7-18); Bilirubin, Total 1.2 mg/dL (0.2-1.0); CO2 27.1 mmol/L (21.0-32.0); CREATININE 1.1 mg/dL (0.70-1.30); Chloride 103 mmol/L (98-107); Estimated GFR 73.12 (mL/min/1.73m2); Ferritin 38 ng/mL (26-388); Glucose 120 mg/dL (74-106); Potassium 4.3 mmol/L (3.5-5.1); Sodium 138 mmol/L (136-145); Total Protein 7.6 g/dL (6.4-8.2); Vitamin B12 824 pg/mL (193-986)
[2023-05-09 12:42] LABS: Folate > 20.0 ng/mL (8.6-20.0)
[2023-05-10 09:41] LABS: IgA 390 mg/dL (85-499); IgG 1158 mg/dL (610-1616); IgM 125 mg/dL (35-242); Kappa Free Light Chain 3.83 mg/dL (0.33-1.94); Lambda Free Light Chain 2.46 mg/dL (0.57-2.63)
[2023-05-10 14:00] LABS: Albumin 58.4 % (55.8-66.1); Albumin g/dL 4.2 g/dL (3.6-5.2); Total Protein 7.2 g/dL (6.3-8.2)
[2023-05-11 09:17] LABS: AFP Tumor Marker 4.4 ng/mL (<8.1)
== END 2023-05-09 05:32 | disposition home or self-care (01) ==
LOC: LBO 05:31
PROVIDERS: Family Medicine; PCP Family Medicine; Visit Provider Internal Medicine
DX: Z00.00 Encounter for general adult medical examination without abnormal findings; D64.9 Anemia, unspecified; K74.69 Other cirrhosis of liver; R93.2 Abnormal findings on diagnostic imaging of liver and biliary tract
CPT/HCPCS: 36415; 80053; 82784; 82105; 82607; 82728; 82746; 83735; 83883; 84165; 85025; 85045; 85610

== ENCOUNTER → 2023-07-06 13:36 | Outpatient (BNVA) | payer MEDICARE, OTHER, SELFPAY | PROVIDERS: PCP Family Medicine; Referring Provider Family Medicine; Visit Provider Student in an Organized Health Care Education/Training Program | DX: M75.52 Bursitis of left shoulder (principal); M77.12 Lateral epicondylitis, left elbow; M75.22 Bicipital tendinitis, left shoulder | CPT/HCPCS: 99213 ==

== ENCOUNTER 2023-08-15 05:12 | Outpatient (CLI) | payer MEDICARE, OTHER, SELFPAY ==
[2023-08-15 13:18] LABS: Absolute Basophil Count 0.02 10^3/uL (0.0-0.2); Absolute Eosinophil Count 0.08 10^3/uL (0.0-0.7); Absolute Lymphocyte Count 0.34 10^3/uL (1.2-3.4); Absolute Monocyte Count 0.24 10^3/uL (0.1-0.8); Absolute Neutrophil Count 1.18 10^3/uL (1.2-6.7); Basophils % 1.1; Eosinophils % 4.3; HCT 35.8 % (40.0-50.0); Lymphocytes % 18.3; MCH 31.1 pg (27.0-33.0); MCHC 33.5 % (32.0-36.0); MCV 93 fL (80-95); MPV 9.3 fL (8.0-11.0); Monocytes % 12.9; Neutrophils % 63.4; RBC 3.86 10^6/uL (4.36-5.78)
[2023-08-15 14:38] LABS: Platelet Count 62 10^3/uL (130-400)
[2023-08-15 14:39] LABS: Diff Comment Diff Reviewed; RBC Morphology Normal
[2023-08-15 15:05] LABS: WBC 1.86 10^3/uL (4.4-10.8)
== END 2023-08-15 05:13 | disposition home or self-care (01) ==
LOC: LBO 05:12
PROVIDERS: PCP Family Medicine; Visit Provider Family Medicine
DX: D64.9 Anemia, unspecified (principal)
CPT/HCPCS: 36415; 85025

== ENCOUNTER 2023-08-18 21:31 | Outpatient (REF) | payer MEDICARE, OTHER, SELFPAY ==
[2023-08-18 20:25] LABS: COMMENT (LAB VIEW ONLY) 74.54 mg/dL; Microalb ug/mg Crea 5.5 ug/mg Cr
== END 2023-08-18 21:32 | disposition home or self-care (01) ==
LOC: LBN 21:31
PROVIDERS: PCP Family Medicine; Visit Provider Family Medicine
DX: E11.9 Type 2 diabetes mellitus without complications (principal)
CPT/HCPCS: 82043; 82570

== ENCOUNTER 2023-09-08 05:14 | Outpatient (CLI) | payer MEDICARE, OTHER, SELFPAY ==
[2023-09-08 10:22] LABS: Abs Immature Grans 0.01 10^3/uL (0.0-0.06); Absolute Basophil Count 0.02 10^3/uL (0.0-0.2); Absolute Lymphocyte Count 0.48 10^3/uL (1.2-3.4); Absolute Monocyte Count 0.31 10^3/uL (0.1-0.8); Basophils % 0.8 %; Eosinophils % 4.1 %; HCT 36.9 % (40.0-50.0); HGB 12.5 g/dL (13.5-17.5); Immature Grans % 0.4 %; Lymphocytes % 19.8 %; MCH 31.3 pg (27.0-33.0); MCHC 33.9 % (32.0-36.0); MCV 92 fL (80-95); MPV 10.3 fL (8.0-11.0); Monocytes % 12.8 %; Neutrophils % 62.1 %; RDW 14.3 % (11.8-14.1); RDW-SD 48.3 fL; WBC 2.42 10^3/uL (4.4-10.8)
[2023-09-08 11:02] LABS: Diff Comment Diff Reviewed; Platelet Count 53 10^3/uL (130-400); RBC Morphology Normal
== END 2023-09-08 05:15 | disposition home or self-care (01) ==
LOC: LBO 05:14
PROVIDERS: PCP Family Medicine; Visit Provider Family Medicine
DX: D64.9 Anemia, unspecified (principal)
CPT/HCPCS: 36415; 85025

== ENCOUNTER 2024-04-24 02:12 | Outpatient (CLI) | payer MEDICARE, OTHER, SELFPAY ==
[2024-04-24 11:11] LABS: Ferritin 47 ng/mL (26-388)
[2024-04-24 11:13] LABS: Iron 110 ug/dL (65-175); Total Iron Binding Capacity 309 ug/dL (250-450)
== END 2024-04-24 02:13 | disposition home or self-care (01) ==
LOC: LBO 02:12
PROVIDERS: PCP Family Medicine; Visit Provider Family Medicine
DX: C22.0 Liver cell carcinoma (principal)
CPT/HCPCS: 36415; 82728; 83540; 83550

== ENCOUNTER 2024-07-04 00:35 | Emergency (ER) | payer MEDICARE, OTHER, SELFPAY ==
[2024-07-04] VITALS (45 sets, daily range): BP systolic 68–152; BP diastolic 35–81; PULSE 69–86; RESP 13–76; TEMP 36.4–36.7; O2SAT 95–100
--- NOTE | 2024-07-04 00:30 | RT.EKG_ITS ---
APPROVED REPORT Exam: Resting ECG Reason for Exam: chest pain Patient Location: E HR:73 bpm ECG Measurements Heart Rate 73 AXIS MA [id number] P [id number] QRSd 102 QRS 42 QT 423 T 62 QTc 466 Conclusion Atrial fibrillation...V-rate 70- 74, irreg A-activity Low voltage, precordial leads...precordial leads <1.0mV Physician: Sinus, no stemi
--- NOTE | 2024-07-04 01:00 | DI.RAD_ITS ---
Exam(s) XR PORTABLE CHEST AP EXAM: XR PORTABLE CHEST AP CLINICAL HISTORY: chest pressure TECHNIQUE: 2D digital imaging was performed of the chest. One image was obtained. An AP view was ob tained. COMPARISON: CR XR CHEST 2V PA LATERAL from 01/10/2023 FINDINGS: MEDIASTINUM: Normal. HEART: Normal. PULMONARY VASCULATURE: Normal. LUNGS: There is a left basilar infiltrate. The right lung is clear. PLEURAL SPACE: There is blunting of the right costophrenic angle which may represent a small pleural effusion. No pneumothorax is identified. BONE:Within normal limits for the patient's age. OTHER FINDINGS:Normal. IMPRESSION: 1. Left lower lobe infiltrate. This may represent atelectasis or pneumonia. 2. Small right pleural effusion. DATA REPOSITORY: RADIATION DOSE DELIVERED:
[2024-07-04] MEDS: nitroGLYcerin 0.4 MG TAB SL (01:21)
[2024-07-04 01:27] LABS: Abs Immature Grans 0.01 10^3/uL (0.0-0.06); Absolute Basophil Count 0.02 10^3/uL (0.0-0.2); Absolute Eosinophil Count 0.14 10^3/uL (0.0-0.7); Absolute Lymphocyte Count 0.28 10^3/uL (1.2-3.4); Absolute Monocyte Count 0.35 10^3/uL (0.1-0.8); Absolute Neutrophil Count 3.77 10^3/uL (1.2-6.7); Basophils % 0.4 %; Eosinophils % 3.1 %; HCT 37.6 % (40.0-50.0); HGB 12.8 g/dL (13.5-17.5); Immature Grans % 0.2 %; Lymphocytes % 6.1 %; MCH 31.6 pg (27.0-33.0); MCV 93 fL (80-95); MPV 9.8 fL (8.0-11.0); Monocytes % 7.7 %; Neutrophils % 82.5 %; RBC 4.05 10^6/uL (4.36-5.78); RDW 13.7 % (11.8-14.1); WBC 4.57 10^3/uL (4.4-10.8)
[2024-07-04 01:28] LABS: Platelet Count 51 10^3/uL (130-400)
[2024-07-04 01:37] LABS: Diff Comment PLT Morph Reviewed; RBC Morphology Normal
[2024-07-04 01:39] LABS: PTT Activated 28.1 sec (20.6-30.2); Prothrombin Time 12.4 sec (9.1-11.1)
[2024-07-04 01:42] LABS: INR 1.2 (0.9-1.1)
[2024-07-04 01:48] LABS: ALT 59 U/L (16-63); AST 109 U/L (15-37); Albumin 3.5 g/dL (3.4-5.0); Alkaline Phosphatase 303 U/L (46-116); Anion Gap 10.4 mmol/L (3-11); BUN 13 mg/dL (7-18); Bilirubin, Total 1.8 mg/dL (0.2-1.0); CO2 23.6 mmol/L (21.0-32.0); CREATININE 1.2 mg/dL (0.70-1.30); Calcium 9.3 mg/dL (8.5-10.1); Chloride 110 mmol/L (98-107); Estimated GFR 65.46 (mL/min/1.73m2); Glucose 162 mg/dL (74-106); NT-proBNP 24 pg/mL (<300); Potassium 3.8 mmol/L (3.5-5.1); Sodium 144 mmol/L (136-145); Troponin I 8 ng/L (<or=76)
--- NOTE | 2024-07-04 01:57 | ED.GENADUL_ITS ---
Discharge Plan Disposition Patient Disposition: Home Condition: Good Discharge Details Clinical Impression: Transient hypotension Primary Care Provider: Naga Keys ED Provider: Enrique Ayala Home Meds and New Rx's Prescriptions: No Action (DME) pen needle, diabetic [Comfort EZ Pen [place]] 33 gauge x 3/16 needle See Rx Instructions .ROUTE .MEDSUPPLY Qty: 550 3RF Rx Instructions: inject 6 times/day triamcinolone acetonide 0.1 % cream 1 applic Topical BID PRN (Reason: ankle rash) Qty: 45 1RF Rx Instructions: apply to rash on thighs and armpits as needed triamcinolone acetonide 0.1 % cream 1 applic topical BID PRN (Reason: groin rash) Qty: 30 2RF (DME) Dexcom G7 Sensor Device See Rx Instructions .ROUTE Rx Instructions: Monitor BG (DME) Dexcom G7 Joy Operator Helper Misc See Rx Instructions .ROUTE Rx Instructions: Monitor BG magnesium 250 mg tablet 250 mg PO DAILY acetaminophen 500 mg capsule 1,000 mg PO BID meclizine [Dramamine (meclizine)] 25 mg tablet 25 mg PO DAILY Rx Instructions: Takes 1 daily and takes another PRN multivitamin 1 EACH capsule 1 ea PO DAILY (DME) Accu-Chek Leanne Plus test strp Strip 1 ea Miscellaneous DAILY Qty: 260 4RF Rx Instructions: Check blood sugar three times a day atorvastatin 40 mg tablet 40 mg PO DAILY Qty: 90 4RF Jardiance 25 mg tablet 25 mg PO QAM Qty: 90 3RF esomeprazole magnesium [Nexium] 40 mg capsule,delayed release(DR/EC) 40 mg PO DAILY PRN (Reason: dyspepsia) Qty: 90 4RF furosemide [Lasix] 20 mg tablet 20 - 40 mg PO DAILY Qty: 180 3RF insulin glargine U-300 conc [Toujeo Max U-300 SoloStar] 300 unit/mL (3 mL) insulin pen 120 - 160 unit SC TID Qty: 435 3RF Lyumjev KwikPen U-200 Insulin 200 unit/mL (3 mL) insulin pen 40 - 60 unit subcut TID Qty: 81 3RF irbesartan [Avapro] 150 mg tablet 150 mg PO DAILY Qty: 90 3RF montelukast [Singulair] 10 mg tablet 10 mg PO DAILY Qty: 90 3RF propranolol [Inderal LA] 60 mg capsule,extended release 24 hr 60 mg PO DAILY Qty: 90 3RF tirzepatide 15 mg/0.5 mL pen injector 15 mg subcut QWEEK MDD 15 28 Days Qty: 2 12RF Rx Instructions: Inject 15 mg subcutaneously once weekly as directed. tizanidine 2 mg tablet 2 mg PO TID PRN (Reason: muscle spasticity) Qty: 30 2RF mometasone 0.1 % cream 1 applic TP DAILY PRN Discharge Instructions Instructions: Vasovagal Response Additional Instructions: At this time your workup has returned reassuring. Your cardiac/heart markers are normal. Your chest x-ray shows no significant abnormality, your blood levels are stable. Please follow-up closely with your primary care provider for reassessment. Drink plenty fluids and stay well-hydrated. If you notice any worsening of your symptoms, or any new symptoms such as vomiting, diarrhea, fever, chills, shortness of breath, chest pain, numbness, weakness, or fainting , please return immediately to the emergency department for reevaluation. Please follow up with your primary care provider as soon as possible for reassessment and reevaluation. As always, it was a pleasure participating in your medical care today. Referrals: Naga Keys MD [Primary Care Provider] - [facility] General Date/Time Provider Initiated Documentation: 07/04/24 01:04 . [facility] Narrative: This is a pleasant 68-year-old male with a past medical history of hypertension, COPD, high cholesterol, type 2 diabetes, DANIELS, liver lesions, who presents today for evaluation of feeling off. Patient states that he was sitting down and resting this evening when suddenly he felt nauseous, developed chest pressure, broke out into a sweat, felt lightheaded. His who is a nurse took his blood pressure and noted that he was hypotensive. He states that sometimes he gets like this when he pushes too hard for a bowel movement, but he never has chest pressure. EMS was called, and his hypotension was confirmed. On their way transitioning to the emergency department the patient's symptoms notably resolved, and he felt much better. Currently he admits to a mild chest pressure sensation which she describes as a 5 pound weight on his chest. No tearing or ripping sensation. No pleuritic chest pain. No recent shortness of breath arm neck or shoulder discomfort. He denies any history of cardiac disease or stroke. He denies any medication changes. No other complaints at this time. Related Data Home Medications ?Medication ?Instructions ?Recorded ?Confirmed multivitamin 1 ea PO DAILY 08/01/12 07/04/24 blood sugar diagnostic (Accu-Chek #260 strips 04/02/19 07/04/24 Leanne Plus test strips) pen needle, diabetic 33 gauge x #550 ea 06/07/19 07/04/2407/08 (Comfort EZ Pen [place]) mometasone 0.1 % topical cream 1 applic topical DAILY PRN 07/24/20 07/04/24 triamcinolone acetonide 0.1 % 1 applic topical BID PRN ankle 01/07/21 07/04/24 topical cream rash #45 grams triamcinolone acetonide 0.1 % 1 applic topical BID PRN groin 01/11/23 07/04/24 topical cream rash #30 grams magnesium 250 mg tablet 250 mg PO DAILY 07/06/23 07/04/24 acetaminophen 500 mg capsule 1,000 mg PO BID 12/01/23 07/04/24 meclizine 25 mg tablet (Dramamine 25 mg PO DAILY 12/01/23 07/04/24 (meclizine)) atorvastatin 40 mg tablet 40 mg PO DAILY #90 tab-caps 05/03/24 07/04/24 empagliflozin 25 mg tablet 25 mg PO QAM #90 tabs 05/03/24 07/04/24 (Jardiance) esomeprazole magnesium 40 mg 40 mg PO DAILY PRN dyspepsia #90 05/03/24 07/04/24 capsule,delayed release (Nexium) caps furosemide 20 mg tablet (Lasix) 20 - 40 mg (1 - 2 x 20 mg) PO 05/03/24 07/04/24 DAILY #180 tabs insulin glargine U-300 conc 300 120 - 160 unit (0.4 - 0.5333 mL) 05/03/24 07/04/24 unit/mL (3 mL) subcutaneous pen subcut TID #435 mL (Toujeo Max U-300 SoloStar) insulin lispro-aabc 200 unit/mL (3 40 - 60 unit (0.2 - 0.3 mL) subcut 05/03/24 07/04/24 mL) subcutaneous pen (Lyumjev TID #81 mL KwikPen U-200 Insulin) irbesartan 150 mg tablet (Avapro) 150 mg PO DAILY #90 tab-caps 05/03/24 07/04/24 montelukast 10 mg tablet 10 mg PO DAILY #90 tabs 05/03/24 07/04/24 (Singulair) propranolol 60 mg capsule,24 60 mg PO DAILY #90 tab-caps 05/03/24 07/04/24 hr,extended release (Inderal LA) tirzepatide 15 mg/0.5 mL 15 mg (0.5 mL) subcut QWEEK 28 05/07/24 07/04/24 subcutaneous pen injector days #2 mL blood-glucose meter,continuous 06/20/24 07/04/24 (Dexcom G7 Joy Operator Helper) blood-glucose sensor (Dexcom G7 06/20/24 07/04/24 Sensor device) tizanidine 2 mg tablet 2 mg PO TID PRN muscle spasticity 07/02/24 07/04/24 #30 tabs Previous Rx's ?Medication ?Instructions ?Recorded blood sugar diagnostic (Accu-Chek #260 strips 04/02/19 Leanne Plus test strips) pen needle, diabetic 33 gauge x #550 ea 06/07/1907/08 (Comfort EZ Pen [place]) triamcinolone acetonide 0.1 % 1 applic topical BID PRN ankle 01/07/21 topical cream rash #45 grams triamcinolone acetonide 0.1 % 1 applic topical BID PRN groin 01/11/23 topical cream rash #30 grams atorvastatin 40 mg tablet 40 mg PO DAILY #90 tab-caps 05/03/24 empagliflozin 25 mg tablet 25 mg PO QAM #90 tabs 05/03/24 (Jardiance) esomeprazole magnesium 40 mg 40 mg PO DAILY PRN dyspepsia #90 05/03/24 capsule,delayed release (Nexium) caps furosemide 20 mg tablet (Lasix) 20 - 40 mg (1 - 2 x 20 mg) PO 05/03/24 DAILY #180 tabs insulin glargine U-300 conc 300 120 - 160 unit (0.4 - 0.5333 mL) 05/03/24 unit/mL (3 mL) subcutaneous pen subcut TID #435 mL (Toujeo Max U-300 SoloStar) insulin lispro-aabc 200 unit/mL (3 40 - 60 unit (0.2 - 0.3 mL) subcut 05/03/24 mL) subcutaneous pen (Lyumjev TID #81 mL KwikPen U-200 Insulin) irbesartan 150 mg tablet (Avapro) 150 mg PO DAILY #90 tab-caps 05/03/24 montelukast 10 mg tablet 10 mg PO DAILY #90 tabs 05/03/24 (Singulair) propranolol 60 mg capsule,24 60 mg PO DAILY #90 tab-caps 05/03/24 hr,extended release (Inderal LA) tirzepatide 15 mg/0.5 mL 15 mg (0.5 mL) subcut QWEEK 28 05/07/24 subcutaneous pen injector days #2 mL tizanidine 2 mg tablet 2 mg PO TID PRN muscle spasticity 07/02/24 #30 tabs Allergies Allergy/AdvReac Type Severity Reaction Status Date / Time omega-3 acid ethyl esters AdvReac Severe FOUL Verified 07/04/24 00:54 (From [facility]) TASTE, NAUSEA ondansetron AdvReac Intermediate nausea Verified 07/04/24 00:54 SEASONAL ALLERGIES Allergy Mild ITCHY Uncoded 07/04/24 00:54 WATERY EYES General Stated Complaint: Nausea/Vomit/Diar SHAR: 3 Exam Narrative Exam Narrative: 1.Const: Well-nourished, Well-developed, appearing stated age 2.Eyes: PERRL, no conjunctival injection, and symmetrical lids. 3.ENT: Atraumatic external nose and ears. Moist MM. Neck: Symmetric, trachea midline, No thyromegaly. 4.CVS: +S1/S2, Peripheral pulses 2+ and equal in all extremities. Brisk capillary refill in all extremities. 5.RESP: Unlabored respiratory effort. Clear to auscultation bilaterally. No wheezes rales or rhonchi 6.GI: Soft, Nontender/Nondistended, No hepatosplenomegaly. No guarding or rebound. 7.MSK: Normocephalic/Atraumatic, Extremities w/o deformity or ttp No cyanosis or clubbing, Normal movement of all extremities 8.Skin: Warm, Dry. No rashes or lesions. 9.Neuro: gambreler II-XII grossly intact. Sensation grossly intact, no focal neurologic deficits. 10.Psych: (AAO) x3. Appropriate mood and affect Course Vital Signs Vital signs: Vital Signs Temperature 36.7 C 07/04/24 00:45 Pulse 72 07/04/24 00:45 Respiratory Rate 76 H 07/04/24 00:45 Blood Pressure 141/64 H 07/04/24 00:45 Pulse Oximetry 98 07/04/24 00:45 Temperature 36.7 C 07/04/24 00:45 Temperature Source Temporal Artery Scan 07/04/24 00:45 Pulse 69 07/04/24 01:35 Respiratory Rate 19 07/04/24 01:35 Blood Pressure 68/35 L 07/04/24 01:32 Pulse Oximetry 100 07/04/24 01:35 Oxygen Delivery Method Room Air 07/04/24 00:45 Oxygen Flow Rate 0 07/04/24 00:45 Pain Level 0 07/04/24 00:45 Lab/Test Results Lab/Test Results: Laboratory Tests Range/Units 07/04/24 01:17 WBC (4.4-10.8) 10^3/uL 4.57 RBC (4.36-5.78) 10^6/uL 4.05 L Hgb (13.5-17.5) g/dL 12.8 L Hct (40.0-50.0) % 37.6 L MCV (80-95) fL 93 MCH (27.0-33.0) pg 31.6 MCHC (32.0-36.0) % 34.0 RDW (11.8-14.1) % 13.7 Plt Count (130-400) 10^3/uL 51 L MPV (8.0-11.0) fL 9.8 Immature Gran % % 0.2 Neutrophils % % 82.5 Lymphocytes % % 6.1 Monocytes % % 7.7 Eosinophils % % 3.1 Basophils % % 0.4 Nucleated RBC % (0.0-0.3) % 0.0 Absolute Neutrophils (1.2-6.7) 10^3/uL 3.77 Absolute Lymphocytes (1.2-3.4) 10^3/uL 0.28 L Absolute Monocytes (0.1-0.8) 10^3/uL 0.35 Absolute Eosinophils (0.0-0.7) 10^3/uL 0.14 Absolute Basophils (0.0-0.2) 10^3/uL 0.02 RBC Morphology Normal PT (9.1-11.1) sec 12.4 H INR (0.9-1.1) 1.2 H APTT (20.6-30.2) sec 28.1 Sodium (136-145) mmol/L 144 Potassium (3.5-5.1) mmol/L 3.8 Chloride (98-107) mmol/L 110 H Carbon Dioxide (21.0-32.0) mmol/L 23.6 Anion Gap (3-11) mmol/L 10.4 BUN (7-18) mg/dL 13 Creatinine (0.70-1.30) mg/dL 1.2 Est GFR (CKD-EPI 2020) (mL/min/1.73m2) 65.46 Glucose (74-106) mg/dL 162 H Calcium (8.5-10.1) mg/dL 9.3 Total Bilirubin (0.2-1.0) mg/dL 1.8 H AST (15-37) U/L 109 H ALT (16-63) U/L 59 Alkaline Phosphatase (46-116) U/L 303 H Troponin I (<or=76) ng/L 8 NT-Pro-B Natriuret Pep (<300) pg/mL 24 Total Protein (6.4-8.2) g/dL 7.0 Albumin (3.4-5.0) g/dL 3.5 Medical Decision Making This is a pleasant 68-year-old male with a past medical history of hypertension, COPD, high cholesterol, type 2 diabetes, DANIELS, liver lesions, who presents today for evaluation of feeling off. Patient states that he was sitting down and resting this evening when suddenly he felt nauseous, developed chest pressure, broke out into a sweat, felt lightheaded. His who is a nurse took his blood pressure and noted that he was hypotensive. He states that sometimes he gets like this when he pushes too hard for a bowel movement, but he never has chest pressure. EMS was called, and his hypotension was confirmed. On their way transitioning to the emergency department the patient's symptoms notably resolved, and he felt much better. Currently he admits to a mild chest pressure sensation which she describes as a 5 pound weight on his chest. No tearing or ripping sensation. No pleuritic chest pain. No recent shortness of breath arm neck or shoulder discomfort. He denies any history of cardiac disease or stroke. He denies any medication changes. No other complaints at this time. Exam demonstrates well-appearing male, no significant abnormality on assessment. Blood pressure at this time is normal, however with his symptoms, I am certainly concerned for a potential cardiac event. He does not appear overly dehydrated at this time. Dysrhythmia is also of concern. EKG shows sinus rhythm with no STEMI. We will give single dose of sublingual nitroglycerin to see if this relieves his chest pressure, we will evaluate for cardiac etiologies, will get a chest x-ray, monitor closely and reassess. 1:30 AM Patient was given a sublingual nitroglycerin and his chest pressure improved minimally, however his blood pressure also went down to the 70s systolic. He was started on a small 500 cc bolus and had transient improvement with this. Patient remained stable. Pending laboratory workup. 3:41 AM Laboratory workup is returned, no white count bandemia or left shift. Hemoglobin is 12.8, platelets stable at baseline at 51. Electrolytes normal, renal function normal. Bilirubin slightly high at 1.8, however this reflects a chronic trend for the patient. Initial, 1 hour, and 3-hour troponin are normal. proBNP normal. Patient states that he only had a mild improvement with the nitroglycerin, but later he had a notable burp and this completely resolved his symptoms immediately. Patient feels much better at this time, and is symptom- free. He feels well and would like to go home. He shows no evidence of vagal event at this time and remains hemodynamically stable. With no evidence of ACS, dissection, hemodynamic instability, severe pneumonia or anemia, I do not see any evidence of acute life-threatening etiology, I do feel that the patient is stable for discharge. Will discharge with close follow-up with PCP on an outpatient basis. Discussed red flags for which to return. I have extensively reviewed the treatment plan and discharge instructions with the patient. I have addressed all patient concerns at this time. The patient was made aware of what symptoms to monitor for that would warrant a return to the emergency department. Discussed the plan with the patient, they demonstrate verbal understanding and agreement with our assessment and plan at this time. The documentation in this chart was dictated using [employer] dictation software. Please excuse any dictation errors. FINDINGS: Lungs: Unremarkable. No consolidation. Pleural spaces: Blunting of the right costophrenic angle which may be related to tiny pleural effusion or pleural thickening.No pneumothorax. Heart/Mediastinum: Unremarkable. No cardiomegaly. Bones/joints: Age related osseous changes. IMPRESSION: No acute findings. Thank you for allowing us to participate in the care of your patient. Dictated and Authenticated by: Harika Johnson MD 07/04/2024 4:39 AM Eastern Time ([place] & [place]) Quality:SDOH Health Related Social Needs: No Data to Display PFSH All Active Problems (Updated 07/04/24 @ 03:43 by Enrique Ayala DO) Transient hypotension (Acute) Hepatocellular carcinoma (Acute) Folliculitis (Acute) Low back pain (Acute) Chronic rhinitis (Acute) Pancytopenia, acquired (Acute) Leukopenia (Acute) Thrombocytopenia (Chronic) Liver lesion, right lobe (Acute) Purulent rhinorrhea (Acute) Olfactory aura (Acute) Nose congestion (Acute) Preventative health care (Acute) Tendinitis of long head of biceps brachii of left shoulder (Acute) Leg cramps (Acute) Nail dystrophy (Acute) Morbid obesity (Acute) Bursitis of left shoulder (Acute) Arthritis of left acromioclavicular joint (Acute) Arthritis of left shoulder region (Acute) 40mg subacromial corticosteroid injection 10/18/21; 06/08/22 Left lateral epicondylitis (Acute) Generalized pruritus (Acute) Chills (Acute) Leg pain, right (Acute) Tubular adenoma (Acute ~07/2020) Personal history of colonic polyps (Acute) Lumbar disc disease with radiculopathy (Chronic) unclear if related to his work, but certainly could be, 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 BARRERA Esophageal reflux (Acute) EGD 2002,2005, hiatal hernia Epistaxis (Acute 05/31/16) Fatty liver (Acute 05/03/16) u/s 09/04 Gastroesophageal reflux disease (Acute) EGD 2002,2005, hiatal hernia Hyperlipidemia (Acute 03/20/13) hypertriglyceridemia Increased body mass index (Acute) Obstructive sleep apnea syndrome (Acute) C-PAP Polyneuropathy in diabetes (Acute 04/09/14) Polyp of colon (Acute 03/24/05) 2005 hyperplastic 09/06/11 DR. HATFIELD; 2 TUBULAR ADENOMAS 03/15/15;BENIGN Rhinitis (Acute) Type II diabetes mellitus with neurological manifestations, uncontrolled (Acute) +Microalbumin Peripheral neuropathy Varicocele (Acute) LEFT [place]icose veins of lower [place] (Acute[place] [facility] [place] RIGHT LOWER EXTREMITY VEIN STRIPPING Dysphagia (Acute) Endoscopy as soon as possible. No new medication. 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) Hypertension (Acute) Generalized osteoarthritis (Acute) Family history of malignant neoplasm of prostate (Acute) Cellulitis of leg (Acute) Cataract (Acute) Carpal tunnel syndrome (Acute) Diabetes mellitus (Chronic) Post-traumatic osteoarthritis of left knee (Acute) s/p L knee infection with L knee arthroscopy Durolane injection: 02/16/2019; 08/15/2018; 01/12/2018 BPPV (benign paroxysmal positional vertigo) (Acute) Adhesive capsulitis of right shoulder (Acute) Elevated serum GGT level (Acute) Arthritis of right acromioclavicular joint (Acute) Rotator cuff tear, right (Acute) Bursitis of right shoulder (Acute) Biceps tendinitis of right shoulder (Acute) Impingement syndrome of right shoulder (Acute) Edema of both lower extremities (Acute) Morbid obesity (Acute) Status post arthroscopy of right shoulder (Acute 03/30/19) Status post extensive debridement, arthroscopic biceps tenodesis, partial acromioplasty and rotator cuff repair involving subscapularis Scaly patch rash (Acute) ? seborrheic dermatitis Medical History (Updated 07/04/24 @ 03:43 by Enrique Ayala DO) Vestibular neuritis Impingement syndrome of left shoulder Tendonitis of long head of biceps brachii of right shoulder Rotator cuff impingement syndrome of right shoulder History of tobacco use Blindness of left eye Right shoulder tendonitis Hiatal hernia Macular degeneration Hypertension GERD (gastroesophageal reflux disease) History of colon polyps COPD (chronic obstructive pulmonary disease) Hyperlipidemia Diabetic neuropathy DARIANA (obstructive sleep apnea) Diabetes type 2, controlled Septic arthritis of knee, left (06/28/13) Surgical History History of esophagogastroduodenoscopy (EGD) (~07/25/20) History of colonoscopy with polypectomy (~07/25/20) History of arthroscopy of knee (08/01/15) History of esophagogastroduodenoscopy History of vein stripping H/[place]disce[place] 07[place]10/18[place] [facility] [place] LEFT L5-S1-kb S/P surgery on nasal septum (~06/19/18) [place] [facility] [place] SEPTAL BUTTON PLACEMENT History of esophagogastroduodenoscopy (EGD) (~03/31/18) 03/31/18 Dr Barrera, erosive gastritis, proceed with US if no better in 3 weeks. Vasectomy VEIN STRIPPING LOWER RIGHT EXTREMITY EGD - MAC (12/19/13) [facility] [place]olecystectomy Arthroplasty of knee (08/01/15) DR. GOLDSTEIN; LEFT KNEE Pt. states not replacement but arthroscopy Status post arthroscopic surgery of left knee (06/28/13) Family History Mother Diabetes Kidney disease Father Colon cancer Hypertension Macular degeneration Brother Hypertension Sister Hypertension Thyroid disease Social History (Updated 09/05/23 @ 12:44 by Dotty Freitas) Smoking/Tobacco Use Status: Former Tobacco Use tobacco type: cigarettes Quit Date: 11/23/08 Tobacco: How many years used: 40 Smokeless tobacco user: other (Cigarettes) Quit status: quit date established Second Hand Exposure: Yes Smoking risk assessment performed?: Yes Alcohol Intake: current Alcohol Intake frequency: a few times a month Alcohol type: other Drug use: Never Substance use type: does not use Caregiver/Support person: Yes Household members: spouse Housing: house Communication Needs: Blind Do you need help understanding health information?: Rarely current occupation: Retired Pets and animals: Yes Pets and animals: cat(s) and dog(s) Sexually active: No Do you think of yourself as: straight/heterosexual Current gender identity: male What is your relationship status?: How often do you talk on the phone with friends or family?: twice per week How often do you get together with friends or relatives?: once per week How often do you attend jew or rastafari services?: decline to answer Do you belong to any clubs or organized social groups?: no Panel score (0-1 are the most socially isolated patients): 2 What type of physical activity do you participate in: none Frequency: does not exercise [place]/Anglican: Worship Special ch[place] needs: No Seatbelt use: always Drive intox or ride w/intox services delivery driver: No Do you feel safe at home: Yes Do you feel safe in your relationship?: Yes
[2024-07-04 02:51] LABS: Troponin I 7 ng/L (<or=76)
--- NOTE | 2024-07-04 04:39 | DI.VRAD_ITS ---
PROCEDURE INFORMATION: Exam: XR Chest Exam date and time: 07/04/2024 2:13 AM Age: 68 years old Clinical indication: Other: Chest pressure TECHNIQUE: Imaging protocol: Radiologic exam of the chest. Views: 1 view. COMPARISON: CR XR CHEST 2V PA LATERAL 01/10/2023 1:40 PM FINDINGS: Lungs: Unremarkable. No consolidation. Pleural spaces: Blunting of the right costophrenic angle which may be related to tiny pleural effusion or pleural thickening.No pneumothorax. Heart/Mediastinum: Unremarkable. No cardiomegaly. Bones/joints: Age related osseous changes. IMPRESSION: No acute findings. Dictated and Authenticated by: Harika Johnson MD. Orderin Lucy Nunez MD
[2024-07-04 05:12] LABS: Troponin I 5 ng/L (<or=76)
== END 2024-07-04 04:54 | disposition home or self-care (01) ==
PROVIDERS: Emergency Provider Student in an Organized Health Care Education/Training Program; PCP Family Medicine
DX: I95.89 Other hypotension (principal); I48.91 Unspecified atrial fibrillation; I10 Essential (primary) hypertension; E78.5 Hyperlipidemia, unspecified; J44.9 Chronic obstructive pulmonary disease, unspecified; E11.40 Type 2 diabetes mellitus with diabetic neuropathy, unspecified; Z79.4 Long term (current) use of insulin; Z79.84 Long term (current) use of oral hypoglycemic drugs; Z79.85 Long-term (current) use of injectable non-insulin antidiabetic drugs; Z87.891 Personal history of nicotine dependence
CPT/HCPCS: 80053; 93005; 99285; 71045; 83880; 84484; 85025; 85610; 85730; 93010; 99284

== ENCOUNTER 2024-07-31 20:33 | Outpatient (REF) | payer MEDICARE, OTHER, SELFPAY ==
[2024-07-31 15:05] LABS: COMMENT (LAB VIEW ONLY) 73.53 mg/dL; Microalb ug/mg Crea 7.5 ug/mg Cr
== END 2024-07-31 20:34 | disposition home or self-care (01) ==
LOC: LBN 20:33
PROVIDERS: PCP Family Medicine; Visit Provider Family Medicine
DX: E11.9 Type 2 diabetes mellitus without complications (principal); E11.49 Type 2 diabetes mellitus with other diabetic neurological complication; H81.20 Vestibular neuronitis, unspecified ear; K74.60 Unspecified cirrhosis of liver
CPT/HCPCS: 82043; 82570

== ENCOUNTER 2025-02-05 03:22 | Outpatient (CLI) | payer MEDICARE, OTHER, SELFPAY ==
[2025-02-05 10:19] LABS: Iron 49 ug/dL (65-175); Total Iron Binding Capacity 202 ug/dL (250-450)
[2025-02-05 10:32] LABS: Ferritin 126 ng/mL (26-388)
[2025-02-06 09:38] LABS: Transferrin 167 mg/dL (201-352)
== END 2025-02-05 03:23 | disposition home or self-care (01) ==
PROVIDERS: PCP Family Medicine; Visit Provider Family Medicine
DX: D64.9 Anemia, unspecified (principal)
CPT/HCPCS: 36415; 82728; 83540; 83550; 84466

== ENCOUNTER 2025-02-06 08:11 | Outpatient (CLI) | payer MEDICARE, OTHER, SELFPAY ==
[2025-02-06 08:36] LABS: Abs Immature Grans 0.01 10^3/uL (0.0-0.06); HCT 31.7 % (40.0-50.0); HGB 10.6 g/dL (13.5-17.5); Immature Grans % 0.4 %; MCH 31.3 pg (27.0-33.0); MCHC 33.4 % (32.0-36.0); MCV 94 fL (80-95); MPV 9.6 fL (8.0-11.0); RBC 3.39 10^6/uL (4.36-5.78); RDW 14.6 % (11.8-14.1); RDW-SD 49.5 fL; WBC 2.42 10^3/uL (4.4-10.8)
[2025-02-06 08:43] LABS: ALT 18 U/L (16-63); AST 29 U/L (15-37); Albumin 2.5 g/dL (3.4-5.0); Alkaline Phosphatase 256 U/L (46-116); Anion Gap 7.0 mmol/L (3-11); BUN 12 mg/dL (7-18); Bilirubin, Total 1.3 mg/dL (0.2-1.0); CO2 25.0 mmol/L (21.0-32.0); Calcium 8.5 mg/dL (8.5-10.1); Chloride 109 mmol/L (98-107); Estimated GFR 54.07 (mL/min/1.73m2); Glucose 135 mg/dL (74-106); Magnesium 2.2 mg/dL (1.8-2.4); Potassium 4.3 mmol/L (3.5-5.1); Sodium 141 mmol/L (136-145); Total Protein 6.2 g/dL (6.4-8.2)
[2025-02-06 08:57] LABS: Platelet Count 81 10^3/uL (130-400); RBC Morphology Normal
== END 2025-02-06 08:12 | disposition home or self-care (01) ==
LOC: LBO 08:11
PROVIDERS: PCP Family Medicine; Visit Provider Family Medicine
DX: C22.0 Liver cell carcinoma (principal); K74.60 Unspecified cirrhosis of liver; D61.818 Other pancytopenia
CPT/HCPCS: 36415; 80053; 83735; 85025

== ENCOUNTER 2025-02-13 01:18 | Outpatient (CLI) | payer MEDICARE, OTHER, SELFPAY ==
--- NOTE | 2025-02-13 06:15 | DI.US_ITS ---
Exam(s) US ABDOMEN EXAM: US ABDOMEN CLINICAL HISTORY: cirrhosis of liver, K74.60,? ascites TECHNIQUE: Ultrasound abdomen performed using standard protocol. COMPARISON: CT CT ABDOMEN PELVIS WO from 01/17/2023 MR MR ABDOMEN WO/W from 02/14/2023 FINDINGS: ABDOMINAL AORTA AND IVC: Could not be visualized on this examination. PANCREAS: Normal where visualized. LIVER: The liver has a nodular contour. Hepatopetal flow in the Portal Vein. The mass seen on the MRI and prior CT scan in the inferior right lobe is not visualized on the current ultrasound. The liver measures 15.3cm long. GALLBLADDER:Status post cholecystectomy. BILIARY SYSTEM: Common bile duct measures < 7 mm. No intrahepatic biliary ductal dilation. KIDNEYS: Kidneys are symmetric in size. No evidence of renal calculi. No evidence of hydronephrosis. There is again seen a cyst in the left kidney. This is unchanged compared to the prior examination. There are no follow-up for comparison. SPLEEN: The spleen is enlarged measuring 16.3 cm. ASCITES: There is a large amount of abdominal ascites. IMPRESSION: 1. Hepatic cirrhosis. The mass seen in the inferior right lobe seen on prior CT and MRI examinations is not visualized on this examination. 2. Large amount of abdominal ascites. 3. Splenomegaly. DATA REPOSITORY:
== END 2025-02-13 01:38 ==
LOC: DI 01:18
PROVIDERS: PCP Family Medicine; Visit Provider Nurse Practitioner Family
DX: K74.60 Unspecified cirrhosis of liver (principal); R16.1 Splenomegaly, not elsewhere classified
CPT/HCPCS: 76700

== ENCOUNTER → 2025-02-18 07:27 | Outpatient (BNVA) | payer MEDICARE, OTHER, SELFPAY | PROVIDERS: PCP Family Medicine; Referring Provider Family Medicine; Visit Provider Surgery | DX: R10.9 Unspecified abdominal pain (principal); R18.8 Other ascites | CPT/HCPCS: 99213 ==

== ENCOUNTER 2025-02-19 10:39 | Day surgery (SDC) | payer MEDICARE, OTHER, SELFPAY ==
--- NOTE | 2025-02-18 17:15 | PDOC.DSDIS_ITS ---
Date of service: 02/19/25 Discharge Plan Disposition Patient Disposition: Home Condition: Good Discharge Details Reason For Visit: paracentesis Attending Provider: Oscar Parks Primary Care Provider: Naga Keys Home Meds and New Rx's Prescriptions: Continued (DME) pen needle, diabetic [Comfort EZ Pen [place]] 33 gauge x 3/16 needle See Rx Instructions .ROUTE .MEDSUPPLY Qty: 550 3RF Rx Instructions: inject 6 times/day triamcinolone acetonide 0.1 % cream 1 applic topical BID PRN (Reason: groin rash) Qty: 30 2RF (DME) Dexcom G7 Sensor Device See Rx Instructions .Route Rx Instructions: Monitor BG (DME) Dexcom G7 Treatment Plant Operator Misc See Rx Instructions .Route Rx Instructions: Monitor BG magnesium 250 mg tablet 250 mg PO DAILY acetaminophen 500 mg capsule 1,000 mg PO BID meclizine [Dramamine (meclizine)] 25 mg tablet 25 mg PO DAILY Rx Instructions: Takes 1 daily and takes another PRN sertraline 50 mg tablet 50 mg PO DAILY Qty: 30 2RF lactulose 10 gram/15 mL solution 30 ml PO TID Qty: 946 3RF potassium chloride [Klor-Con 10] 10 mEq tablet extended release 10 meq PO DAILY 90 Days Qty: 90 4RF Rx Instructions: Take one 10 mEq KCl tablet by mouth as directed. ondansetron 4 mg tablet,disintegrating 4 mg PO Q6H PRN (Reason: nausea and vomiting) Qty: 30 4RF hydromorphone 2 mg tablet 2 mg PO BID MDD 2 tabs Qty: 30 0RF multivitamin 1 EACH capsule 1 ea PO DAILY (DME) Accu-Chek Leanne Plus test strp Strip 1 ea Miscellaneous DAILY Qty: 260 4RF Rx Instructions: Check blood sugar three times a day atorvastatin 40 mg tablet 40 mg PO DAILY Qty: 90 4RF Jardiance 25 mg tablet 25 mg PO QAM Qty: 90 3RF esomeprazole magnesium [Nexium] 40 mg capsule,delayed release(DR/EC) 40 mg PO DAILY PRN (Reason: dyspepsia) Qty: 90 4RF insulin glargine U-300 conc [Toujeo Max U-300 SoloStar] 300 unit/mL (3 mL) insulin pen 120 - 160 unit SC TID Qty: 435 3RF Lyzahra NegretePen U-200 Insulin 200 unit/mL (3 mL) insulin pen 40 - 60 unit subcut TID Qty: 81 3RF irbesartan [Avapro] 150 mg tablet 150 mg PO DAILY Qty: 90 3RF montelukast [Singulair] 10 mg tablet 10 mg PO DAILY Qty: 90 3RF propranolol [Inderal LA] 60 mg capsule,extended release 24 hr 60 mg PO DAILY Qty: 90 3RF tirzepatide 15 mg/0.5 mL pen injector 15 mg subcut QWEEK MDD 15 28 Days Qty: 2 12RF Rx Instructions: Inject 15 mg subcutaneously once weekly as directed. tizanidine 2 mg tablet 2 mg PO TID PRN (Reason: muscle spasticity) Qty: 30 2RF furosemide [Lasix] 20 mg tablet 40 mg PO BID Qty: 180 3RF Rx Instructions: dose increase 02/15/25 mometasone 0.1 % cream 1 applic TP DAILY PRN No Action diphenhydramine HCl [Allergy (diphenhydramine)] 25 mg capsule 50 mg PO TID-QID PRN Discharge Instructions Instructions: Abdominal Paracentesis (DC) Additional Instructions: Grey, was good seeing you today, and I hope you feel better after the paracentesis. As I mentioned, have the office call you tomorrow to set up an appointment sometime in the next week or 2. We can do this at your convenience. At that point, we can talk about how you are feeling, and how the overall treatments are going and discussed but more details about a PleurX catheter that would provide easier drainage at home if you desire that. If you need anything before that, please do not hesitate to call at any point. Activity:: Activity as Tolerated Remove Dressings/Wound Care:: 24 hours Shower/Bathe:: 24 hours Diet:: As Tolerated Discharge Orders Discharge Orders: Discharge Order (Routine); Ordered 02/18/25 Ordered By: Oscar Parks DS: Diagnosis Discharge Diagnosis (1) Ascites: Status: Acute Asessment and Plan: Outpatient follow-up
[2025-02-19 11:17] VITALS: BP 112/53; PULSE 77; RESP 18; TEMP 36.4; O2SAT 99
[2025-02-19] MEDS: Lactated Ringers 500 ML 10 ML IV (11:54)
--- NOTE | 2025-02-19 12:30 | PAPNONF_PTH ---
PATIENT: Nick Beebe LOC: [facility] U#:[id number] AGE/SX: 69/M ROOM: RE02/19/[address]: Oscar Parks MD : 1955 BED: DIS: 02/19/2025 SPEC #: [id number] RECD: 02/19/25 15:44 STATUS: HERSON REQ #: [id number] NATALIO: 02/19/25 12:[address]: Oscar Parks DEPT: COUNT INCLUDES THE [facility] Cytology RECD BY: Kenya Justin ENTERED: 02/19/25 15:45 SP TYPE: DANNIELLE YUN DR: Naga Keys MD Tissues: 1 - BODY FLUID CYTO(NOT S/U/N/EM)[facility] Procedures: BODY FLUID CYTO(NOT SPU/UR/NIP/ENDOM)[facility] Comments: [id number] (TV = 1000 ml, SENT FRESH) (REFRIGERATED)
[2025-02-19 13:09] VITALS: BP 117/53; PULSE 81; RESP 17; TEMP 36.2; O2SAT 97
--- NOTE | 2025-02-19 13:12 | OPPNE_ITS ---
Date of service: 02/19/25 Time of Service: 13:12 Procedure Note Date of procedure: 02/19/25 Procedure: Paracentesis Surgeon/Proceduralist/Physician: Oscar Parks Procedure Diagnosis: Symptomatic ascites Procedure Indications: Grey is a 69-year-old man with hepatocellular carcinoma and symptomatic ascites. Procedure Description: I started by performing a limited ultrasound of the abdomen to identify appropriate site for paracentesis. Next, I selected the right mid abdomen as the ideal site for paracentesis. I then prepped and draped the abdomen. Next, using ultrasound guidance, I anesthetized the skin with 1% lidocaine with epinephrine. I then made a small incision in the skin with a 11 blade scalpel. Next, I advanced the 5 Tamazight paracentesis needle and catheter through the incision and into the peritoneal cavity under the direct vision of the ultrasound. These images were saved for record keeping. I aspirated straw- colored ascites. Next, I gently advance the catheter and remove the needle. Specimens were obtained for laboratory analysis. I affixed drainage tubing, and began draining the ascites with the assistance of Vacutainer's. In total, I drained 8 L of ascites. Steri-Strips and Band-Aids were used to dress the wound after removal of the catheter.
[2025-02-19] MEDS: ALBUMIN HUMAN 25 GM/100 ML BTL IVPB ×2 (13:23→13:55)
[2025-02-19 14:02] LABS: Polynuclear Cells 30 %
[2025-02-19 22:15] LABS: Glucose, Fluid 123 mg/dL (See Note)
[2025-02-20 16:50] LABS: Lactate Dehydrogenase (LD), BF 62 U/L
[2025-02-21 11:44] LABS: Protein,Total, BF 1.5 g/dL
== END 2025-02-19 14:30 | disposition home or self-care (01) ==
LOC: SUR 10:39
PROVIDERS: PCP Family Medicine; Visit Provider Surgery
PROC: 0W9G3ZZ Drainage of Peritoneal Cavity, Percutaneous Approach (ICD-10-PCS; CPT 49082; principal; 2025-02-19 11:45)
DX: R18.8 Other ascites (principal); C22.0 Liver cell carcinoma
CPT/HCPCS: 49083; 82042; 96365; 81373; 83615; 84157; 87070; 87205; 88104; 89051; P9047

== ENCOUNTER → 2025-02-28 09:49 | Outpatient (BNVA) | payer MEDICARE, OTHER, SELFPAY | PROVIDERS: PCP Family Medicine; Referring Provider Family Medicine; Visit Provider Surgery | DX: R18.8 Other ascites (principal) | CPT/HCPCS: 99213 ==

== ENCOUNTER 2025-03-08 11:19 | Day surgery (SDC) | payer MEDICARE, OTHER, SELFPAY ==
--- NOTE | 2025-03-07 15:52 | W.PM.DSUDISC ---
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 ondansetron 4 mg tablet,disintegrating 4 mg PO Q6H PRN (Reason: nausea and vomiting) Qty: 30 4RF hydromorphone 2 mg tablet 2 mg PO BID MDD 2 tabs Qty: 30 0RF Mounjaro 12.5 mg/0.5 mL pen injector 12.5 mg subcut QWEEK 28 Days Qty: 2 4RF Rx Instructions: Inject 12.5 mg cutaneously once weekly as directed. multivitamin 1 EACH capsule 1 ea PO DAILY (DME) Accu-Chek Leanne Plus test strp Strip 1 ea Miscellaneous DAILY Qty: 260 4RF Rx Instructions: Check blood sugar three times a day atorvastatin 40 mg tablet 40 mg PO DAILY Qty: 90 4RF Jardiance 25 mg tablet 25 mg PO QAM Qty: 90 3RF esomeprazole magnesium [Nexium] 40 mg capsule,delayed release(DR/EC) 40 mg PO DAILY PRN (Reason: dyspepsia) Qty: 90 4RF insulin glargine U-300 conc [Toujeo Max U-300 SoloStar] 300 unit/mL (3 mL) insulin pen 120 - 160 unit SC TID Qty: 435 3RF Lyumjev KwikPen U-200 Insulin 200 unit/mL (3 mL) insulin pen 40 - 60 unit subcut TID Qty: 81 3RF irbesartan [Avapro] 150 mg tablet 150 mg PO DAILY Qty: 90 3RF montelukast [Singulair] 10 mg tablet 10 mg PO DAILY Qty: 90 3RF propranolol [Inderal LA] 60 mg capsule,extended release 24 hr 60 mg PO DAILY Qty: 90 3RF tirzepatide 15 mg/0.5 mL pen injector 15 mg subcut QWEEK MDD 15 28 Days Qty: 2 12RF Rx Instructions: Inject 15 mg subcutaneously once weekly as directed. furosemide [Lasix] 20 mg tablet 40 mg PO BID Qty: 180 3RF Rx Instructions: dose increase 02/15/25 tizanidine 2 mg tablet 2 mg PO TID PRN (Reason: muscle spasticity) Qty: 30 2RF mometasone 0.1 % cream 1 applic TP DAILY PRN diphenhydramine HCl [Allergy (diphenhydramine)] 25 mg capsule 50 mg PO TID-QID PRN Discharge Instructions Instructions: Abdominal Paracentesis (DC) Stand Alone Forms: Jef Gamble (TATA[facility]), Portal Information Activity:: Activity as Tolerated Diet:: As Tolerated Discharge Orders Discharge Orders: Discharge Order (Routine); Ordered 03/07/25 Ordered By: Oscar Parks DS: Diagnosis Discharge Diagnosis (1) Ascites: Status: Acute Asessment and Plan: Follow-up as needed
--- NOTE | 2025-03-07 16:12 | W.PROCNOTE ---
Date of service: 03/08/25 Time of Service: 13:57 Procedure Note Date of procedure: 03/08/25 Procedure: Paracentesis Surgeon/Proceduralist/Physician: Oscar Parks Procedure Diagnosis: Symptomatic ascites Procedure Indications: Grey is 69 years old, he has symptomatic ascites Procedure Description: I started by performing a limited ultrasound of the abdomen. There is a large volume of ascites in the right upper quadrant. Next, using ultrasound guidance, I anesthetized the skin with 1% lidocaine with epinephrine. I then made a small incision in the skin with a 11 blade scalpel. Next, I advanced the 5 [place]ron[place] paracentesis needle and catheter through the incision and into the peritoneal cavity under the direct vision of the ultrasound. I aspirated straw-colored ascites. Next, I gently advanced the catheter and removed the needle. I affixed drainage tubing, and began draining the ascites with the assistance of Vacutainer's. I drained 8100 mL of ascites. I then remove the catheter, and use a Band-Aid to dress the wound.
[2025-03-08 12:41] VITALS: BP 124/61; PULSE 79; RESP 16; TEMP 36.4; O2SAT 98
[2025-03-08] MEDS: Lactated Ringers 500 ML 10 ML IV (13:09)
[2025-03-08] MEDS: ALBUMIN HUMAN 25 GM/100 ML BTL IVPB ×2 (14:08→14:43)
[2025-03-08 14:11] VITALS: BP 120/79; PULSE 80; RESP 16; TEMP 36.2; O2SAT 99
== END 2025-03-08 15:49 | disposition home or self-care (01) ==
LOC: SUR 11:20
PROVIDERS: PCP Family Medicine; Visit Provider Surgery
PROC: 0W9G3ZZ Drainage of Peritoneal Cavity, Percutaneous Approach (ICD-10-PCS; CPT 49082; principal; 2025-03-08 12:45)
DX: R18.8 Other ascites (principal)
CPT/HCPCS: 49083; 96365; P9047

== ENCOUNTER → 2025-04-15 12:34 | Outpatient (BNVA) | payer MEDICARE, OTHER, SELFPAY | PROVIDERS: PCP Family Medicine; Referring Provider Family Medicine; Visit Provider Surgery | DX: R18.8 Other ascites (principal) | CPT/HCPCS: 49082 ==